=== PATIENT | female | born 1995 | race Caucasian/White ===

== ENCOUNTER → 2017-06-19 10:52 | Outpatient (CLI) | payer SELFPAY ==
[2017-06-20 10:19] LABS: HCG BETA-SUBUNIT QUANT. 74 mIU/mL (.)
== END ==
PROVIDERS: Visit Provider Nurse Practitioner Women's Health
DX: N92.6 Irregular menstruation, unspecified (principal)
CPT/HCPCS: 36415; 84702

== ENCOUNTER → 2017-06-21 11:47 | Outpatient (CLI) | payer SELFPAY ==
--- NOTE | 2017-06-21 11:49 | US_ITS ---
STUDY: ULTRASOUND OF THE FEMALE PELVIS - COMPLETE REASON FOR EXAM: Female, 22 years old. IUD. Positive test. LMP: Unknown. TECHNIQUE: Transabdominal and Transvaginal TECHNICAL QUALITY: Adequate. COMPARISON: None. FINDINGS: The uterus is anteverted and is in a midline position. The uterus measures 8.6 cm x 6.8 cm x 4.2 cm. Normal uterine cervix. The endometrium measures 8.0 mm in thickness, and is hyperechoic. There is no demonstrated endometrial mass. There is no demonstrated myometrial mass. I.U.D. - The patient does have an I.U.D. the IUD appears to be within the myometrium. The right ovary is visualized. The right ovary measures 4.3 cm x 2.8 cm x 2.5 cm. A dominant follicle is seen within it. This measures 1.2 cm x 1.2 cm x 1.2 cm. There is no visualized right adnexal mass or complex lesion. There is normal arterial and normal venous vascularity. The left ovary is visualized. The left ovary measures 2.8 cm x 1.7 cm x 1.3 cm. There is no left ovarian cyst or ovarian mass. There is no visualized left adnexal mass or complex lesion. There is normal arterial and normal venous vascularity. Distended urinary bladder. US/Transvaginal Non- IMPRESSION: The IUD is seen in the lower uterine segment entering the myometrium. No extrauterine gestational sac is seen. Dominant left ovarian follicle. Electronically Signed: Godo Tirado MD at 13:31 EST Tel [phone], Service support ,
--- NOTE | 2017-06-21 11:49 | US_ITS ---
STUDY: ULTRASOUND OF THE FEMALE PELVIS - COMPLETE REASON FOR EXAM: Female, 22 years old. IUD. Positive test. LMP: Unknown. TECHNIQUE: Transabdominal and Transvaginal TECHNICAL QUALITY: Adequate. COMPARISON: None. FINDINGS: The uterus is anteverted and is in a midline position. The uterus measures 8.6 cm x 6.8 cm x 4.2 cm. Normal uterine cervix. The endometrium measures 8.0 mm in thickness, and is hyperechoic. There is no demonstrated endometrial mass. There is no demonstrated myometrial mass. I.U.D. - The patient does have an I.U.D. the IUD appears to be within the myometrium. The right ovary is visualized. The right ovary measures 4.3 cm x 2.8 cm x 2.5 cm. A dominant follicle is seen within it. This measures 1.2 cm x 1.2 cm x 1.2 cm. There is no visualized right adnexal mass or complex lesion. There is normal arterial and normal venous vascularity. The left ovary is visualized. The left ovary measures 2.8 cm x 1.7 cm x 1.3 cm. There is no left ovarian cyst or ovarian mass. There is no visualized left adnexal mass or complex lesion. There is normal arterial and normal venous vascularity. Distended urinary bladder. US/Pelvic (Non ) IMPRESSION: The IUD is seen in the lower uterine segment entering the myometrium. No extrauterine gestational sac is seen. Dominant left ovarian follicle. Electronically Signed: Good Tirado MD at 13:31 EST Tel [phone], Service support ,
[2017-06-21 13:31] LABS: hCG Titer Quant., Serum 153 mIU/mL (<9 non-preg)
== END ==
PROVIDERS: Visit Provider Nurse Practitioner Women's Health
DX: Z32.01 Encounter for pregnancy test, result positive (principal); Z97.5 Presence of (intrauterine) contraceptive device
CPT/HCPCS: 36415; 76830; 76856; 84702; 93976

== ENCOUNTER → 2017-07-27 16:27 | Outpatient (CLI) | payer MEDICAID, SELFPAY ==
[2017-07-27 17:53] LABS: Absolute Lymphocyte Count 2.27 X10^3/ul (0.83-4.51); Absolute Neutrophil Count 9.3 X10^3/uL (2.0-7.7); Basophil# 0.04 X10^3/uL; Basophil% 0.3 % (0-1); Eosinophil# 0.24 X10^3/uL; Eosinophils% 1.9 % (0-5); Hematocrit 39.9 % (37-47); Hemoglobin 13.9 g/dl (12.0-15.0); Lymphocyte # 2.27 X10^3/ul (4.0); Mean Corp Hgb Conc 34.8 g/gl (32-36); Mean Corpuscular Hgb 30.3 pg (27.0-32.0); Mean Corpuscular Volume 86.9 fL (81-99); Mean Platelet Vol. 10.6 fl (6.2-12.0); Monocyte# 0.69 X10^3/uL; Monocyte% 5.5 % (0-10); Neutrophil # 9.26 X10^3/uL (2.7-7.7); Neutrophil % 73.7 % (47-70); Platelet Count 244 K/mm3 (150-450); RBC Distribution Width CV 12.9 % (11.6-14.6); RBC Distribution Width SD 40.4 fl (35.1-43.9); Red Blood Count 4.59 M/mm3 (4.2-5.4); White Blood Count 12.6 K/mm3 (4.4-11.0)
[2017-07-27 18:06] LABS: POSITIVE COUNT NO; POSITIVE DIFFERENTIAL NO; POSITIVE MORPHOLOGY NO
[2017-07-28 01:10] LABS: Rapid Plasmin Reagin (RPR) NONREACTIVE (NONREACTIVE)
[2017-07-28 10:27] LABS: HIV - WCH Non-Reactive (Nonreactive); Rubella IgG 86.8 IU/mL
[2017-07-29 11:02] LABS: HEPATITIS B SURFACE AG Negative (Negative)
== END ==
PROVIDERS: Visit Provider Obstetrics & Gynecology
DX: O09.90 Supervision of high risk pregnancy, unspecified, unspecified trimester (principal); Z3A.10 10 weeks gestation of pregnancy
CPT/HCPCS: 36415; 84702; 85025; 86592; 86703; 86762; 86850; 86900; 87340

== ENCOUNTER → 2017-07-27 18:11 | Outpatient (CLI) | payer MEDICAID, SELFPAY | PROVIDERS: Visit Provider Obstetrics & Gynecology | DX: O26.30 Retained intrauterine contraceptive device in pregnancy, unspecified trimester (principal); Z3A.00 Weeks of gestation of pregnancy not specified | CPT/HCPCS: 87077; 87086; 87088; 87186 ==

== ENCOUNTER → 2017-08-24 16:23 | Outpatient (CLI) | payer MEDICAID, SELFPAY | PROVIDERS: Visit Provider Nurse Practitioner Women's Health | DX: O09.91 Supervision of high risk pregnancy, unspecified, first trimester (principal); Z3A.00 Weeks of gestation of pregnancy not specified | CPT/HCPCS: 87086; 87088; 87186 ==

== ENCOUNTER → 2017-09-21 09:57 | Outpatient (CLI) | payer MEDICAID, SELFPAY ==
[2017-09-24 06:37] LABS: AFP Value-EIA 45.1 ng/mL (.); Comment Report (.); DIA MoM Value 1.07 (.); DIA Value-EIA 172.07 pg/mL (.); DSR (By Age) 1048 (.); DSR (Second Trimester) 8076 (.); Insulin Dep Diabetes No (.); Maternal Age At EDD 24.6 yr (.); hCG MoM 0.82 (.)
[2017-09-24 09:26] LABS: Gestat. Age Based On Ultrasound (.)
== END ==
PROVIDERS: Visit Provider Nurse Practitioner Women's Health
DX: O09.91 Supervision of high risk pregnancy, unspecified, first trimester (principal); Z3A.18 18 weeks gestation of pregnancy
CPT/HCPCS: 36415; 82105; 82677; 84702; 86336; 87086; 87088

== ENCOUNTER → 2017-09-21 15:40 | Outpatient (CLI) | payer SELFPAY | PROVIDERS: Visit Provider Nurse Practitioner Women's Health | DX: O09.91 Supervision of high risk pregnancy, unspecified, first trimester (principal); Z3A.00 Weeks of gestation of pregnancy not specified | CPT/HCPCS: 87086; 87088 ==

== ENCOUNTER → 2017-09-25 09:27 | Outpatient (CLI) | payer MEDICAID, SELFPAY ==
--- NOTE | 2017-09-25 09:29 | US_ITS ---
STUDY: SECOND AND THIRD TRIMESTER OBSTETRICAL ULTRASOUND REASON FOR EXAM: Female, 22 years old. Anatomy scan. LMP: 05/17/2017 : Transabdominal PRIOR ULTRASOUND: 06/21/2017. FINDINGS: There is a single intrauterine fetus. The fetus is in an oblique presentation with the head on the maternal right side. There is demonstrated cardiac activity with a heart rate of 152 bpm. There is a normal amniotic fluid volume. The largest amniotic fluid pocket measures 5.6 cm. The placenta is anterior in location and is not low lying. There are Grade 0 placental changes. Probable incidental accessory lobe. The cervix measures 4.3 cm in length. The bilateral adnexal regions are normal. BIOMETRY: BPD: 4.3: 19 weeks, 0 days HC: 15.5: 18 weeks, 4 days AC: 13.2: 18 weeks, 5 days FL: 2.7: 18 weeks, 3 days CI: FL/BPD: FL/HC: FL/AC: HC/AC: age by current US: 18 weeks, 5 days. PHYLLIS by current US: 02/21/2018. Estimated weight: 244 grams, +/- 36 grams, 34 %. age by prior US: weeks, days. PHYLLIS by prior US: . Age by LMP: 18 weeks, 5 days. PHYLLIS by LMP: 02/21/2018. ANATOMY: Gender: Male Cranium: Normal lateral ventricles. Normal choroid plexus. Normal cerebellum. Normal cisterna magna. Normal face, nose and lips. Chest: Normal 4-chamber heart. Abdomen/Pelvis: Normal diaphragm. Normal stomach. Normal abdominal wall. Normal cord insertion. Normal 3 vessel cord. Normal kidneys. Normal bladder. Spine: Normal cervical spine. Normal thoracic spine. Normal lumbar spine. Normal sacrum. Extremities: Normal bilateral upper extremities. Normal bilateral lower extremities. US/OB Anatomy Scan IMPRESSION: Single live fetus in a right oblique presentation. No demonstrated anatomic abnormality. Placenta is grade 0 and is not low-lying. Cervix is closed. age by current US: 18 weeks, 5 days. PHYLLIS by current US: 02/21/2018. Estimated weight: 244 grams, +/- 36 grams, 34 %. Electronically Signed: Cory Foster MD at 16:08 EDT , Service support ,
== END ==
PROVIDERS: Visit Provider Nurse Practitioner Women's Health
DX: O09.90 Supervision of high risk pregnancy, unspecified, unspecified trimester (principal); O26.30 Retained intrauterine contraceptive device in pregnancy, unspecified trimester; Z3A.00 Weeks of gestation of pregnancy not specified
CPT/HCPCS: 76805

== ENCOUNTER 2017-10-04 21:35 | Outpatient (CLI) | payer MEDICAID, SELFPAY ==
[2017-10-04 21:47] VITALS: BMI 28.7
[2017-10-04 22:22] LABS: Color, Urine Yellow (Yellow); Glucose, Dipstick Normal (Normal); Ketone-Dipstick Negative (Negative); Leukocyte Esterase-Dipstick 25 /ul (Negative); Nitrite-Dipstick Negative (Negative); Occult Blood-Urine Negative /ul (Negative); Protein-Dipstick Negative (Negative); Urine Bilirubin Dipstick Negative (Negative); Urine Clarity Clear (Clear); Urine Urobilinogen Normal (Normal); Urine pH 6.5 (5.0 - 8.0)
[2017-10-04 22:37] LABS: ROM Internal Control Test YES-OK TO RESULT pt. (Internal QC); ROM Patient Test Negative (Negative)
--- NOTE | 2017-10-08 21:39 | OB.TRI.NOTE ---
- Problem List (1) Abdominal pain affecting Status: Acute History of Present Illness Date of Service: 10/04/17 Was patient seen by the physician?: No Reason For Visit: CRAMPING, R/O LABOR Date of Service: 10/04/17 Final PHYLLIS: 03/03/18 Gestational age: 19 Weeks and 1 Days History of Present Illness: cramping and abdominal pain Home Medications Medication Instructions Recorded Vits [Prenatabs FA] 1 tab PO DAILY 01/16/15 Allergies No Known Allergies Allergy (Verified 10/04/17 22:05) - Pertinent Past Medical History Medical History: Past Medical History (Last Reviewed 09/21/17 @ 09:36 by Dai Rae) Anxiety Surgical History: Past Surgical History (Last Reviewed 09/21/17 @ 09:36 by Dai Rae) delivery delivered History of tonsillectomy Hx of appendectomy NST - FHR Rate Baby A Baseline: 140 Impression/Plan abdominal pain WNL liekly physiologic, ROM plus is negative cervix closed dc home
== END 2017-10-04 23:00 | disposition home or self-care (01) ==
LOC: WPOUT 21:40 → WP 21:40
PROVIDERS: Visit Provider Obstetrics & Gynecology
DX: O26.892 Other specified pregnancy related conditions, second trimester (principal); R10.9 Unspecified abdominal pain; Z3A.19 19 weeks gestation of pregnancy
CPT/HCPCS: 59050; 81002; 84112; 99218; G0378

== ENCOUNTER 2017-10-13 20:47 | Emergency (ER) | payer MEDICAID, SELFPAY ==
[2017-10-13 20:47] VITALS: BP 133/68; PULSE 95; RESP 16; TEMP 36.1; O2SAT 98; BMI 28.3
--- NOTE | 2017-10-13 22:01 | ED.VISSUMM ---
- ER Visit Summary Date of Service: 10/13/17 Chief Complaint: Sore throat, nasal congestion and nonproductive cough History of Present Illness: The patient is a 22 F woman who is approximately 21 weeks gestation presents with sore throat that started 3-4 days ago. She now complains of nonproductive cough with nasal congestion. She also reports change in voice. She has not had any drooling. She states it hurts to swallow. She states the pain is in the back of her throat. She is not point to the larynx. She denies headache. She does complain of subjective fever. She denies any visual symptoms. Denies neck pain or neck stiffness. She denies shortness of breath or dyspnea on exertion. This is her second . She states her [employer] consultant is Dr. Shabnam Turcios she has no other complaints. Please read written note. Physical Examination: Vital signs are remarkable for slight elevation in blood pressure of 133/68. Pupils equal round reactive. Extra muscle intact. Sclerae not injected. TMs normal. Nares patent. Posterior pharynx reveals postnasal drainage. There is mild congestion of the nasal mucosa. Trach is midline. There is no cervical lymphadenopathy. Insert cardiopulmonary exam she is alert and oriented ?3. Test Results: Centor score is 0. Emergency Department Course and Treatment: Patient was informed based on her consolation of symptoms she has a viral infection. Antibiotics are not indicated. Since her Centor score is 0 there is no need for strep testing. Treatment Plan: Symptomatic treatment Disposition: Discharged to home with appropriate home-going instructions Impression: Acute viral upper respiratory infection This note was generated with [employer] dictation software. It may contain incorrect words, spelling, and punctuation that were not noted in review of the chart prior to signing ED Disposition - Plan for ED Patient: Disposition: Home or Assisted Living Chief Complaint: Sore Throat Instructions: ED URI Viral Referrals: Care Physician,No Primary [Primary Care Provider] - Shabnam Turcios MD [STAFF PHYSICIAN] - As Needed
--- NOTE | 2017-10-13 22:05 | ED.DCSUM_ITS ---
- ER Visit Summary Date of Service: 10/13/17 Chief Complaint: Sore throat, nasal congestion and nonproductive cough History of Present Illness: The patient is a 22 F woman who is approximately 21 weeks gestation presents with sore throat that started 3-4 days ago. She now complains of nonproductive cough with nasal congestion. She also reports change in voice. She has not had any drooling. She states it hurts to swallow. She states the pain is in the back of her throat. She is not point to the larynx. She denies headache. She does complain of subjective fever. She denies any visual symptoms. Denies neck pain or neck stiffness. She denies shortness of breath or dyspnea on exertion. This is her second . She states her home staging specialist is Dr. Shabnam Turcios she has no other complaints. Please read written note. Physical Examination: Vital signs are remarkable for slight elevation in blood pressure of 133/68. Pupils equal round reactive. Extra muscle intact. Sclerae not injected. TMs normal. Nares patent. Posterior pharynx reveals postnasal drainage. There is mild congestion of the nasal mucosa. Trach is midline. There is no cervical lymphadenopathy. Insert cardiopulmonary exam she is alert and oriented ?3. Test Results: Centor score is 0. Emergency Department Course and Treatment: Patient was informed based on her consolation of symptoms she has a viral infection. Antibiotics are not indicated. Since her Centor score is 0 there is no need for strep testing. Treatment Plan: Symptomatic treatment Disposition: Discharged to home with appropriate home-going instructions Impression: Acute viral upper respiratory infection This note was generated with [employer] dictation software. It may contain incorrect words, spelling, and punctuation that were not noted in review of the chart prior to signing ED Disposition - Plan for ED Patient: Disposition: Home or Assisted Living Chief Complaint: Sore Throat Instructions: ED URI Viral Referrals: Care Physician,No Primary [Primary Care Provider] - Shabnam Turcios MD [STAFF PHYSICIAN] - As Needed
[2017-10-13 22:20] VITALS: BP 108/77; PULSE 69; RESP 15; O2SAT 98
== END 2017-10-13 22:27 | disposition home or self-care (01) ==
PROVIDERS: Emergency Provider Emergency Medicine
DX: J06.9 Acute upper respiratory infection, unspecified (principal)
CPT/HCPCS: 99282

== ENCOUNTER 2017-10-28 12:06 | Emergency (ER) | payer MEDICAID, SELFPAY ==
--- NOTE | 2017-10-28 12:06 | DT_ITS ---
This patient was seen during an EMR downtime October 23, 2017 - October 30, 2017. This patient may have a combination of paper and electronic documentation or all paper documentation. All documentation is viewable within the e-chart portion of [employer] for each patient visit.
--- NOTE | 2017-10-28 12:30 | US_ITS ---
STUDY: SECOND AND THIRD TRIMESTER OBSTETRICAL ULTRASOUND - LIMITED REASON FOR EXAM: Female, 22 years old. Pain with LMP: 05/17/2017 PRIOR ULTRASOUND: 09/25/2017 TECHNIQUE: Transabdominal ultrasound evaluation was performed. FINDINGS: There is a single intrauterine fetus. The fetus is in a breech presentation. There is demonstrated cardiac activity with a heart rate of 130 bpm. There is a normal amniotic fluid volume. The largest amniotic fluid pocket measures 7 x 4.9 cm. The placenta is anterior in location and is not low lying. Accessory lobe versus annular placenta. There are Grade 1 placental changes. The cervix measures 4.0 cm in length. BIOMETRY: BPD: 5.6 cm: 23 weeks, 1 days HC: 21.7 cm: 23 weeks, 5 days AC: 19.6 cm: 24 weeks, 2 days FL: 4 cm: 22 weeks, 6 days Age by LMP: 23 weeks, 3 days. PHYLLIS by LMP: 02/21/2018. age by prior US: 23 weeks, 3 days. PHYLLIS by prior US: 02/21/2018. age by current US: 23 weeks, 4 days. PHYLLIS by current US: 02/20/18. Estimated weight: 607 grams, +/- 89 grams, 49 percentile. US/OB Limited (No Biometrics) IMPRESSION: Single live intrauterine at current gestational age of 23 weeks 4 days with estimated date of delivery 02/20/2018. No evidence of complications currently Electronically Signed: Jean-Pierre Ruiz DO at 13:56 EDT Tel , Service support ,
--- NOTE | 2017-10-28 12:30 | US_ITS ---
STUDY: ABDOMINAL ULTRASOUND - RIGHT UPPER QUADRANT REASON FOR VISIT: Female, 22 years old. Abdominal pain TECHNIQUE: Ultrasound evaluation of the right upper quadrant was performed with real-time and static santacruz-scale imaging. TECHNICAL QUALITY: Adequate. COMPARISON: None. FINDINGS: Liver: The liver measures 14.5 cm. There is normal echogenicity of the liver. The bile ducts are within normal limits. There is hepatic color flow. The direction of portal flow is hepatopetal. There is no demonstrated mass lesion. Gallbladder: Normal distended gallbladder. The gallbladder wall measures 2.5 mm. There is a negative sonographic Massey's sign. There is no pericholecystic fluid. There are no gallstones. Common Bile Duct (C.B.D.): The common bile duct measures 2.4 mm. Pancreas: Normal size of the head, body and tail of the pancreas. There is normal echogenicity of the pancreas. There is no demonstrated pancreatic mass or cyst. Right Kidney: Normal size of the right kidney. The right kidney measures 12.1 cm. Normal renal cortex. The right cortex measures 2.6 cm. There is no demonstrated renal mass or cyst. There is no right hydronephrosis. US/Abdomen Limited IMPRESSION: Normal right upper quadrant ultrasound examination. Electronically Signed: Jean-Pierre Ruiz DO at 13:53 EDT Tel , Service support ,
[2017-10-31 07:13] LABS: Color, Urine Yellow (Yellow); Glucose, Dipstick NEGATIVE (Normal); Ketone-Dipstick Negative (Negative); Leukocyte Esterase-Dipstick Negative /ul (Negative); Nitrite-Dipstick Negative (Negative); Occult Blood-Urine Negative /ul (Negative); Protein-Dipstick Negative (Negative); Urine Bilirubin Dipstick Negative (Negative); Urine Clarity Sl Cldy (Clear); Urine Urobilinogen Normal (Normal)
[2017-10-31 09:40] LABS: ALB/GLOB Ratio 0.7 RATIO (0.9-2.4); AST(SGOT) 12 U/L (15-37); Alanine Aminotransfer ALT/SGPT 17 U/L (13-56); Albumin, Serum 2.8 g/dL (3.2-5.0); Alkaline Phosphatase 62 U/L (45-117); Anion Gap 8 (5-15); BUN 7 mg/dL (7-18); BUN/Creat Ratio 18.9 RATIO (10-20); Calcium,Total 8.4 mg/dL (8.5-10.1); Chloride 107 mmol/L (98-107); Creatinine, Serum 0.37 mg/dL (0.55-1.02); EST Glomerular Filtration Rate 228 mL/min (>60); Est Glom Filt Rate - Afr Amer 276 mL/min (>60); Globulin 3.9 g/dL (2.2-4.2); Glucose 79 mg/dL (74-106); Lipase 92 U/L (73-393); Potassium 4.2 mmol/L (3.5-5.1); Protein, Total 6.7 g/dL (6.4-8.2); Sodium Level 141 mmol/L (136-145)
[2017-10-31 21:23] LABS: Absolute Lymphocyte Count 0.92 X10^3/ul (0.83-4.51); Absolute Neutrophil Count 15.5 X10^3/uL (2.0-7.7); Basophil% 0.3 % (0-1); Hematocrit 36.7 % (37-47); Hemoglobin 12.4 g/dl (12.0-15.0); Lymphocyte # 0.92 X10^3/ul (4.0); Lymphocyte % 5.2 % (19-41); Mean Corp Hgb Conc 33.8 g/gl (32-36); Mean Corpuscular Hgb 31.5 pg (27.0-32.0); Mean Corpuscular Volume 93.1 fL (81-99); Mean Platelet Vol. 10.5 fl (6.2-12.0); Monocyte% 4.7 % (0-10); Neutrophil # 15.48 X10^3/uL (2.7-7.7); Neutrophil % 87.3 % (47-70); POSITIVE COUNT NO; POSITIVE DIFFERENTIAL NO; POSITIVE MORPHOLOGY NO; Platelet Count 221 K/mm3 (150-450); RBC Distribution Width CV 13.2 % (11.6-14.6); RBC Distribution Width SD 43.3 fl (35.1-43.9); Red Blood Count 3.94 M/mm3 (4.2-5.4); White Blood Count 17.7 K/mm3 (4.4-11.0)
[2017-10-31 21:24] LABS: Basophil# 0.05 X10^3/uL; Eosinophil# 0.17 X10^3/uL; Monocyte# 0.84 X10^3/uL
== END 2017-10-28 14:15 | disposition home or self-care (01) ==
LOC: ED 10-29 13:15
PROVIDERS: Emergency Medicine; Emergency Provider Emergency Medicine
DX: O26.892 Other specified pregnancy related conditions, second trimester (principal); R10.11 Right upper quadrant pain; R19.7 Diarrhea, unspecified; O21.2 Late vomiting of pregnancy; Z3A.22 22 weeks gestation of pregnancy
CPT/HCPCS: 76705; 76815; 80053; 81002; 83690; 85025; 87086; 96361; 96374; 96375; 99284; A4216; J2405

== ENCOUNTER → 2017-11-20 17:47 | Outpatient (CLI) | payer MEDICAID, SELFPAY ==
[2017-11-20 20:35] LABS: Chlamydia Trachomatis by PCR Negative (Negative); Neisserai gonorrhoeae by PCR Negative (Negative); Probe Check PASS; Sample Adequacy Control PASS; Specimen Processing Control PASS
== END ==
PROVIDERS: Visit Provider Obstetrics & Gynecology
DX: O09.90 Supervision of high risk pregnancy, unspecified, unspecified trimester (principal)
CPT/HCPCS: 87491; 87591

== ENCOUNTER → 2017-12-05 11:26 | Outpatient (CLI) | payer MEDICAID, SELFPAY ==
[2017-12-05 12:55] LABS: Absolute Lymphocyte Count 1.44 X10^3/ul (0.83-4.51); Absolute Neutrophil Count 10.4 X10^3/uL (2.0-7.7); Basophil# 0.03 X10^3/uL; Basophil% 0.2 % (0-1); Eosinophil# 0.29 X10^3/uL; Eosinophils% 2.2 % (0-5); Hematocrit 35.5 % (37-47); Hemoglobin 11.6 g/dl (12.0-15.0); Lymphocyte # 1.44 X10^3/ul (4.0); Lymphocyte % 11.2 % (19-41); Mean Corp Hgb Conc 32.7 g/gl (32-36); Mean Corpuscular Volume 91.7 fL (81-99); Mean Platelet Vol. 10.6 fl (6.2-12.0); Monocyte# 0.56 X10^3/uL; Monocyte% 4.3 % (0-10); Neutrophil % 80.8 % (47-70); Platelet Count 193 K/mm3 (150-450); RBC Distribution Width CV 13.4 % (11.6-14.6); RBC Distribution Width SD 44.5 fl (35.1-43.9); Red Blood Count 3.87 M/mm3 (4.2-5.4); White Blood Count 12.9 K/mm3 (4.4-11.0)
[2017-12-05 12:57] LABS: POSITIVE COUNT NO; POSITIVE DIFFERENTIAL NO; POSITIVE MORPHOLOGY NO
[2017-12-05 13:24] LABS: Glucose Challenge Gest 1H 50g 151 mg/dL (70-140)
== END ==
PROVIDERS: Nurse Practitioner Women's Health; Visit Provider Obstetrics & Gynecology
DX: O09.90 Supervision of high risk pregnancy, unspecified, unspecified trimester (principal); Z3A.00 Weeks of gestation of pregnancy not specified
CPT/HCPCS: 36415; 82950; 85025

== ENCOUNTER → 2017-12-12 06:41 | Outpatient (CLI) | payer MEDICAID, SELFPAY ==
[2017-12-12 07:27] LABS: Glucose GTT-Gestation. Fasting 87 mg/dL (<105)
[2017-12-12 08:51] LABS: Glucose GTT-Gestational 1 Hr 126 mg/dL (<190)
[2017-12-12 09:35] LABS: Glucose GTT-Gestational 2 Hr 112 mg/dL (<165)
[2017-12-12 11:11] LABS: Glucose GTT-Gestational 3 Hr 138 L (<145)
== END ==
PROVIDERS: Nurse Practitioner Women's Health; Visit Provider Obstetrics & Gynecology
DX: O99.810 Abnormal glucose complicating pregnancy (principal); Z3A.00 Weeks of gestation of pregnancy not specified
CPT/HCPCS: 36415; 82951; 82952

== ENCOUNTER 2018-01-03 21:50 | Outpatient (CLI) | payer MEDICAID, SELFPAY ==
--- NOTE | 2018-01-03 22:32 | OB.TRI.HP_ITS ---
- Problem List (1) Threatened labor Status: Acute History of Present Illness Date of Service: 01/03/18 Was patient seen by the physician?: Yes Reason For Visit: R/O LABOR Date of Service: 01/03/18 Final PHYLLIS: 02/21/18 Gestational age: 33 Weeks and 0 Days History of Present Illness: 22 yo @ 33 weeks presents with co regular ctx q 2-5 min x 2 hrs. she has been working tonight, denies any vb lof admits good fm. she has had a complicated by retained IUD Allergies No Known Allergies Allergy (Verified 12/28/17 08:11) - Pertinent Past Medical History Medical History: Past Medical History (Last Reviewed 12/28/17 @ 08:10 by Marianela Schulz) Anxiety Surgical History: Past Surgical History (Last Reviewed 12/28/17 @ 08:10 by Marianela Schulz) delivery delivered History of tonsillectomy Hx of appendectomy Review of Systems Constitutional: Denies: Fever, Malaise Eyes: Denies: Blurred vision, Vision Change HEENT: Denies: Head Aches, Visual Changes Cardiovascular: Denies: Chest Pain, Palpitations Respiratory: Denies: Cough, Shortness of Breath, Wheezing Gastrointestinal: Reports: Abdominal Pain. 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
[2018-01-03 23:00] VITALS: BMI 32.5
[2018-01-03 23:38] LABS: Mucous, Urine 0 SEEN /hpf (<or=2+); Red Blood Cells-Urine 0 SEEN /hpf (0-5); White Blood Cells 0 SEEN /hpf (0-5)
[2018-01-03 23:39] LABS: Color, Urine Straw (Yellow); Glucose, Dipstick Normal (Normal); Ketone-Dipstick Negative (Negative); Leukocyte Esterase-Dipstick 100 /ul (Negative); Nitrite-Dipstick Negative (Negative); Occult Blood-Urine Negative /ul (Negative); Protein-Dipstick Negative (Negative); Urine Bilirubin Dipstick Negative (Negative); Urine Clarity Clear (Clear); Urine Urobilinogen Normal (Normal)
[2018-01-03 23:47] LABS: Bacteria 1+ /hpf (None Seen); Squamous Epithelial Cells - UA 0-5 SEEN /hpf (5-10)
[2018-01-04 00:25] VITALS: RESP 18
--- NOTE | 2018-01-04 00:35 | NURSING ---
Dr. Turcios in pt room at 2230 and performed SVE.
== END 2018-01-04 00:25 | disposition home or self-care (01) ==
LOC: WPOUT 22:05 → WP 22:06
PROVIDERS: Visit Provider Obstetrics & Gynecology
DX: O60.03 Preterm labor without delivery, third trimester (principal); Z3A.33 33 weeks gestation of pregnancy
CPT/HCPCS: 59025; 59050; 81001; 87086; 87088; 99218; G0378

== ENCOUNTER → 2018-01-11 17:59 | Outpatient (CLI) | payer MEDICAID, SELFPAY | PROVIDERS: Visit Provider Nurse Practitioner Women's Health | DX: N89.8 Other specified noninflammatory disorders of vagina (principal) | CPT/HCPCS: 87070; 87077; 87205 ==

== ENCOUNTER → 2018-01-26 08:49 | Outpatient (CLI) | payer MEDICAID, SELFPAY ==
[2018-01-26 19:38] LABS: Group B Strep DNA By PCR POSITIVE (Negative); Probe Check PASS
== END ==
PROVIDERS: Visit Provider Obstetrics & Gynecology
DX: O09.299 Supervision of pregnancy with other poor reproductive or obstetric history, unspecified trimester (principal); Z3A.36 36 weeks gestation of pregnancy
CPT/HCPCS: 76816; 87653

== ENCOUNTER 2018-02-07 10:40 | Outpatient (CLI) | payer MEDICAID, SELFPAY ==
[2018-02-07 11:10] VITALS: BMI 33.7
--- NOTE | 2018-02-07 18:00 | OB.TRI.NOTE ---
- Problem List (1) 38 weeks gestation of Status: Acute (2) False labor after 37 completed weeks of gestation Status: Acute History of Present Illness Reason For Visit: R/O LABOR Date of Service: 02/07/18 Final PHYLLIS: 02/21/18 Gestational age: 38 Weeks and 0 Days Allergies No Known Allergies Allergy (Verified 02/14/18 09:43) - Pertinent Past Medical History Medical History: Past Medical History (Last Reviewed 02/13/18 @ 13:08 by Marianela Schulz) Anxiety Surgical History: Past Surgical History (Last Reviewed 02/13/18 @ 13:08 by Marianela Schulz) delivery delivered History of tonsillectomy Hx of appendectomy NST - FHR Rate Baby A Baseline: 130 Variability:: Moderate Accelerations:: 15 x 15 Decelerations:: None NST Reactive:: Yes FHR Category:: Category I Uterine Activity:: 0/10 Impression/Plan SVE 1/l/h per RN Reactive NST Cat I FHR d/c home
== END 2018-02-07 11:15 | disposition home or self-care (01) ==
LOC: WPOUT 10:53 → WP 10:54
PROVIDERS: Visit Provider Obstetrics & Gynecology
DX: O47.1 False labor at or after 37 completed weeks of gestation (principal); Z3A.38 38 weeks gestation of pregnancy; O34.211 Maternal care for low transverse scar from previous cesarean delivery
CPT/HCPCS: 59025; 59050; 99218; G0378

== ENCOUNTER 2018-02-14 09:23 | Inpatient (IN) | payer MEDICAID, SELFPAY ==
[2018-02-14] VITALS (18 sets, daily range): BP systolic 101–126; BP diastolic 56–70; PULSE 72–106; RESP 14–18; TEMP 36.1–36.8; O2SAT 87–100; BMI 33.9
[2018-02-14] MEDS: Lactated Ringers 1,000 ML 999 ML IV (10:00)
[2018-02-14 10:26] LABS: Differential Indicated MANUAL DIFF; Hematocrit 35.9 % (37-47); Mean Corp Hgb Conc 33.4 g/gl (32-36); Mean Corpuscular Hgb 29.7 pg (27.0-32.0); Mean Corpuscular Volume 88.9 fL (81-99); Mean Platelet Vol. 10.6 fl (6.2-12.0); POSITIVE COUNT YES; POSITIVE DIFFERENTIAL NO; POSITIVE MORPHOLOGY YES; Platelet Count 169 K/mm3 (150-450); RBC Distribution Width CV 13.3 % (11.6-14.6); RBC Distribution Width SD 42.8 fl (35.1-43.9); Red Blood Count 4.04 M/mm3 (4.2-5.4); White Blood Count 11.5 K/mm3 (4.4-11.0)
[2018-02-14] MEDS: Lactated Ringers 1,000 ML 150 ML IV (11:01)
[2018-02-14 11:02] LABS: Eosinophil 2 % (0-5); Lymphocyte 20 % (19-41); Metamyelocyte 1 % (0-1); Monocyte 2 % (0-10); Neutrophil-Band 1 % (0-5); Neutrophil-Segmented 74 % (47-70); Platelet Estimate ADEQUATE (ADEQ); Red Cell Morphology NORM C+C NORMAL (NORM C&C); Total Cells Counted 100 (MANUAL DIFF)
[2018-02-14] MEDS: Sodium Citrate/Citric Acid 30 ML UDC PO (12:01)
[2018-02-14] MEDS: Cefazolin 2 GM in 0.9% Normal Saline 100 ML IV (12:08)
--- NOTE | 2018-02-14 12:40 | HP.PCM_ITS ---
- Problem List (1) Positive GBS test Status: Acute Comment: PCN in labor (2) Status: Acute Qualifiers: Comment: negative quad screen. anatomy US normal. carrier screening declined. (3) History of macrosomia in in prior , currently Status: Acute Comment: previous 9lb 13 ounces cs secondary to prolapsed cord, check growth us at 36 weeks (4) Abnormal glucose affecting Status: Acute Comment: 3 hr GTT ordered (5) History of Status: Acute Comment: 79% chance of success, discussed risks benefits alternatives, uptodate education given (6) UTI (urinary tract infection) in in first trimester Status: Acute Comment: marcobid; 07/24: rpt culture E Coli-keflex; Repeat culture collected 09/21/17/negative (7) Supervision of high-risk Status: Acute Qualifiers: Comment: PRR PHYLLIS 02/21/18 boy [facility] [place] boyfriend Virgil (8) complicated by intrauterine device (IUD) Status: Acute Comment: discussed with DANA- recommend keeping IUD in situ, in low/mid portion of uterus History Date of Admission: 01/22/15 Final PHYLLIS: 02/21/18 Gestational age: 39 Weeks and 0 Days History of this : This is a 22 year-old, , at 39 weeks gestational age presents for RLTCS. she declines TOLAC. she has had a complicateed by IUD in place., Medical History: Medical History (Last Reviewed 02/13/18 @ 13:08 by Marianela Schulz) Anxiety F41.9 Surgical History: Surgical History (Last Reviewed 02/13/18 @ 13:08 by Marianela Schulz) delivery delivered O82 History of tonsillectomy Z98.890, Z90.89 Hx of appendectomy Z98.890, Z90.49 Allergies No Known Allergies Allergy (Verified 02/14/18 09:43) Home Medications: Home Medications Vits [Prenatabs FA] 1 tab PO DAILY 01/16/15 Smoking Status: Former smoker Alcohol: None Number of Fetus(es): 1 Heart Tracin History Past Pregnancies: Past Pregnancies previous term cs sec cord prolapse, had macrosomia Delivery Date Name GA/Weeks Outcome Route Weight Infant Gender Labor Length Anesthesia Delivery Location Provider FOB Labs: Mom's Labs & Results 02/14/18 02/14/18 09:50 09:50 WBC 11.5 H RBC 4.04 L Hgb 12.0 Hct 35.9 L MCV 88.9 MCH 29.7 MCHC 33.4 RDW 13.3 RDW Differential 42.8 Plt Count 169 MPV 10.6 Neut % (Auto) Not Reportable Absolute Neuts (auto) Not Reportable Total Counted 100 Neutrophils % (Manual) 74 H Band Neutrophils % 1 Lymphocytes % (Manual) 20 Monocytes % (Manual) 2 Eosinophils % (Manual) 2 Metamyelocytes % 1 Diff Path Review N/A Platelet Estimate ADEQUATE RBC Morphology NORM C+C Blood Type O POSITIVE Antibody Screen NEGATIVE Course Did the patient receive Yes care? Labs Blood Type: O RH: POSITIVE RPR/VDRL/Syphilis Nonreactive Rubella status Immune HbSAg Negative Date Done: 07/27/17 Chlamydia Negative Gonorrhea Negative HIV/AIDS Non-Reactive Group B Strep: Positive Current Obstetrical History Gestational Diabetes No Incompetent Cervix No Infertility No IUGR No Macrosomia No Hypertension/Pre-eclampsia No Placenta Previa/Abruption No PTL/PROM No Uterine anomaly No Oligohydramnios No Polyhydramnios No Multiple gestation No Past Medical History Asthma No Diabetes No Hypertension No Heart disease No Mitral valve prolapse No Neurologic/Seizure disorder/ No Migraines Kidney disease No Liver disease No Varicosities No Clotting disorders/Hx of DVT No Thyroid Dysfunction No Other medical diseases No Psychiatric disorders No Major trauma No Abnormal PAP smear No Sleep apnea No Mammogram in the last 2 years No Social History Marital Status: SINGLE Alleged father Camryn Hx Smoking Yes Smoking Status Former smoker Review of Systems Constitutional: Denies: Fever, Malaise Eyes: Denies: Blurred vision, Vision Change HEENT: Denies: Head Aches, Visual Changes Cardiovascular: Denies: Chest Pain, Palpitations Respiratory: Denies: Cough, Shortness of Breath, Wheezing Gastrointestinal: Denies: Abdominal Pain, Diarrhea, Nausea, Vomiting Genitourinary: Denies: Dysuria, Hematuria Musculoskeletal: Denies: Joint Pain, Muscle pain Skin: Denies: Lesions, Rash Neurological: Denies: Blurred vision, Focal weakness, Headaches Psychiatric: Denies: Anxiety, Depression Endocrine: Denies: Heat/ Cold Intolerance Hematologic/ Lymphatic: Denies: Easy Bruising, Easy Bleeding Physical Exam General: Alert, Cooperative, No apparent distress HEENT: Atraumatic, Normocephalic. Negative for: Thyromegaly, Lymphadenopathy Cardiovascular: Regular rate Lungs: Normal air movement Abdomen: Soft, Non Tender, Gravid Neurological: Deep Tendon Reflexes 2+/4 and Symmetrical, Neuro grossly intact. 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 Negative for: Vulvar lesions Estimated gestational size: Appropriate for gestational size Presentation: Cephalic Assessment/Plan All Active Problems (Last Reviewed 02/13/18 @ 13:08 by Marianela Schulz) Positive GBS test (Acute) (Acute) History of macrosomia in infant in prior , currently (Acute) Abnormal glucose affecting (Acute) History of (Acute) UTI (urinary tract infection) in in first trimester (Acute) Supervision of high-risk (Acute) complicated by intrauterine device (IUD) (Acute) Abdominal pain affecting (Resolved) screening encounter (Resolved) Threatened labor (Resolved) This is a 22 year-old, at 39 weeks gestational age. plan RLTCS, iud removal.
--- NOTE | 2018-02-14 12:43 | OP.PCM_ITS ---
Problem List (1) Positive GBS test Status: Acute Comment: PCN in labor (2) Status: Acute Qualifiers: Comment: negative quad screen. anatomy US normal. carrier screening declined. (3) History of macrosomia in infant in prior , currently Status: Acute Comment: previous 9lb 13 ounces cs secondary to prolapsed cord, check growth us at 36 weeks (4) Abnormal glucose affecting Status: Acute Comment: 3 hr GTT ordered (5) History of Status: Acute Comment: 79% chance of success, discussed risks benefits alternatives, uptodate education given (6) UTI (urinary tract infection) in in first trimester Status: Acute Comment: marcobid; 07/24: rpt culture E Coli-keflex; Repeat culture collected 09/21/17/negative (7) Supervision of high-risk Status: Acute Qualifiers: Comment: PRR PHYLLIS 02/21/18 boy [facility] boyfriend [place] (8) complicated by intrauterine device (IUD) Status: Acute Comment: discussed with DANA- recommend keeping IUD in situ, in low/mid portion of uterus Report of Operation Date of Procedure: 02/14/18 Pre-Operative Diagnosis: prev csection declines tolac Post-Operative Diagnosis: same Surgery/Procedure Performed:: rltcs Description of Surgical Findings:: normal uterus tubes ovaries vertex male infant, iud found intraabdominal attached to uterus and omentum. 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 Spinal anesthesia was placed without difficulty. Torres catheter was placed. The patient was placed in the dorsal supine position with leftward tilt. Patient was prepped and draped in the normal sterile fashion. Pfannenstiel skin incision was made with the scalpel and carried through to the underlying layer of fascia with the scalpel. Fascia was nicked in the midline and the incision extended laterally. The rectus bellies were dissected off superiorly and inferiorly with out complication both sharply and bluntly. The peritoneum was entered digitally. The incision was stretched and a low transverse uterine incision was made with the scalpel. The 's head was delivered atraumatically followed by the anterior and posterior shoulders without complication the rest of the infant delivered. The cord was clamped and cut and the infant was handed off to awaiting nurse. The placenta was delivered spontaneously immediately following and was noted to be intact and have a three- vessel cord. The uterus was exteriorized cleared of all clots and debris, and the incision was closed in a double layer closure using #1 Monocryl. the iud was then found chronically perforated and attached to the fundus of the uterus through a posterior fundal perforation connected through to the omentum and encased in omentum. this was dissected out and removed without complication, no active uterine perforation seen The uterus was returned to the maternal abdomen and gutters were cleared of all clots and debris. The ovaries and fallopian tubes were noted to be within normal limits. The peritoneum was closed with 3-0 Monocryl in a running fashion. Fascia was closed with 0 PDS in a running fashion. Subcutaneous tissue was copiously irrigated and the skin was closed with 3-0 Monocryl in a subcuticular fashion. Mepilex dressing were applied without complication. Patient was taken to recovery in stable condition. Grafts/Implants Used: none - Complications none - Admit VTE Documentation VTE Present on Admission: No VTE Mechan Device Prophylaxis: SCD's
[2018-02-14] MEDS: Oxytocin 30 units/NS 500 ml 30 UNITS/500 ML IV.SOLN 167 UNITS IV (12:55)
[2018-02-14] MEDS: Lactated Ringers 1,000 ML 100 ML IV ×2 (13:35→22:19)
[2018-02-14] MEDS: Ketorolac 30 MG/ML Syringe IV (18:15)
[2018-02-15] VITALS (11 sets, daily range): BP systolic 97–124; BP diastolic 54–75; PULSE 75–86; RESP 16–18; TEMP 35.9–36.8; O2SAT 93–98
[2018-02-15] MEDS: Ketorolac 30 MG/ML Syringe IV ×5 (00:16→23:51)
[2018-02-15 05:38] LABS: Hemoglobin 10.5 g/dl (12.0-15.0); Mean Corp Hgb Conc 33.9 g/gl (32-36); Mean Corpuscular Hgb 30.4 pg (27.0-32.0); Mean Corpuscular Volume 89.9 fL (81-99); Mean Platelet Vol. 9.8 fl (6.2-12.0); Platelet Count 147 K/mm3 (150-450); RBC Distribution Width CV 13.3 % (11.6-14.6); RBC Distribution Width SD 42.7 fl (35.1-43.9); Red Blood Count 3.45 M/mm3 (4.2-5.4); White Blood Count 11.9 K/mm3 (4.4-11.0)
[2018-02-15 05:39] LABS: Scan Indicated on CBC? Y/N NO
--- NOTE | 2018-02-15 07:57 | PCM.PN.OB ---
Subjective: Doing well. Pain controlled. No CP, SOB. - Physical Exam General: Alert, Oriented x3 Abdomen: Soft, Non-Distended, - - FF below U. Minimal tenderness Vital Signs Temp Pulse Resp BP Pulse Ox 98.2 F 78 16 97/54 L 96 02/15/18 04:35 02/15/18 05:30 02/15/18 05:30 02/15/18 04:35 02/15/18 05:30 Oxygen Delivery Method Room Air Weight: 197 lb 12.8 oz Body Mass Index (BMI) 33.9 Intake and Output for Last 24 Hours 02/13/18 02/14/18 02/15/18 23:59 23:59 23:59 Intake Total 2345 / 2345 1101 / 1101 Output Total 250 / 250 1200 / 1200 Balance 2095 / 2095 -99 / -99 Laboratory Tests Past 24 Hrs 02/14/18 02/14/18 02/15/18 09:50 09:50 05:30 WBC 11.5 H 11.9 H RBC 4.04 L 3.45 L Hgb 12.0 10.5 L Hct 35.9 L 31.0 L MCV 88.9 89.9 MCH 29.7 30.4 MCHC 33.4 33.9 RDW 13.3 13.3 RDW Differential 42.8 42.7 Plt Count 169 147 L MPV 10.6 9.8 Neut % (Auto) Not Reportable Absolute Neuts (auto) Not Reportable Total Counted 100 Neutrophils % (Manual) 74 H Band Neutrophils % 1 Lymphocytes % (Manual) 20 Monocytes % (Manual) 2 Eosinophils % (Manual) 2 Metamyelocytes % 1 Diff Path Review N/A Platelet Estimate ADEQUATE RBC Morphology NORM C+C Blood Type O POSITIVE Antibody Screen NEGATIVE Medical Necessity - Tobacco Use Smoking Status: Former smoker Assessment/Plan All Active Problems (Last Reviewed 02/13/18 @ 13:08 by Marianela Schulz) Positive GBS test (Acute) (Acute) History of macrosomia in infant in prior , currently (Acute) Abnormal glucose affecting (Acute) History of (Acute) UTI (urinary tract infection) in in first trimester (Acute) Supervision of high-risk (Acute) complicated by intrauterine device (IUD) (Acute) Abdominal pain affecting (Resolved) screening encounter (Resolved) Threatened labor (Resolved) LTRCS POD#1 Routine care. Up to ambulate today. . Pain controlled
[2018-02-15] MEDS: Prenatal Vits Tablet 1 TABLET PO (11:39)
[2018-02-15] MEDS: 0.9% Saline Lock 10 ML Syringe IV ×3 (11:39→23:51)
[2018-02-15] MEDS: Senna/Docusate Sodium 1 Tablet PO (11:40)
[2018-02-15] MEDS: oxyCODONE 5 MG Tablet PO ×2 (13:13→17:37)
[2018-02-16 02:00] VITALS: BP 114/80; PULSE 93; RESP 16; TEMP 36.5
[2018-02-16] MEDS: 0.9% Saline Lock 10 ML Syringe IV ×2 (06:08→11:22)
[2018-02-16] MEDS: Ketorolac 30 MG/ML Syringe IV ×2 (06:08→11:22)
[2018-02-16 08:45] VITALS: BP 122/81; PULSE 87; RESP 18; TEMP 36.4; O2SAT 98
[2018-02-16] MEDS: Acetaminophen 500 MG Tablet 1000 MG PO (09:18)
[2018-02-16] MEDS: Senna/Docusate Sodium 1 Tablet PO (10:39)
--- NOTE | 2018-02-16 11:04 | DCINST_ITS ---
Discharge Diet: No Restrictions Discharge Activity: May Not Drive - for 2 weeks, May not drive while taking narcotic pain medications., May Shower, May Take a Tub Bath - in 7 days May resume sexual activity in: 4-6 weeks Lifting Restrictions: 20 pounds Additional Activity Instructions:: Nothing in the vagina for 4-6 weeks. You may return to work/school in 6 weeks. Call your doctor if your incision/area has: Continuous Slow Oozing, Sudden Increased Bleeding, Increased Pain/ Swelling, Increased Redness, Foul Smelling Discharge Call your doctor if you observe: Fever of 101 or Higher, Using more than one pad per hour - for 2 hours Suture Line Care: Avoid Pulling/Pushing, Avoid Pinching/Bending Cleanse incision/area with: Keep Dressing Clean & Dry Additional Instructions: If you experience any of the following, contact your healthcare provider. * Bleeding that soaks a pad every hour for 2 hours * Fever 100.4 or higher * Unrelieved incision or abdominal pain * Swelling, redness, discharge or bleeding from your incision or episiotomy site * Your incision begins to separate * Problems urinating (including inability to urinate or burning while urinating). * Visual changes * Severe headache * Flu-like symptoms * Pain or redness in one of both of your breasts * Pain, warmth, tenderness or swelling in your legs, especially the calf area * Frequent nausea and vomiting * Symptoms of depression or anxiety If you experience any of the following, call 911 or go to the nearest Emergency Room. * Chest pain * Problems breathing * Seizure activity * Partial or complete paralysis of a body part, slurred speech, weakness or drooping of the face, or a sudden inability to walk or hold your balance Allergies/Adverse Reactions: Allergies No Known Allergies Allergy (Verified 02/14/18 09:43) Medications to take at Discharge Vits [Prenatabs FA] 1 tab PO DAILY 01/16/15 Naproxen [Naprosyn] 250 - 500 mg PO Q8H PRN PRN #30 tablet 02/16/18 Oxycodone HCl/Acetaminophen [Percocet 5-325] 1 - 2 tablet PO Q4H PRN PRN 7 Days #28 tablet 02/16/18 The following prescriptions were given: Oxycodone HCl/Acetaminophen [Percocet 5-325] 1 - 2 tablet PO Q4H PRN PRN 7 Days #28 tablet PRN Reason: Moderate-Severe pain Naproxen [Naprosyn] 250 - 500 mg PO Q8H PRN PRN #30 tablet PRN Reason: MILD PAIN Follow-Up: Call to make an appointment with your doctor for an incision check in 1-2 weeks. You will also need a 6 week post- follow up appointment. Test results from this visit will be discussed in further detail at your follow- up appointment, if applicable. Please Follow Up With: Shabnam Turcios MD - Call to make an appointment for an incision check in 1-2 [phone] When: You will need a post- check in 6 weeks. Primary Care Physician: Care Physician,No Primary [Primary Care Provider] -
== END 2018-02-16 11:45 | disposition home or self-care (01) | DRG 371 ==
PROVIDERS: Admitting Provider Obstetrics & Gynecology; Referring Provider Obstetrics & Gynecology; Visit Provider Obstetrics & Gynecology
PROC: 10D00Z1 Extraction of Products of Conception, Low, Open Approach (ICD-10-PCS; CPT 59514; principal; 2018-02-14 11:45)
DX: O34.211 Maternal care for low transverse scar from previous cesarean delivery (principal); O26.33 Retained intrauterine contraceptive device in pregnancy, third trimester; O99.824 Streptococcus B carrier state complicating childbirth; Z3A.39 39 weeks gestation of pregnancy; Z37.0 Single live birth; Z87.891 Personal history of nicotine dependence
CPT/HCPCS: 85025; 85027; 86850; 86900; 99218; J7120; 90686; A4216; G0378

== ENCOUNTER → 2018-03-28 17:02 | Outpatient (CLI) | payer MEDICAID, SELFPAY ==
[2018-04-03 11:50] LABS: HPV Reflexed? NOT INDICATED
== END ==
LOC: LAB 17:04 → LABSPEC 17:08
PROVIDERS: Referring Provider Obstetrics & Gynecology; Visit Provider Obstetrics & Gynecology
DX: Z12.4 Encounter for screening for malignant neoplasm of cervix (principal)
CPT/HCPCS: 87624; 88175; G0145

== ENCOUNTER 2022-12-27 18:17 | Emergency (ER) | payer MEDICAID, SELFPAY ==
[2022-12-27 18:18] VITALS: BP 124/89; PULSE 94; RESP 18; TEMP 36.2; O2SAT 100; BMI 29.5
[2022-12-27] MEDS: Acetaminophen 500 MG Tablet 1000 MG PO (19:18)
--- NOTE | 2022-12-27 19:30 | RAD_ITS ---
INDICATION: Injury/Pain EXAMINATION/TECHNIQUE: X-RAY - XR Spine Cervical 4 or 5 Views COMPARISON: FINDINGS: VERTEBRAE: Preserved vertebral body height. No fracture. No spondylolisthesis. Preservation of the normal cervical lordosis. No significant facet arthropathy. DISCS: Disc spaces are maintained. NECK SOFT TISSUES: No prevertebral soft tissue widening. LUNG APICES: Clear. RAD/Cerv Spine 2 or 3 Views IMPRESSION: No evidence of acute fracture or spondylolisthesis. Electronically Signed: Iram Marquez MD at 20:23 EDT Reading Location ID and State: [id number] / Tel , Service support ,
--- NOTE | 2022-12-27 19:30 | RAD_ITS ---
INDICATION: Injury/Pain EXAMINATION/TECHNIQUE: X-RAY - XR Spine Lumbar 2 or 3 Views COMPARISON: FINDINGS: VERTEBRAE: Preserved vertebral body height. No fracture. No spondylolisthesis. Preservation of the normal lumbar lordosis. No significant facet arthropathy. DISCS: Disc spaces are maintained. INCLUDED ABDOMEN: Included bowel gas pattern is non-obstructive. RAD/Lumbar Spine 2 or 3 Views IMPRESSION: No evidence of lumbar spinal fracture or spondylolisthesis. Electronically Signed: Iram Marquez MD at 20:24 EDT Reading Location ID and State: [id number] / Tel , Service support ,
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
[2022-12-27] MEDS: oxyCODONE 5 MG Tablet PO (21:13)
[2022-12-27 21:17] VITALS: PULSE 65; RESP 18; O2SAT 97
== END 2022-12-27 21:19 | disposition home or self-care (01) ==
PROVIDERS: Emergency Provider Emergency Medicine; Visit Provider Emergency Medicine
DX: S16.1XXA Strain of muscle, fascia and tendon at neck level, initial encounter (principal); S39.012A Strain of muscle, fascia and tendon of lower back, initial encounter; M25.552 Pain in left hip; M25.562 Pain in left knee; V49.40XA Driver injured in collision with unspecified motor vehicles in traffic accident, initial encounter; Y92.410 Unspecified street and highway as the place of occurrence of the external cause; Z87.891 Personal history of nicotine dependence
CPT/HCPCS: 72040; 72100; 99283

== ENCOUNTER 2022-12-28 17:33 | Emergency (ER) | payer MEDICAID, SELFPAY ==
[2022-12-28 17:34] VITALS: BP 128/96; PULSE 91; RESP 14; TEMP 36.4; O2SAT 100; BMI 28.3
--- NOTE | 2022-12-28 17:52 | CT_ITS ---
STUDY: CT CERVICAL SPINE WITHOUT CONTRAST REASON FOR EXAM: Female, 27 years old. Trauma RADIATION DOSAGE (If Supplied By Facility): CTDIvol = ( 16.02 ) mGy, DLP = ( 360.65 ) mGycm TECHNIQUE: High resolution transaxial imaging was performed without contrast material. Sagittal and coronal images were reconstructed. Individualized dose optimization techniques were used for this CT. COMPARISON: X-ray FINDINGS: Normal craniovertebral junction. Normal anterior atlantoaxial articulation. Normal odontoid process. Normal cervical lordosis. Normal vertebral bodies and posterior osseous elements. There is no acute fracture. C2-3: Normal endplates. Normal disc height and morphology. Normal central canal and intervertebral neuroforamina. C3-4: Normal endplates. Normal disc height and morphology. Normal central canal and intervertebral neuroforamina. C4-5: Normal endplates. Normal disc height and morphology. Normal central canal and intervertebral neuroforamina. C5-6: Normal endplates. Normal disc height and morphology. Normal central canal and intervertebral neuroforamina. C6-7: Normal endplates. Normal disc height and morphology. Normal central canal and intervertebral neuroforamina. C7-T1: Normal endplates. Normal disc height and morphology. Normal central canal and intervertebral neuroforamina. Normal visualized soft tissue structures. CT/Spine Cervical without Contras IMPRESSION: Normal unenhanced CT examination of the cervical spine. Electronically Signed: Avel Bennett MD at 19:39 EDT ,
--- NOTE | 2022-12-28 17:53 | CT_ITS ---
STUDY: CT BRAIN WITHOUT CONTRAST REASON FOR EXAM: Female, 27 years old. Pain RADIATION DOSAGE (If Supplied By Facility): CTDIvol = ( 47.06 ) mGy, DLP = ( 802.10 ) mGycm TECHNIQUE: Transaxial CT imaging of the brain was performed without administration of intravenous contrast material. Individualized dose optimization techniques were used for this CT. COMPARISON: No relevant priors. FINDINGS: Normal soft tissue structures. Normal calvarium. Normal size ventricles and extra-axial spaces for the patient''s age. Normal white matter tracts of the cerebral hemispheres. Normal basal ganglia and thalami. Normal brainstem. Normal cerebellum. There is no intracranial hemorrhage. There are no findings of an acute ischemic infarction. Normal visualized paranasal sinuses. CT/Brain/Head without Contrast IMPRESSION: Normal unenhanced CT scan of the brain. Electronically Signed: Avel Bennett MD at 19:29 EDT ,
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
[2022-12-28] MEDS: DiphenhydrAMINE 50 MG/ML Syringe 25 MG IV (18:02)
[2022-12-28] MEDS: Metoclopramide 10 MG/2 ML Vial IV (18:02)
[2022-12-28] MEDS: 0.9% Normal Saline 1,000 ML 999 ML IV (18:02)
--- NOTE | 2022-12-28 19:00 | CM.ED ---
Social Work Note Referral Source: case find Referral Reason: no PCP SW met with patient and introduced herself and role as [facility] [place]. Patient lying on hospital bed and agreeable to speak with SW with guest present. SW inquired about patient's insurance and current PCP. Patient verified insurance and reports no current PCP. SW provided patient with a list of local PCPs in network with patient's insurance and accepting new patients. Patient was receptive towards list and voiced no other needs. SW remains available if needs arise. Dorothea Barbour [employer], ANGELICA
[2022-12-28] MEDS: Ketorolac 15 MG/ML Vial IV (19:51)
[2022-12-28 20:35] VITALS: BP 136/86; PULSE 76; RESP 16; O2SAT 99
== END 2022-12-28 21:26 | disposition home or self-care (01) ==
PROVIDERS: Emergency Provider Student in an Organized Health Care Education/Training Program; Visit Provider Student in an Organized Health Care Education/Training Program
DX: S39.012A Strain of muscle, fascia and tendon of lower back, initial encounter (principal); S16.1XXA Strain of muscle, fascia and tendon at neck level, initial encounter; S06.0X0A Concussion without loss of consciousness, initial encounter; V87.7XXA Person injured in collision between other specified motor vehicles (traffic), initial encounter; F17.210 Nicotine dependence, cigarettes, uncomplicated; F41.9 Anxiety disorder, unspecified
CPT/HCPCS: 70450; 72125; 72131; 99283; J7030

== ENCOUNTER → 2024-01-03 | Outpatient (CLI) | payer MEDICAID, SELFPAY ==
--- NOTE | 2024-01-03 15:11 | NEURO ---
NCS and/or EMG Patient Report Ordering Doctor: Zackary Wood [facility] DATE OF SERVICE: 01/03/24 Aisha presents with complaints of numbness and weakness in both hands for the past several months. Electrodiagnostic findings: Left median motor nerve demonstrates normal distal latency, amplitude and conduction velocity. Right median motor nerve demonstrates normal distal latency and amplitude with reduction in conduction velocity. Ulnar motor responses are within normal limits bilaterally. Normal median and ulnar F?waves. Prolonged right median sensory latency at the wrist. Absent left median palmar response. Needle EMG testing was performed the upper limbs. All muscles tested showed no evidence of denervation with normal motor unit action potentials Electrodiagnostic impression: This is an abnormal study of the upper limbs 1. Electrodiagnostic findings suggestive of bilateral median mononeuropathy. This is consistent with a mild bilateral carpal tunnel syndrome. 2. No electrodiagnostic evidence is noted for ulnar neuropathy, including cubital tunnel syndrome. 3. No electrodiagnostic evidence noted for cervical radiculopathy. Multi Select Codes Neurology Neurology Interp Codes: 01219-25 Musc test done w/n test comp (interp) (2) and 87142-69 Nrv cndj test 13/> studies (interp)
== END | disposition home or self-care (01) ==
LOC: PSN 13:22
PROVIDERS: PCP Nurse Practitioner Family; Referring Provider Nurse Practitioner Family; Visit Provider Nurse Practitioner Family
DX: G56.03 Carpal tunnel syndrome, bilateral upper limbs (principal)
CPT/HCPCS: 95886; 95913

== ENCOUNTER → 2024-01-30 | Outpatient (CLI) | payer MEDICAID, SELFPAY ==
--- NOTE | 2024-01-30 16:37 | MRI_ITS ---
STUDY: MRI BRAIN WITH AND WITHOUT CONTRAST REASON FOR EXAM: Female, 28 years old. MIGRAINE TECHNIQUE: Standardized multiplanar fat and water weighted pulse sequences were obtained. 17ML IV CLARISCAN was administered for the contrast portion of the examination. COMPARISON: Head CT dated December 28, 2022 FINDINGS: Normal size of the ventricles and extra-axial spaces for the patient''s age. Normal white matter tracts of the supratentorial brain. There is no evidence for recent intracranial ischemia or other cause of cytotoxic edema on diffusion weighted imaging (DWI). There are no demyelinating plagues of the supratentorial brain, brainstem or cerebellum. There are no findings suspicious for multiple sclerosis (MS). There are no white matter hyperintensities. Specifically, there are no focal areas of white matter gliosis which are occasionally associated with vasospastic migraine headaches. Normal bilateral basal ganglia. Normal thalami. There is no extra-axial fluid accumulation. Normal flow voids within the major intracranial circulation suggesting patency by spin echo criteria. Normal venous enhancement. There is no enhancing intra-axial or extra-axial abnormality. No focal brain parenchymal lesions are present. There are no areas of abnormal enhancement of the brain parenchyma. No abnormal thickening or enhancement meninges or dura is demonstrated. No skull lesions are present. Normal sella turcica, pituitary gland, infundibular stalk, optic chiasm and hypothalamus. Normal tectal plate and pineal gland. Normal midbrain, jose and medulla. There is mild tonsillar ectopia, which is within normal limits, and without distortion of the brainstem. The findings are not consistent with an Arnold-Chiari type I malformation. Normal basal cisterns. Normal bilateral temporal bones. Normal bilateral internal auditory canals. No demonstrated orbital abnormality, within the constraints of a routine brain study. Normal visualized paranasal sinuses. Normal calvarium and skull base. Normal visualized soft tissue structures. Normal visualized upper cervical spine. MRI/Brain W/WO Contrast IMPRESSION: 1. Normal unenhanced and enhanced MRI of the brain. Electronically Signed: Del Hugo MD at 9:46 EDT ,
== END | disposition home or self-care (01) ==
LOC: MRI 16:20
PROVIDERS: PCP Nurse Practitioner Family; Referring Provider Nurse Practitioner Family; Visit Provider Nurse Practitioner Family
DX: G43.909 Migraine, unspecified, not intractable, without status migrainosus (principal)
CPT/HCPCS: 70553; A9575

== ENCOUNTER 2024-07-10 07:27 | Day surgery (SDC) | payer MEDICAID, SELFPAY ==
[2024-07-10] VITALS (9 sets, daily range): BP systolic 119–130; BP diastolic 72–79; PULSE 78–88; RESP 16; TEMP 36.1–36.9; O2SAT 98–100; BMI 31.5
[2024-07-10 07:49] LABS: Internal QC Validated? YES +Cl - CLEAR BKGD; Pregnancy, Urine Negative Negative
--- NOTE | 2024-07-10 08:27 | PRE.ANES_ITS ---
ASA Classification* ASA Classification ASA Classification: 2 Assessment & Plan Anesthesia* Anesthesia Assessment Anesthesia Assessment: Discussed sedation and/or anesthesia options, risks, benefits, and alternatives with patient/parents/legal guardian/POA. Questions invited. The patient/parents/legal guardian/POA seems to understand and agrees to proceed with anesthesia plan. Reviewed the physical assessment, medical history, allergy history and patient home medications list prior to surgery/procedure/anesthetic and documented any changes. Performed airway and anesthesia risk assessments. Anesthesia Type Anesthesia Type: General (General LMA as a backup) and MAC (General LMA as a backup.) History Source History Obtained from:: Patient and Chart Anesthesia Focused Assessment* Temperature: 98.5 F Pulse Rate: 80 Blood Pressure: 124/79 Respiratory Rate: 16 Pulse Ox: 99 Oxygen Delivery Method: Room Air Airway Assessment Mouth opens: >3 cm Mallampati Score: III Teeth Condition: Caps/Crowns (Patient has a upper right molar with a crown. It is tight.) Neck Range of motion (ROM): Full ROM Focused Labs Anesthesia Preop lab: CBC WBC 11.9 K/mm3 (4.4-11.0) H 02/15/18 05:30 8 RBC 3.45 M/mm3 (4.2-5.4) L 02/15/18 05:30 02/15/18 Hgb 10.5 g/dl (12.0-15.0) L 02/15/18 05:30 8 Hct 31.0 % (37-47) L 02/15/18 05:30 02/15/18 Plt Count 147 K/mm3 (150-450) L 02/15/18 05:30 02/15/18 CHEMISTRY Potassium 4.2 mmol/L (3.5-5.1) 10/28/17 12:20 10/28/17 Sodium 141 mmol/L (136-145) 10/28/17 12:20 10/28/17 BUN 7 mg/dL (7-18) 10/28/17 12:20 10/28/17 Creatinine 0.37 mg/dL (0.55-1.02) L 10/28/17 12:20 Glucose 79 mg/dL (74-106) 10/28/17 12:20 10/28/17 COAG HCG, Quant 31147 mIU/mL (<9 non-preg) H 07/27/17 16:42 Urine Test Negative Negative 07/10/24 07:35 07/10/24 Pre-Assessment Diagnosis/Proposed Procedure Planned Operative Procedure(s): BILAT ENDOSCOPIC CARPAL TUNNEL RELEASE Anesthesia History Anesthesia History - voucher examiner: Anesthesia History - voucher examiner Hx Hospitalization No 07/01/24 13:49 Any Problems With Anesthesia No 07/01/24 13:49 Cholinesterase deficiency No 07/01/24 13:49 You/Your Family Experience No 07/01/24 13:49 fever (hyperthermia) with Relationship Recent Exposure to Contagious No 07/10/24 07:47 Disease Does patient have nerve No 07/01/24 13:49 stimulator Patient instructed to have device shut off --Does patient have Pacemaker No 07/10/24 07:47 or ICD? When Was Last Pacemaker Check QUESTION #4 FULL TEXT: You/Your Family Experience fever (hyperthermia) with Anesthesia Last Oral Intake Last Oral intake: Last Oral Intake NPO since 00:00 07/10/24 07:47 Meds taken in AM with sips of No 07/10/24 07:47 water? Meds patient instructed to take am of surgery PONV PONV - voucher examiner: PONV - voucher examiner Female Yes 07/01/24 13:49 HX of Motion Sickness No 07/01/24 13:49 HX of N/V After Surgery No 07/01/24 13:49 Non-Smoker Yes 07/01/24 13:49 Duration of Surgery greater Yes 07/01/24 13:49 than 60 minutes Number of Risk Factors 3 07/01/24 13:49 PONV Score Moderate Risk 07/01/24 13:49 Height & Weight Height & Weight: Anesthesia: Height & Weight Height 5 ft 5 in 07/10/24 07:47 Weight: 86 kg 07/10/24 07:47 Body Mass Index (BMI) 31.5 07/10/24 07:47 Respiratory Assessment Respiratory Assessment - voucher examiner: Respiratory Tract Infection Hx - voucher examiner Hx Respiratory Tract Infection No 07/01/24 13:49 STOP Sleep Apnea STOP Sleep Apnea - voucher examiner: STOP Sleep Apnea - voucher examiner Hx Hypertension No 07/01/24 13:49 Hx Sleep Apnea No 07/01/24 13:49 CPAP BIPAP Do you snore loudly (louder No 07/01/24 13:49 than talking or can be heard Do you often feel tired/ No 07/01/24 13:49 fatigued/ sleepy during daytime? Has anyone observed you stop No 07/01/24 13:49 breathing during sleep? STOP Results Negative 07/01/24 13:49 QUESTION #5 FULL TEXT : Do you snore loudly (louder than talking or can be heard through closed doors)? 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 Specify any problems Hx of Preganancy in last 3 No 07/01/24 13:49 Months Nurse Filling Out Transfusion DSCHRIBER 07/01/24 13:49 & Questions: Date: 07/01/24 07/01/24 13:49 Time: 13:50 07/01/24 13:49 Patient unable to answer at this time (ie. confused, unrespo /Reproduction History /Reproductive History - voucher examiner: /Reproductive Hx- voucher examiner Hx Now No 07/01/24 13:49 Gestational Age (in weeks): EDC: Hx Hx Para Hx Section SAB No 07/01/24 13:49 Active Medications Active Medications: Current Medications Generic Name Dose Route Start Last Admin Trade Name Freq PRN Reason Stop Dose Admin Cefazolin Sodium 2 gm/ N/A 20 mls @ 400 mls/hr 07/10/24 10:45 IV 07/10/24 10:47 PREOP ONE Sodium Chloride 1,000 mls @ 15 mls/hr 07/10/24 08:10 IV 07/15/24 21:29 .Q48H VAL[place]INA Protocol PFSH Medical History Wears glasses Marijuana use Low iron Easy bruising Migraine headache Former smoker Bilateral carpal tunnel syndrome Home Medications ?Medication ?Instructions ?Recorded ?Last Taken ?Type ibuprofen 600 mg tablet 600 mg PO Q6H PRN PRN Pain # 30 02/16/18 Unknown Rx TABLETS naproxen 500 mg tablet (Naprosyn) 500 mg PO BID PRN pa in #20 tabs 12/27/22 Unknown Rx rimegepant 75 mg disintegrating 75 mg PO QODAY PRN alexa faye 07/01/24 Unknown History tablet (Nurtec ODT) headache Allergy/AdvReac Type Severity Reaction Status Date / Time No Known Allergies Allergy Verified 07/10/24 07:45 Family History Grandmother Diabetes Surgical History Hx of excision of mass delivery delivered Hx of appendectomy History of tonsillectomy Social History Smoking Status: Current some day smoker tobacco type: cigarettes alcohol intake: never substance use type: does not use caffeine: Yes frequency: 1-2 times per week seatbelt use: always do you feel safe at home: Yes additional social history: Single- [employer] Review of Systems (Anesthesia) ROS Narrative System reviewed and no additional complaints, except as documented.
--- NOTE | 2024-07-10 09:37 | HP.PCM_ITS ---
HPI - General HPI Narrative NAZANIN JONES, is a 29 F who presents for bilat ECTRs. no change to h and p. rab post op instructions discussed. ok to proceed. both wrists marked. MR#: [id number] Acct: [id number] Name: NAZANIN JONES Rep #: [id number] : 1995 Provider: Dr. Thomas Kamara MD Age/Sex: 28/F Location: [facility] [place].CON Status: Signed Intake Vital Signs 02/19/2416:37 05/21/2409:18 Height 5 ft 4 in 5 ft 4 in Weight: 183 lb 6 oz 182 lb BMI 31.4 31.2 BP 136/70 H Blood Pressure Location Lt brachial Position Sitting Respiration 15 Pulse 81 Pulse Source NIBP Temp 98.7 F Temp Source Temporal Pulse Oximetry (%) 98 Oxygen Delivery Method room air Intake Visit Reasons: BILATERAL HANDS Chief Complaint: bilateral hands Is patient in pain?: Yes (bilateral hands ) Pain scale (1-10): 3 Allergies No Known Allergies Allergy (Verified 05/21/24 09:20) Medications ?Medication ?Instructions ?Recorded ?Confirmed ?Type ibuprofen 600 mg tablet 600 mg PO Q6H PRN PRN Pain #30 02/16/18 Rx TABLETS naproxen 500 mg tablet (Naprosyn) 500 mg PO BID PRN pain #20 tabs 12/27/22 Rx PFSH Medical History Bilateral carpal tunnel syndrome Anxiety Surgical History delivery delivered Hx of appendectomy History of tonsillectomy Family History Grandmother Diabetes Social History Smoking Status: Current some day smoker tobacco type: cigarettes alcohol intake: never substance use type: does not use caffeine: Yes frequency: 1-2 times per week seatbelt use: always do you feel safe at home: Yes additional social history: Single- [employer] HPI BILATERAL HANDS Details: This documentation accurately reflects the service provided and the decisions made by me, Dr. Thomas Kamara MD 05/21/24 0845. Part of today?s visit was documented by [ ], acting as scribe. NAZANIN JONES is a 28 year old F here today for bilateral carpal tunnel syndrome 1.5 yrs. RHD. worse thumb index and middle fingers. trying night splinting not working. 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 worse at night. Supplemental Info [facility]monary Services/Neurology [address] [place] [address] MR#: [id number] Acct: [id number] Name: NAZANIN JONES Rep #: [id number] : 1995 28 From: Jessica Winters MD Referring Dr: Zackary Wood [facility] [employer]ARR[employer] SUPERVISOR-C Status: REG CLI Location: PSN Date: 01/03/24 Sex: F C NCS and/or EMG Patient Report Ordering Doctor: Zackary Wood [facility] DATE OF SERVICE: 01/03/24 Nazanin presents with complaints of numbness and weakness in both hands for the past several months. Electrodiagnostic findings: Left median motor nerve demonstrates normal distal latency, amplitude and conduction velocity. Right median motor nerve demonstrates normal distal latency and amplitude with reduction in conduction velocity. Ulnar motor responses are within normal limits bilaterally. Normal median and ulnar F?waves. Prolonged right median sensory latency at the wrist. Absent left median palmar response. Needle EMG testing was performed the upper limbs. All muscles tested showed no evidence of denervation with normal motor unit action potentials Electrodiagnostic impression: This is an abnormal study of the upper limbs 1. Electrodiagnostic findings suggestive of bilateral median mononeuropathy. This is consistent with a mild bilateral carpal tunnel syndrome. 2. No electrodiagnostic evidence is noted for ulnar neuropathy, including cubital tunnel syndrome. 3. No electrodiagnostic evidence noted for cervical radiculopathy. Multi Select Codes Neurology Neurology Interp Codes: 75769-08 Musc test done w/n test comp (interp) (2) and 27715-23 Nrv cndj test 13/> studies (interp) Coding Level of Care Code Off vis,new,level 3 Diagnoses Bilateral carpal tunnel syndrome G56.03 Assessment and Plan Assessment and Plan (1) Bilateral carpal tunnel syndrome: Status: Acute Plan: 28 yr F with bilateral median mononeuropathy. This is consistent with a mild bilateral carpal tunnel syndrome. Patient counseled on the diagnosis prognosis different treatment options available include but not limited to rest ice anti- inflammatories active modification stretching nerve gliding exercises cortisone injections night splinting as well as open or endoscopic carpal tunnel release. The patient would prefer to proceed with surgery for made more definitive solution. They prefer to proceed with bilateral endoscopic carpal tunnel release. Open release may have higher rates of pain pillar pain and wound healing problems but potentially lower risk of incomplete release versus endoscopic carpal tunnel release possibly early return to function less pain and early return to work. That being said carpal tunnel syndrome can get worse or more permanent with time. The patient would like to proceed with and signed the consent for bilateral endoscopic carpal tunnel release. Pros and cons risks and benefits were discussed with the patient including but not limited to infection, pain, stiffness, bleeding, damage to surrounding structures, neurovascular injury, recurrence or retear, failure or wear of hardware or fixation, instability, fracture, deep vein thrombosis and pulmonary embolism, anesthetic risks, , patient dissatisfaction, need for further surgery and other risks. Patient understood and wished to proceed with surgery, and signed the informed consent documentation. Ortho Exam General General: Yes no acute distress Neurologic: Yes alert and Yes oriented x3 Psychologic: Yes reasonable and appropriate Right Wrist/Hand Skin/Wound: Yes CDI, No Swelling, No Ecchymosis, Yes nail intact and Yes capillary refill normal Right Wrist: Yes ROM-Extension 0-60, ROM-Flexion 0-80, ROM-Pronation 0-80, ROM- Supination 0-90, Durken's Test and Phalen's; No Tinel's (neg elbow and wrist), Thenar Atrophy or Hypothenar Atrophy Motor: EPL: 5, FDP-2: 5, 1st Dorsal Interosseous: 5 and APB: 5 Sensation: Radial: I, Ulnar: I and Median: I Left Wrist/Hand Skin/Wound: Yes CDI, No Swelling, No Ecchymosis, Yes nail intact, Yes capillary refill normal and No erythema Left Wrist: Yes ROM-Extension 0-60, Yes ROM-Flexion 0-80, Yes ROM-Pronation 0- 80, Yes ROM-Supination 0-90, Yes Durken's Test, Yes Tinel's (neg elbow and wrist) and Yes Phalen's; No Thenar Atrophy and No Hypothenar Atrophy Motor: EPL: 5, FDP-2: 5, 1st Dorsal Interosseous: 5 and APB: 5 Sensation: Radial: I, Ulnar: I and Median: I PFSH Medical History Wears glasses Marijuana use Low iron Easy bruising Migraine headache Former smoker Bilateral carpal tunnel syndrome Home Medications ?Medication ?Instructions ?Recorded ?Last Taken ?Type ibuprofen 600 mg tablet 600 mg PO Q6H PRN PRN Pain # 30 02/16/18 Unknown Rx TABLETS naproxen 500 mg tablet (Naprosyn) 500 mg PO BID PRN pa in #20 tabs 12/27/22 Unknown Rx rimegepant 75 mg disintegrating 75 mg PO QODAY PRN alexa faye 07/01/24 Unknown History tablet (Nurtec ODT) headache Allergy/AdvReac Type Severity Reaction Status Date / Time No Known Allergies Allergy Verified 07/10/24 07:45 Family History Grandmother Diabetes Surgical History Hx of excision of mass delivery delivered Hx of appendectomy History of tonsillectomy Social History Smoking Status: Current some day smoker tobacco type: cigarettes alcohol intake: never substance use type: does not use caffeine: Yes frequency: 1-2 times per week seatbelt use: always do you feel safe at home: Yes additional social history: Single- [employer] Vital Signs Vital Signs Vital Signs: 07/10/24 07:47 07/10/24 07:47 07/10/24 08:30 Temperature 98.5 F 98.5 F Temperature Source Temporal Pulse Rate 80 80 Respiratory Rate 16 16 Respiratory Pattern Normal Blood Pressure 124/79 H 124/79 H Blood Pressure Mean 94 Blood Pressure Source Monitor Blood Pressure Position Semi-Fowlers Blood Pressure Location Left Arm Pulse Ox 99 99 Oxygen Delivery Method Room Air Room Air Weight Weight: 189 lb 9.561 oz Body Mass Index (BMI) 31.5 Results Lab / Micro Data Labs: Laboratory Results - last 24 hr 07/10/24 07:35: Urine Test Negative
[2024-07-10] MEDS: Cefazolin 2 GM in Syringe IV (09:55)
[2024-07-10] MEDS: Bupivacaine 0.25% 30 ML Vial (10:06)
--- NOTE | 2024-07-10 10:35 | OP.PCM_ITS ---
Problems Associated Problem List Diagnoses (1) Bilateral carpal tunnel syndrome: Procedures Musculoskeletal 20xxx-29xxx: Other Procedure See Report Operative Report (Standard) Operative Information Date of Procedure: 07/10/24 Pre-Operative Diagnosis: Bilateral carpal tunnel syndrome Post-Operative Diagnosis: Same Surgery/Procedure Performed: Bilateral endoscopic carpal tunnel release hand stamper: Yes Selvage Machine Operator: colton Tasks completed by finance assistant: Retracting Additional personal injury legal assistant?: No Type of Anesthesia: Local MAC RN Documented Start/Stop Times: Operation Date: 07/10/24 09:00 Case Time Into Pre-Op 07/10/24 07:34 Out of Pre-Op 07/10/24 09:30 Anesthesia Start 07/10/24 09:47 Into Room 07/10/24 09:47 Procedure Start 07/10/24 10:06 Procedure End 07/10/24 10:32 Procedure Start Time: 10:06 Procedure Stop Time: 10:32 Select all DRAINS/GRAFTS/IMPLANTS that apply: None Estimated Blood Loss: 10 Specimen collected: No Description of surgery: Patient brought to the operating room theater. Placed upon on the table. 2g iv ancef before the start of the case. Local/MAC induced by the anesthetic team. Patient placed supine on the table all bony prominences padded. SCDs on the legs. Hand table used both sides. Tourniquet applied properly padded to both upper extremity. Upper extremity prepped and draped in the usual sterile fashion with chlorhexidine-based prep solution allowing over 3 minutes drying time prior to draping. Preoperative timeout performed to confirm the site patient and the surgery. Did the same procedure on both sides. Began by elevating the limb and inflated the tourniquet to 250 mmHg. I used the Arthex center line endoscopic carpal tunnel kit / technique. I made a transverse 2 cm incision in line with the? transverse wrist crease.? This was in line with the fourth digit.? I carried the dissection down through skin and subcutaneous tissue achieved meticulous hemostasis. Just ulnar to palmaris tendon.? I incised the antebrachial fascia.? I passed sequential dilators into the carpal tunnel along the radial border of the Guyon's canal aiming for the fourth digit with the hand in extension.? I used a synovial elevator to identify the transverse fibers of the transverse carpal tunnel ligament.? Passed the scope into the carpal tunnel. Once I had identified the full proximal and distal extent of the ligament I fully released the ligament under direct visualization by deploying the blade and slowly withdrawing the scope made sequential passes until I no longer felt tension as well as the entire extent of the ligament was released under direct visualization.? Sounded the tunnel with reynoso tenotomy scissors, complete release, no bands. Arthroscope light was more visible through the skin. Release the forearm fascia also. Pictures taken and saved. Wounds thoroughly irrigated.? 2cc 0.25% bupivicaine for local anesthesia (4 total). Tourniquet let down prior to end of the case and meticulous hemostasis achieved.? Thorough irrigation.? ? Incisions closed with 3-0 vicryl and dermabond and 3-0 moncryl for skin. ?Then adaptic 4x4 gauze and cecelia wrap loosely wrapped. Patient woken up,? transferred off the operating room table and taken to postanesthetic care unit in stable condition. All sponge needle instrument counts were correct no complications.?Plan for the patient to be discharged home according to day surgery criteria when they are comfortable. Follow-up in the office in 2 days time. Gentle ROM hand and elbow no heavy lifting. cpt 83110 x2 Surgical Findings: as above Complications Complications: No Admit VTE Documentation VTE Present on Admission: No VTE Mechan Device Prophylaxis: SCD's VTE Pharm Prophylaxis ordered?: No Reason prophylaxis not ordered: Treatment Not Indicated
--- NOTE | 2024-07-10 10:38 | EX.PCM.DISCH ---
Discharge Instructions Diet Discharge Diet: No restrictions Activity Lifting Restrictions: no heavy lifting or gripping Keep extremity elevated above heart level: Operative Extremity Additional Activity Instructions:: wear wrist braces 2 weeks Dressing / Incision Call your doctor if your incision/area has: Continuous Slow Oozing, Sudden Increased Bleeding, Increased Pain/ Swelling, Increased Redness, Foul Smelling Discharge and Swelling at the incision site Call your doctor if you observe: Fever of 101 or Higher, Coldness, Increased Pain and Numbness or Tingling Change Dressing in: leave in place till F/U Cleanse incision/area with: Do not get Incision Wet Additional Dressing/Incision Instructions:: ok to remove cecelia wrap / gauze after 1 day, and cover with bandage Follow Up Care Please Follow Up With: Thomas Kamara MD When: within 2 weeks Test Results: Test results from this visit will be discussed in further detail at your follow-up appointment, if applicable. Discharge Plan Admission Attending Provider: Thomas Kamara Primary Care Provider: Zackary Wood Instructions Print Language: Luxembourger Discharge Orders/Prescriptions Prescriptions: No Action ibuprofen 600 MG tablet 600 mg PO Q6H PRN PRN (Reason: Pain) Qty: 30 0RF naproxen [Naprosyn] 500 mg tablet 500 mg PO BID PRN (Reason: pain) Qty: 20 0RF Nurtec ODT 75 mg tablet,disintegrating 75 mg PO QODAY PRN (Reason: migraine headache) Referrals / Follow Up: Zackary Wood, RESPIRATORY CLINICIAN-C [Primary Care Provider] - Thomas Kamara MD [Med Staff - Active Staff] - Disposition Disposition (needs filled in before D/C Order can be placed): Home, Self Care
--- NOTE | 2024-07-10 10:43 | PCM.POST.ANE ---
Anesthesia: Postop Eval I Current Vital Signs Temperature: 97 F Pulse Rate: 86 Blood Pressure: 130/79 Respiratory Rate: 16 Pulse Ox: 98 Oxygen Delivery Method: Room Air Assessment Airway patent: Yes Spontaneous unlabored respirations: Yes Mental status: Awake and Calm nausea: No Vomiting: No Anesthesia Complication: No Fluid Hydration Crystalloid volume administer (ml): 800 Total IV fluid infused: 800 Progress Note Anesthesia document: Postop Eval 1 completed: Yes
--- NOTE | 2024-07-10 11:45 | POSTOPAN2_ITS ---
Anesthesia Postop Eval I Sum Postop Eval Completion status Anesthesia document: Postop Eval 1 completed: Yes Anesthesia Postop Eval I Summary Anesthesia Postop Eval I Summary: Anesthesia Postop Eval I: Assessment Summary Airway patent Yes 07/10/24 10:44 CODING [email or web address].[email or web address] Spontaneous unlabored Yes 07/10/24 10:44 CODING CONSULTANT.JRIV respirations Mental status Awake,Calm 07/10/24 10:44 CODING [email or web address].JRIV nausea No 07/10/24 10:44 CODING [email or web address].JRIV Vomiting No 07/10/24 10:44 CODING [email or web address].JRIV Anesthesia Postop Eval I: Fluid Summary Crystalloid volume administer 800 07/10/24 10:44 CODING CONSULTANT.JRIV (ml) Colloids volume administered ( ml) Blood Product volume administered (ml) Total IV fluid infused 800 07/10/24 10:44 CODING [email or web address].JRIV Anesthesia Postop Eval I: Summary Notes Anesthesia Complication No 07/10/24 10:44 CODING [email or web address].JRIV Anesthesia Complication Comment: Post-operative progress note Anesthesia: Postop Eval II Evaluation Mental status: Awake and Calm Pain Level: 1 nausea: No Vomiting: No
--- NOTE | 2024-07-10 11:45 | PCM.POSTANE2 ---
Anesthesia Postop Eval I Sum Postop Eval Completion status Anesthesia document: Postop Eval 1 completed: Yes Anesthesia Postop Eval I Summary Anesthesia Postop Eval I Summary: Anesthesia Postop Eval I: Assessment Summary Airway patent Yes 07/10/24 10:44 VALIDATION ARCHITECT.[email or web address] Spontaneous unlabored Yes 07/10/24 10:44 VALIDATION ARCHITECT.JRIV respirations Mental status Awake,Calm 07/10/24 10:44 VALIDATION ARCHITECT.JRIV nausea No 07/10/24 10:44 VALIDATION ARCHITECT.JRIV Vomiting No 07/10/24 10:44 VALIDATION ARCHITECT.JRIV Anesthesia Postop Eval I: Fluid Summary Crystalloid volume administer 800 07/10/24 10:44 VALIDATION ARCHITECT.JRIV (ml) Colloids volume administered ( ml) Blood Product volume administered (ml) Total IV fluid infused 800 07/10/24 10:44 VALIDATION ARCHITECT.JRIV Anesthesia Postop Eval I: Summary Notes Anesthesia Complication No 07/10/24 10:44 VALIDATION ARCHITECT.JRIV Anesthesia Complication Comment: Post-operative progress note Anesthesia: Postop Eval II Evaluation Mental status: Awake and Calm Pain Level: 1 nausea: No Vomiting: No
[2024-07-10] MEDS: HYDROcodone Bitartrate/Apap 5/325 Tablet PO (12:21)
== END 2024-07-10 12:33 | disposition home or self-care (01) ==
LOC: SDC 07:28 → AC 07:30
PROVIDERS: Anesthesiology; PCP Nurse Practitioner Family; Referring Provider Orthopaedic Surgery Sports Medicine; Visit Provider Orthopaedic Surgery Sports Medicine
PROC: (CPT 29848; principal; 2024-07-10 08:45)
DX: G56.03 Carpal tunnel syndrome, bilateral upper limbs (principal); F17.210 Nicotine dependence, cigarettes, uncomplicated
CPT/HCPCS: 29848; 01810; 81025; J2405

== ENCOUNTER 2024-10-15 14:40 | Emergency (ER) | payer MEDICAID, SELFPAY ==
[2024-10-15 14:40] VITALS: BP 142/81; PULSE 78; RESP 14; TEMP 36.8; O2SAT 100; BMI 30.2
--- NOTE | 2024-10-15 15:00 | RAD_ITS ---
PROCEDURE: ANKLE MIN 3 VIEWS 10/15/2024 REASON FOR EXAM: ANKLE SWELLING/PAIN Recent injury. TECHNIQUE: 3 views of the right ankle COMPARISON: None FINDINGS: Bones: No fracture is seen. Joints: Normal alignment. Mortise appears intact. No effusion. Soft tissues: Soft tissue swelling. Other: RAD/Ankle min 3 Views IMPRESSION: Lateral soft tissue swelling. No fracture or dislocation is seen. Reading Location: [facility]-
--- NOTE | 2024-10-15 15:29 | EDS_ITS ---
HPI History of Present Illness Chief Complaint: Lower Extremity Injury Informant: patient Narrative Narrative: Patient is a 29-year-old female denies a significant past medical history presenting with right ankle pain. She was playing with her son yesterday went to jump up to catch a baseball. When she came down she heard a crack immediately had pain in her right ankle. She has swelling over the lateral aspect of her right ankle today. Denies any prior injuries. States her toes feel cold today since this happened. She came in because she was concerned she may have broken something. She has been able to walk on it but is very painful and she is limping. Woke up with a headache so she took Excedrin Migraine this morning. No other complaints or concerns reported at this time. No other injuries reported. Denies any prior history of any ankle issues. [facility] Medical History Wears glasses Marijuana use Low iron Easy bruising Migraine headache Former smoker Bilateral carpal tunnel syndrome Home Medications ?Medication ?Instructions ?Recorded ?Last Taken ?Type rimegepant 75 mg disintegrating 75 mg PO QODAY PRN alexa faye 07/01/24 Unknown History tablet (Nurtec ODT) headache ibuprofen 600 mg tablet 600 mg PO Q6H PRN PRN Pain # 20 10/15/24 Unknown Rx TABLETS ibuprofen 600 mg tablet 600 mg PO Q6H PRN pain #20 t abs 10/15/24 Unknown Rx Allergy/AdvReac Type Severity Reaction Status Date / Time No Known Allergies Allergy Verified 10/15/24 14:43 Family History Grandmother Diabetes Surgical History S/p bilateral carpal tunnel release Hx of excision of mass delivery delivered Hx of appendectomy History of tonsillectomy Social History Smoking Status: Current some day smoker tobacco type: cigarettes alcohol intake: never substance use type: does not use caffeine: Yes frequency: 1-2 times per week seatbelt use: always do you feel safe at home: Yes additional social history: Single- [employer] ROS ROS ED Constitutional Constitutional ED: Denies chills or fever(s) Musculoskeletal Musculoskeletal: Reports other Details: Right ankle pain and swelling Integumentary Denies Abrasions or rash Neurologic Neurologic: Reports paresthesias RLE (Toes); Denies weakness Hematologic/Lymphatic Hematologic/Lymphatic: Denies easy bleeding or easy bruising EXAM Physical Exam Const Vital Signs: 10/15/24 14:40 10/15/24 16:00 Temperature 98.2 F 98 F Temperature Source Oral Pulse Rate 78 81 Respiratory Rate 14 14 Blood Pressure 142/81 H 138/61 H Blood Pressure Mean 101 86 Pulse Ox 100 97 Oxygen Delivery Method Room Air Positive well nourished and well developed General Appearance ED: well developed and NAD Neck full ROM Chest Wall inspection of chest normal Resp normal respiratory effort Cardio regular rate and regular rhythm Cardio Narrative: 2+ DP pulses Extremity Extremity Narrative: No obvious deformity. Normal right knee. No fibular head tenderness present. Normal Lynn's test on the right. No pinpoint tenderness over the Achilles tendon. soft tissue swelling noted most pronounced of the right lateral ankle around the lateral malleolus. Mild tenderness palpation posterior to both the lateral and medial malleolus. No significant tenderness palpation/pinpoint bony tenderness over the metatarsals. No short arc range of motion pain of the ankle. Patient able to wiggle her toes. Neuro oriented x3, moves all extremities and no sensory deficits noted Neuro Narrative: Sensation intact to light touch in the toes. Sensorium / Orientation: alert Skin no wounds MDM MDM MDM Narrative Medical decision making narrative: Patient evaluated for right ankle pain after injury yesterday. Protocol x-ray obtained reviewed by myself as well as radiology. There is soft tissue swelling but no acute fracture. Patient will treat as a sprain. Differential includes is not limited to ankle sprain, ankle fracture dislocation. She does not have bony tenderness over the metatarsals nor suspicion for foot fracture/metatarsal fracture. Patient given air stirrup and crutches. 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 And I will be given a prescription for Motrin 600 mg. Given return precautions. Courage follow-up with her orthopedics. Discussed RICE therapy. Discharged home in stable condition. Radiography Diagnostic Testing: Clinical Impression(s) from Imaging Studies Ankle X-Ray 10/15/24 15:00 IMPRESSION: Lateral soft tissue swelling. No fracture or dislocation is seen. Reading Location: [place] [address] Discharge Plan Triage Chief Complaint: Lower Extremity Injury ED Provider: Meaghan Foster Dx/Rx/DC Orders Clinical Impression: Right ankle sprain Instructions: ED Ankle Sprain (Adult) Prescriptions: New ibuprofen 600 mg tablet 600 mg PO Q6H PRN (Reason: pain) Qty: 20 0RF Continued ibuprofen 600 MG tablet 600 mg PO Q6H PRN PRN (Reason: Pain) Qty: 20 0RF Discontinued naproxen [Naprosyn] 500 mg tablet 500 mg PO BID PRN (Reason: pain) Qty: 20 0RF No Action Nurtec ODT 75 mg tablet,disintegrating 75 mg PO QODAY PRN (Reason: migraine headache) Stand Alone Forms: ED Work / School Excuse Primary Care Provider: Zackary Wood Referrals: Thomas Kamara MD [Med Staff - Active Staff] - Zackary Wood, ADJUNCT PROFESSOR OF [employer] [Primary Care Provider] - Activity Restrictions/Additional Instructions: Ice and elevate ankle is much as possible. Wear air stirrup and use crutches as needed. You may also take Tylenol. Print Language: Romanian Disposition Disposition: Home, Self Care Discharge Date/Time: 10/15/24 16:03
[2024-10-15 16:00] VITALS: BP 138/61; PULSE 81; RESP 14; TEMP 36.6; O2SAT 97
== END 2024-10-15 16:03 | disposition home or self-care (01) ==
PROVIDERS: Emergency Provider Emergency Medicine; PCP Nurse Practitioner Family; Visit Provider Emergency Medicine
DX: S93.401A Sprain of unspecified ligament of right ankle, initial encounter (principal); F17.210 Nicotine dependence, cigarettes, uncomplicated; R20.2 Paresthesia of skin; Y93.64 Activity, baseball
CPT/HCPCS: 73610; 99283

== ENCOUNTER 2024-11-22 23:53 | Emergency (ER) | payer MEDICAID, SELFPAY ==
[2024-11-22 23:54] VITALS: BP 130/82; PULSE 118; RESP 20; TEMP 37.9; O2SAT 98; BMI 30.5
--- OUTSIDE RECORDS SUMMARY | 2024-11-23 00:12 | XMS RPT_ITS | CCD ---
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 use Low iron Easy bruising Migraine headache Former smoker Bilateral carpal tunnel syndrome Surgical History S/p bilateral carpal tunnel release Hx of excision of mass delivery delivered Hx of appendectomy History of tonsillectomy Family History Grandmother Diabetes Social History Smoking Status: Current some day smoker tobacco type: cigarettes alcohol intake: never substance use type: does not use caffeine: Yes frequency: 1-2 times per week seatbelt use: always do you feel safe at home: Yes additional social history: Single- [employer] HPI BL WRIST Details: This documentation accurately reflects the service provided and the decisions made by me, Dr. Thomas Kamara MD 08/20/24 0903. Part of today???s visit was documented by [ ], acting as scribe. AISHA HILL is a 29 year old F here today for 6 weeks follow-up bilateral endoscopic carpal tunnel release. Doing well numbness is improved. Occasionally gets a little bit of soreness and swelling at the base of the left palm other than that feels comfortable to return back to work. Coding Level of Care Code Global Post Op Diagnoses Bilateral carpal tunnel syndrome G56.03 Assessment and Plan Assessment and Plan (1) Bilateral carpal tunnel syndrome: Status: Acute Plan: AISHA HILL is a 29 year old F here today for 6 weeks follow-up bilateral endoscopic carpal tunnel release. Doing well numbness is improved patient may return to activities as tolerated wrote a work note and follow-up as needed. Clinical Quality Measures Falls Risk Screening/Assistive Devices Have you fallen in the past year?: No Ortho Exam General General: Yes no acute distress Neurologic: Yes alert and Yes oriented x3 Psychologic: Yes reasonable and appropriate Right Wrist/Hand Skin/Wound: Yes CDI, Yes healed, No Swelling (mild), No Ecchymosis (v mild), Yes nail intact and Yes capillary refill normal Motor: EPL: 5, FDP-2: 5, 1st Dorsal Interosseous: 5 and APB: 5 Sensation: Radial: I, Ulnar: I and Median: I Left Wrist/Hand Skin/Wound: Yes CDI, Yes healed, No Swelling (mild), No Ecchymosis (v mild), Yes nail intact, Yes capillary refill normal and No erythema Motor: EPL: 5, FDP-2: 5, 1st Dorsal Interosseous: 5 and APB: 5 Sensation: Radial: I, Ulnar: I and Median: I 08/20/24 1133 Date Thomas Kamara MD Cosigner Signature: Date (if applicable) CC: Normal Orthopedic Visit Reporton Orthopedic Visit Report [facility] [facility] [address] [place] [address] OFFICE VISIT Date of Service: 07/23/24 MR#: [id number] Acct: [id number] Name: AISHA HILL Rep #: [id number] : 1995 Provider: Dr. Thomas mohamud MD Age/Sex: 29/F Location: [facility].CON Status: Signed Intake Vital Signs 05/21/24 09:18 07/10/24 07:47 Height 5 ft 4 in 5 ft 5 in Intake Visit Reasons: bilateral wrist Chief Complaint: 2 week post-op bilateral wrist Is patient in pain?: Yes Allergies No Known Allergies Allergy (Verified 07/23/24 13:05) Medications ???Medication ???Instructions ???Recorded ???Confirmed ???Type ibuprofen 600 mg tablet 600 mg PO Q6H PRN PRN Pain #30 07/23/24 Rx TABLETS naproxen 500 mg tablet (Naprosyn) 500 mg PO BID PRN pain #20 tabs 0 12/27/22 07/23/24 Rx rimegepant 75 mg disintegrating 75 mg PO QODAY PRN migraine 07/23/24 History tablet (Nurtec ODT) headache Have you fallen in the past year?: No PFSH Medical History Wears glasses Marijuana use Low iron Easy bruising Migraine headache Former smoker Bilateral carpal tunnel syndrome Surgical History S/p bilateral carpal tunnel release Hx of excision of mass delivery delivered Hx of appendectomy History of tonsillectomy Family History Grandmother Diabetes Social History Smoking Status: Current some day smoker tobacco type: cigarettes alcohol intake: never substance use type: does not use caffeine: Yes frequency: 1-2 times per week seatbelt use: always do you feel safe at home: Yes additional social history: Single- [employer] HPI bilateral wrist Details: This documentation accurately reflects the service provided and the decisions made by me, Dr. Thomas Kamara MD 07/23/24 1685. Part of today???s visit was documented by [ ], acting as scribe. AISHA HILL is a 29 year old F here today for 2 weeks follow-up bilateral scopic carpal tunnel release. The patient is doing well little bit of soreness and swelling in the left side. Slowly improving. Using the brace is not doing any heavy lifting. Ortho Exam General General: Yes no acute distress Neurologic: Yes alert and Yes oriented x3 Psychologic: Yes reasonable and appropriate Right Wrist/Hand Skin/Wound: Yes CDI, Yes healed, Yes Swelling (mild), No Ecchymosis (v mild), Yes nail intact and Yes capillary refill normal Motor: EPL: 4, FDP-2: 4, 1st Dorsal Interosseous: 4 and APB: 4 Sensation: Radial: I, Ulnar: I and Median: I Left Wrist/Hand Skin/Wound: Yes CDI, Yes healed, Yes Swelling (mild), No Ecchymosis (v mild), Yes nail intact, Yes capillary refill normal and No erythema Motor: EPL: 4, FDP-2: 4, 1st Dorsal Interosseous: 4 and APB: 4 Sensation: Radial: I, Ulnar: I and Median: I WRIST: a bit irritated at the incision, no warmth or drainage. Coding Level of Care Code Global Post Op Diagnoses Bilateral carpal tunnel syndrome G56.03 Assessment and Plan Assessment and Plan (1) Bilateral carpal tunnel syndrome: Status: Acute Plan: 29-year-old female 2 weeks follow-up bilateral endoscopic carpal tunnel release. Incisions healed, a bit irritated on the left. Recommend to keep them clean, dry, ok to shower over top, no heavy lifting or gripping for another 4 weeks and follow-up at that point in the office they understood no further questions or concerns. Clinical Quality Measures Falls Risk Screening/Assistive Devices Have you fallen in the past year?: No 07/23/24 1313 Date Thomas Rudolph Signature: Date (if applicable) CC: Normal Orthopedic Visit Reporton Orthopedic Visit Report [facility] [address] [place] [address] [address] [place] [address] OFFICE VISIT Date of Service: 07/12/24 MR#: [id number] Acct: [id number] Name: AISHA HILL Rep #: [id number] : 1995 Provider: Dr. Thomas mohamud MD Age/Sex: 29/F Location: [facility].CON Status: Signed Intake Vital Signs 05/21/24 09:18 07/10/24 07:47 Height 5 ft 4 in 5 ft 5 in Intake Visit Reasons: bilateral wrist Chief Complaint: Post op bilateral wrist Is patient in pain?: Yes (BL hands) Pain scale (1-10): 5 Allergies No Known Allergies Allergy (Verified 07/12/24 13:09) Medications ???Medication ???Instructions ???Recorded ???Confirmed ???Type ibuprofen 600 mg tablet 600 mg PO Q6H PRN PRN Pain #30 07/12/24 Rx TABLETS naproxen 500 mg tablet (Naprosyn) 500 mg PO BID PRN pain #20 tabs 0 12/27/22 07/12/24 Rx rimegepant 75 mg disintegrating 75 mg PO QODAY PRN migraine 07/12/24 History tablet (Nurtec ODT) headache PFSH Medical History Wears glasses Marijuana use Low iron Easy bruising Migraine headache Former smoker Bilateral carpal tunnel syndrome Surgical History S/p bilateral carpal tunnel release Hx of excision of mass delivery delivered Hx of appendectomy History of tonsillectomy Family History Grandmother Diabetes Social History Smoking Status: Current some day smoker tobacco type: cigarettes alcohol intake: never substance use type: does not use caffeine: Yes frequency: 1-2 times per week seatbelt use: always do you feel safe at home: Yes additional social history: Single- [employer] HPI bilateral wrist Details: This documentation accurately reflects the service provided and the decisions made by me, Dr. Thomas Kamara MD 07/12/24 4480. Part of today???s visit was documented by [ ], acting as scribe. AISHA HILL is a 29 year old F here today for postop day 2 bilateral endoscopic carpal tunnel release. Patient doing well no acute concerns sensation gradually improving. The swelling is improving. Coding Level of Care Code Global Post Op Diagnoses Bilateral carpal tunnel syndrome G56.03 Assessment and Plan Assessment and Plan (1) Bilateral carpal tunnel syndrome: Status: Acute Plan: AISHA HILL is a 29 year old F here today for postop day 2 bilateral endoscopic carpal tunnel release. Recommend keep the incisions clean and dry change dressing every 1 to 2 days. New steri strips and mepilex dressings. Limit wrist range of motion recommend wearing the braces for the first 2 weeks postoperatively okay for gentle hand and fingers range of motion and follow-up in the office in 2 weeks time no heavy lifting or gripping. Ortho Exam General General: Yes no acute distress Neurologic: Yes alert and Yes oriented x3 Psychologic: Yes reasonable and appropriate Right Wrist/Hand Skin/Wound: Yes CDI, Yes healing, Yes Swelling, Yes Ecchymosis (v mild), Yes nail intact and Yes capillary refill normal Motor: EPL: 4, FDP-2: 4, 1st Dorsal Interosseous: 4 and APB: 4 Sensation: Radial: I, Ulnar: I and Median: I Left Wrist/Hand Skin/Wound: Yes CDI, Yes healing, Yes Swelling, Yes Ecchymosis (v mild), Yes nail intact, Yes capillary refill normal and No erythema Motor: EPL: 4, FDP-2: 4, 1st Dorsal Interosseous: 4 and APB: 4 Sensation: Radial: I, Ulnar: I and Median: I 07/12/24 1322 Date [facility]: Date (if applicable) CC: Normal Discharge Instructionon 06-22 Discharge Instruction [facility] Medical Records Department [address] [place] [address] Instructions for Home/Discharge Instructions 07/10/24 1038 MR#: [id number] Acct: [id number] Name: AISHA HILL Rep #: [id number] : 1995 29 From: Thomas Kamara MD PCP: Zackary Wood ELEVATOR STARTER-C Status:REG [facility] Discharge Instructions Diet Discharge Diet: No restrictions Activity Lifting Restrictions: no heavy lifting or gripping Keep extremity elevated above heart level: Operative Extremity Additional Activity Instructions:: wear wrist braces 2 weeks Dressing / Incision Call your doctor if your incision/area has: Continuous Slow Oozing, Sudden Increased Bleeding, Increased Pain/ Swelling, Increased Redness, Foul Smelling Discharge and Swelling at the incision site Call your doctor if you observe: Fever of 101 or Higher, Coldness, Increased Pain and Numbness or Tingling Change Dressing in: leave in place till F/U Cleanse incision/area with: Do not get Incision Wet Additional Dressing/Incision Instructions:: ok to remove cecelia wrap / gauze after 1 day, and cover with bandage Follow Up Care Please Follow Up With: Thomas Kamara MD When: within 2 weeks Test Results: Test results from this visit will be discussed in further detail at your follow-up appointment, if applicable. Discharge Plan Admission Attending Provider: Thomas Kamara Primary Care Provider: Zackary Wood [facility] Instructions Print Language: Egyptian Discharge Orders/Prescriptions Prescriptions: No Action ibuprofen 600 MG tablet 600 mg PO Q6H PRN PRN (Reason: Pain) Qty: 30 0RF naproxen [Naprosyn] 500 mg tablet 500 mg PO BID PRN (Reason: pain) Qty: 20 0RF Nurtec ODT 75 mg tablet,disintegrating 75 mg PO QODAY PRN (Reason: migraine headache) Referrals / Follow Up: Zackary Wood, ELEVATOR STARTER-C [Primary Care Provider] - Thomas Kamara MD [Med Staff - Active Staff] - Disposition Disposition (needs filled in before D/C Order can be placed): Home, Self Care 07/10/24 1039 Thomas Kamara MD CC: ELEVATOR STARTER-C Zackary Wood Signed [facility] MR/POSTOP.ANE 07-10-2024 MR/POSTOP.[facility] Medical Records Department [address] [place] [address] Anesthesia Postop Eval I 07/10/24 1043 MR#: [id number] Acct: [id number] Name: AISHA HILL Rep #: [id number] : 1995 29 From: Bimal Riddle CRNA PCP: CHAR Sanon Status:[facility] Y Race: C Location: [facility] Anesthesia: Postop Eval I Current Vital Signs Temperature: 97 F Pulse Rate: 86 Blood Pressure: 130/79 Respiratory Rate: 16 Pulse Ox: 98 Oxygen Delivery Method: Room Air Assessment Airway patent: Yes Spontaneous unlabored respirations: Yes Mental status: Awake and Calm nausea: No Vomiting: No Anesthesia Complication: No Fluid Hydration Crystalloid volume administer (ml): 800 Total IV fluid infused: 800 Progress Note Anesthesia document: Postop Eval 1 completed: Yes 07/10/24 1432 Date Bimal Riddle INK PRINTER Cosigner Signature: Date CC: Signed [facility] MR/[id number] 07-10-2024 [facility] Medical Records Department [address] [place] [address] Anesthesia Postop Eval II 07/10/24 1145 MR#: [id number] Acct: [id number] Name: AISHA HILL Rep #: [id number] : 1995 29 From: Ct Handy PCP: CHAR Sanon Status:REG [facility] Y Race: C Location: [place] [address] Anesthesia Postop Eval I Sum Postop Eval Completion status Anesthesia document: Postop Eval 1 completed: Yes Anesthesia Postop Eval I Summary Anesthesia Postop Eval I Summary: Anesthesia Postop Eval I: Assessment Summary Airway patent Yes 07/10/24 10:44 [email or web address] Spontaneous unlabored Yes 07/10/24 10:44 [email or web address] respirations Mental status Awake,Calm 07/10/24 10:44 [email or web address] nausea No 07/10/24 10:44 [email or web address] Vomiting No 07/10/24 10:44 [email or web address] Anesthesia Postop Eval I: Fluid Summary Crystalloid volume administer 800 07/10/24 10:44 [email or web address] (ml) Colloids volume administered ( ml) Blood Product volume administered (ml) Total IV fluid infused 800 07/10/24 10:44 [email or web address] Anesthesia Postop Eval I: Summary Notes Anesthesia Complication No 07/10/24 10:44 [email or web address] Anesthesia Complication Comment: Post-operative progress note Anesthesia: Postop Eval II Evaluation Mental status: Awake and Calm Pain Level: 1 nausea: No Vomiting: No 07/10/[address] Rudolph Signature: Date CC: Signed Normal Operative Reporton Operative Report [facility] Medical Records Department [address] [place] [address] Operative Report 07/10/24 1035 MR#: [id number] Acct: [id number] Name: AISHA HILL Rep #: [id number] : 1995 29 From: Thomas Kamara MD PCP: CHAR Sanon Status:REG [facility] Location: [place] [address] Problems Associated Problem List Diagnoses (1) Bilateral carpal tunnel syndrome: Procedures Musculoskeletal 20xxx-29xxx: Other Procedure See Report Operative Report (Standard) Operative Information Date of Procedure: 07/10/24 Pre-Operative Diagnosis: Bilateral carpal tunnel syndrome Post-Operative Diagnosis: Same Surgery/Procedure Performed: Bilateral endoscopic carpal tunnel release septic tank installer: Yes Aircraft Maintenance Director: colton Tasks completed by rn first assist: Retracting Additional data control assistant?: No Type of Anesthesia: Local MAC RN Documented Start/Stop Times: Operation Date: 07/10/24 09:00 Case Time Into Pre-Op 07/10/24 07:34 Out of Pre-Op 07/10/24 09:30 Anesthesia Start 07/10/24 09:47 Into Room 07/10/24 09:47 Procedure Start 07/10/24 10:06 Procedure End 07/10/24 10:32 Procedure Start Time: 10:06 Procedure Stop Time: 10:32 Select all DRAINS/GRAFTS/IMPLANT S that apply: None Estimated Blood Loss: 10 Specimen collected: No Description of surgery: Patient brought to the operating room theater. Placed upon on the table. 2g iv ancef before the start of the case. Local/MAC induced by the anesthetic team. Patient placed supine on the table all bony prominences padded. SCDs on the legs. Hand table used both sides. Tourniquet applied properly padded to both upper extremity. Upper extremity prepped and draped in the usual sterile fashion with chlorhexidine-based prep solution allowing over 3 minutes drying time prior to draping. Preoperative timeout performed to confirm the site patient and the surgery. Did the same procedure on both sides. Began by elevating the limb and inflated the tourniquet to 250 mmHg. I used the Arthex center line endoscopic carpal tunnel kit / technique. I made a transverse 2 cm incision in line with the??? transverse wrist crease.??? This was in line with the fourth digit.??? I car ried the dissection down through skin and subcutaneous tissue achieved meticulous hemostasis. Just ulnar to palmaris tendon.??? I incised the antebrachial fascia.??? I passed sequential dilators into the carpal tunnel along the radial border of the Guyon's canal aiming for the fourth digit with the hand in extension.??? I used a synovial elevator to identify the transverse fibers of the transverse carpal tunnel ligament.??? Passed the scope into the carpal tunnel. Once I had identified the full proximal and distal extent of the ligament I fully released the ligament under direct visualization by deploying the blade and slowly withdrawing the scope made sequential passes until I no longer felt tension as well as the entire extent of the ligament was released under direct visualization.??? Sounded the tunnel with reynoso tenotomy scissors, complete release, no bands. Arthroscope light was more visible through the skin. Release the forearm fascia also. Pictures taken and saved. Wounds thoroughly irrigated.??? 2cc 0.25% bupivicaine for local anesthesia (4 total). Tourniquet let down prior to end of the case and meticulous hemostasis achieved.??? Thorough irrigation.? Incisions closed with 3-0 vicryl and dermabond and 3-0 moncryl for skin. ???Then adaptic 4x4 gauze and cecelia wrap loosely wrapped. Patient woken up,??? transferred off the operating room table and taken to postanesthetic care unit in stable condition. All sponge needle instrument counts were correct no complications.???Plan for the patient to be discharged home according to day surgery criteria when they are comfortable. Follow-up in the office in 2 days time. Gentle ROM hand and elbow no heavy lifting. cpt 84713 x2 Surgical Findings: as above Complications Complications: No Admit VTE Documentation VTE Present on Admission: No VTE Mechan Device Prophylaxis: SCD's VTE Pharm Prophylaxis ordered?: No Reason prophylaxis not ordered: Treatment Not Indicated 07/10/24 1037 Cosigner Signature (if applicable): CC: CHAR Wood; Dr. Thomas Kamara MD Signed Normal ,Urineon 07-10-2024 Beta HCG ( test) Ql (U) Negative [facility] Comment on above: Result Comment: Very dilute urine specimens, as indicated by a low specific gravity, may not contain airport representative levels of hCG. If is still suspected, a first morning urine specimen should be collected 48 hours later and tested. Performed By: #### L 400.7600 #### [id number] [place], [address] Urine testOrdered By: Valdo Louis on 07-10-2024 HCG ( test) Ql (U) Negative Comment on above: Very dilute urine sp ecimens, as indicated by a low specificgravity, may not contain airport representative levels of hCG. If is still suspected, a first morning urinespecimen should be collected 48 hours later and tested. Orthopedic Visit Reporton Orthopedic Visit Report [facility] [address] [place] [address] [address] [place] [address] OFFICE VISIT Date of Service: 05/21/24 MR#: [id number] Acct: [id number] Name: AISHA HILL Rep #: [id number] : 1995 Provider: Dr. Thomas mohamud MD Age/Sex: 28/F Location: [facility].CON Status: Signed Intake Vital Signs 02/19/24 16:37 05/21/24 09:18 Height 5 ft 4 in 5 ft 4 in Weight: 183 lb 6 oz 182 lb BMI 31.4 31.2 BP 136/70 H Blood Pressure Location Lt brachial Position Sitting Respiration 15 Pulse 81 Pulse Source NIBP Temp 98.7 F Temp Source Temporal Pulse Oximetry (%) 98 Oxygen Delivery Method room air Intake Visit Reasons: BILATERAL HANDS Chief Complaint: bilateral hands Is patient in pain?: Yes (bilateral hands ) Pain scale (1-10): 3 Allergies No Known Allergies Allergy (Verified 05/21/24 09:20) Medications ???Medication ???Instructions ???Recorded ???Confirmed ???Type ibuprofen 600 mg tablet 600 mg PO Q6H PRN PRN Pain #30 02/16/18 Rx TABLETS naproxen 500 mg tablet (Naprosyn) 500 mg PO BID PRN pain #20 tabs 12/27/22 Rx PFSH Medical History Bilateral carpal tunnel syndrome Anxiety Surgical History delivery delivered Hx of appendectomy History of tonsillectomy Family History Grandmother Diabetes Social History Smoking Status: Current some day smoker tobacco type: cigarettes alcohol intake: never substance use type: does not use caffeine: Yes frequency: 1-2 times per week seatbelt use: always do you feel safe at home: Yes additional social history: Single- [employer] HPI BILATERAL HANDS Details: This documentation accurately reflects the service provided and the decisions made by me, Dr. Thomas Kamara MD 05/21/24 0699. Part of today???s visit was documented by [ ], acting as scribe. AISHA HILL is a 28 year old F here today for bilateral carpal tunnel syndrome 1.5 yrs. RHD. worse thumb index and middle fingers. trying night splinting not working. 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 worse at night. Supplemental Info [facility]Neu[facility] [address] [place] [address] MR#: [id number] Acct: [id number] Name: AISHA HILL Rep #: [id number] : 1995 28 From: Jessica Winters MD Referring Dr: Zackary Wood [facility] ELEVATOR STARTER-C Status: REG CLI Location: PSN Date: 01/03/24 Sex: F C NCS and/or EMG Patient Report Ordering Doctor: Zackary Wood [facility] DATE OF SERVICE: 01/03/24 Aisha presents with complaints of numbness and weakness in both hands for the past several months. Electrodiagnostic findings: Left median motor nerve demonstrates normal distal latency, amplitude and conduction velocity. Right median motor nerve demonstrates normal distal latency and amplitude with reduction in conduction velocity. Ulnar motor responses are within normal limits bilaterally. Normal median and ulnar F???waves. Prolonged right median sensory latency at the wrist. Absent left median palmar response. Needle EMG testing was performed the upper limbs. All muscles tested showed no evidence of denervation with normal motor unit action potentials Electrodiagnostic impression: This is an abnormal study of the upper limbs 1. Electrodiagnostic findings suggestive of bilateral median mononeuropathy. This is consistent with a mild bilateral carpal tunnel syndrome. 2. No electrodiagnostic evidence is noted for ulnar neuropathy, including cubital tunnel syndrome. 3. No electrodiagnostic evidence noted for cervical radiculopathy. Multi Select Codes Neurology Neurology Interp Codes: 03006-73 Musc test done w/n test comp (interp) (2) and 21105-06 Nrv cndj test 13/> studies (interp) Coding Level of Care Code Off vis,new,level 3 Diagnoses Bilateral carpal tunnel syndrome G56.03 Assessment and Plan Assessment and Plan (1) Bilateral carpal tunnel syndrome: Status: Acute Plan: 28 yr F with bilateral median mononeuropathy. This is consistent with a mild bilateral carpal tunnel syndrome. Patient counseled on the diagnosis prognosis different treatment options available include but not limited to rest ice anti-inflammatories active modification stretching nerve gliding exercises cortisone injections night splinting as well as open or endoscopic carpal tunnel release. The patient would prefer to proceed with surgery for made more definitive solution. They pref (more content not included)... Normal Urgent Care Visit Reporton 1 06-25-2023 Urgent Care Visit Report [facility] [address], [address] [place] [id number] OFFICE VISIT Date of Service: 04/24/24 MR#: [id number] Acct: [id number] Name: AISHA HILL Rep #: [id number] : 1995 Provider: SOLEDAD Dickens Age/Sex: 28/F Location: [facility] Status: Signed Intake Vital Signs 02/19/24 16:37 04/24/24 09:43 Height 5 ft 4 in Weight: 183 lb 6 oz BMI 31.4 BP 136/70 H 122/74 H Blood Pressure Location Lt brachial Lt brachial Position Sitting Sitting Respiration 15 17 Pulse 81 82 Pulse Source NIBP NIBP Temp 98.7 F 98.3 F Temp Source Temporal Oral Pulse Oximetry (%) 98 98 Oxygen Delivery Method room air room air Intake Visit Reasons: BODY ACHES, COUGHING Chief Complaint: BA, ST, cough, diarrhea, congest, fever Help Desk Technician Required: No Is patient in pain?: No Allergies No Known Allergies Allergy (Verified 04/24/24 09:44) Is last menstrual period known: No Post menopausal: No Patient : No Have you fallen in the past year?: No Nurse's Note: BA, ST, cough, diarrhea, congest, fever x 24 hours. 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 [facility] Medical History (Updated 02/19/24 @ 17:11 by Raheem ROWE, PA) Anxiety Surgical History delivery delivered Hx of appendectomy History of tonsillectomy Family History Grandmother Diabetes Social History Smoking Status: Current some day smoker tobacco type: cigarettes alcohol intake: never substance use type: does not use caffeine: Yes frequency: 1-2 times per week seatbelt use: always do you feel safe at home: Yes additional social history: Single- [employer] HPI HPI Chief Complaint: BA, ST, cough, diarrhea, congest, fever Details: AISHA HILL, is a 28 F who presents to the office today for initial evaluation at the [facility] for approximately 36-hour history of myalgias, sore throat, cough, diarrhea, congest, fever. No complaints of chest pain or shortness of breath or dyspnea on exertion. No ylho-dwq-xthekdj products taken to assist. Several close contacts with similar URI complaints. No other associated symptoms and no alleviating/aggravati ng factors. ROS Const Constitutional: No other (as above) Exam Const General: cooperative, healthy appearing and no acute distress Nutritional Appearance: average body habitus Orientation: alert, awake and oriented x3 HENMT Head: normal to inspection Ears: hearing grossly normal bilaterally, external ears normal, TM's normal bilaterally and EAC's normal Nose: external nose normal, nares normal, septum normal and nasal discharge clear Face and sinus: normal facial exam, sinuses nontender and face symmetric Mouth: oral mucosae normal, lip normal, tongue normal and oropharynx normal Throat: posterior oropharynx normal, tonsils normal, uvula midline and no postnasal drainage Eyes General: appearance normal, both eyes and all related structures Neck Neck: normal visual inspection, full ROM, no lymphadenopathy, no meningeal signs and supple Neck mass: No Thyroid: thyroid normal Lymphatic: no lymphadenopathy noted Chest Chest palpation inspection: normal inspection of the chest Resp Effort Inspection: normal respiratory effort, able to speak in complete sentences and cough Quality of cough: wet (Nonproductive in office today) Auscultation: Bilateral: Clear to Auscultation Cardio Palpation: normal PMI Rate: tachycardic Rhythm: regular rhythm Heart Sounds: S1 normal, S2 normal, no gallops, no murmurs and no rubs Pulses: radial pulses present GI Inspection: normal to inspection Palpation: soft and no hepatosplenomegaly Skin General: no rashes or lesions noted Neuro General: patient alert, patient awake and patient oriented x3 Cognition: normal cognition Speech: speech normal Psych Appearance: grossly normal Mental Status: mental status grossly normal Mood: congruent mood Affect: normal affect Speech and Movement: speech and movement normal Attitude: cooperative Diagnoses COVID-19 U07.1 Assessment and Plan Assessment and Plan (1) COVID-19: Status: Acute Plan: See POC results; copy of results given at her request. Dexamethasone and Benzonatate as prescribed today. Supportive measures as instructed today. Patient aware of isolation recommendations and [facility] department notification. Follow-up with PCP in 5 to 7 days should symptoms not improve, ED sooner should symptoms worsen or any other concerns develop. Patient states acknowledging understanding all the above Results POC SARS AG POC SARS AG Positive Last Edit by Meagan Dey (more content not included)... Normal Urgent Care Visit Reporton 0 02-19-2024 Urgent Care Visit Report [facility] [address], [address] [place] [address] OFFICE VISIT Date of Service: 02/19/24 MR#: [id number] Acct: [id number] Name: ROBERTAISHA MARCIAL Rep #: [id number] : 1995 Provider: SOLEDAD Suarez Age/Sex: 28/F Location: [facility] Status: Signed Intake Vital Signs 12/28/22 17:34 02/19/24 16:37 Height 5 ft 3 in 5 ft 4 in Weight: 183 lb 6 oz BMI 31.4 BP 136/70 H Blood Pressure Location Lt brachial Position Sitting Respiration 15 Pulse 81 Pulse Source NIBP Temp 98.7 F Temp Source Temporal Pulse Oximetry (%) 98 Oxygen Delivery Method room air Intake Visit Reasons: BILAT EAR PAIN Chief Complaint: bilat ear pressure/popping Help Desk Technician Required: No Is patient in pain?: No Allergies No Known Allergies Allergy (Verified 02/19/24 16:38) Is last menstrual period known: No Post menopausal: No Patient : No Have you fallen in the past year?: No Nurse's Note: bilat ear pressure/popping/decr eased hearing. s/s x 2 1/2 weeks after recent viral illness. all other s/s have resolved [facility] Medical History (Updated 02/19/24 @ 17:11 by Raheem ROWE, PA) Anxiety Surgical History delivery delivered Hx of appendectomy History of tonsillectomy Family History Grandmother Diabetes Social History Smoking Status: Current some day smoker tobacco type: cigarettes alcohol intake: never substance use type: does not use caffeine: Yes frequency: 1-2 times per week seatbelt use: always do you feel safe at home: Yes additional social history: Single- [employer] [facility] HPI Chief Complaint: bilat ear pressure/popping Details: AISHA HILL, is a 28 F who presents to the office today for complaint of bilateral ear pressure and popping as well as decreased hearing for the past week. Patient states that she had a viral sinus infection 2 weeks ago and then when she went into an airplane her ears popped and have been plugged since. She denies otorrhea or complete hearing loss. No fever, chills, sweats. No nausea, vomiting and diarrhea. No hemoptysis, shortness of breath or difficulty breathing. No other associated symptoms or alleviating/aggravati ng factors. ROS Const Constitutional: No other (6 system ROS completed with pertinent findings in the HPI otherwise normal.) Exam Const General: cooperative and well developed HENMT Head: normal to inspection and atraumatic Ears: hearing grossly normal bilaterally and TM abnormal bulging bilaterally and with fluid behind the TM bilaterally Nose: nasal discharge clear Face and sinus: normal facial exam Mouth: oral mucosae normal Throat: abnormal tonsil bilaterally hypertrophy 1+ Resp Effort Inspection: normal respiratory effort and no audible wheezes Auscultation: Bilateral: Clear to Auscultation Cardio Palpation: normal PMI Rate: regular rate Rhythm: regular rhythm Neuro General: patient alert and CN's II-XI intact bilaterally Psych Appearance: grossly normal Mental Status: mental status grossly normal Coding Level of Care Code Off vis,new,level 3 Diagnoses Dysfunction of both eustachian tubes H69.93 Assessment and Plan Assessment and Plan (1) Dysfunction of both eustachian tubes: Status: Acute Plan: Medrol Dosepak and Nasacort as prescribed today. Encouraged to get plenty of rest, drink lots of clear liquids, and use Tylenol or Ibuprofen (unless contraindicated) for comfort. Patient also educated on other symptomatic management techniques. To be seen in 2 to 3 weeks with ENT if no better or sooner if worse. Patient advised of potential red flags and when appropriate to report to the ED. Patient verbalized understanding and agreement with all the above. Medications: New methylprednisolone (Medrol (Po)) 4 mg PO PER PKG DIR 6 days 21 tabs 0RF triamcinolone acetonide (Nasacort) administer into each nostril 2 sprays intranasal QDAY 16.9 mL 0RF Clinical Quality Measures Falls Risk Screening/Assistive Devices Have you fallen in the past year?: No 02/19/24 5614 Date Raheem Rudolph Signature: Date (if applicable) CC: Normal Brain W/WO Contraston 2023 Brain W/WO Contrast [facility] Imaging Services [address] [place], [place] [address] Brain W/WO Contrast MR#: [id number] Acct: [id number] Name: AISHA HILL Rep #: [id number] : 1995 F 28 From: Del sanchez MD PCP: CHAR Sanon Status: REG CLI Study: Brain W/WO Contrast Date of Exam: 01/30/24 Exam# [id number] Ordering Dr: Zackary Wood [facility] ELEVATOR STARTER-C [id number] STUDY: MRI BRAIN WITH AND WITHOUT CONTRAST REASON FOR EXAM: Female, 28 years old. MIGRAINE TECHNIQUE: Standardized multiplanar fat and water weighted pulse sequences were obtained. 17ML IV CLARISCAN was administered for the contrast portion of the examination. COMPARISON: Head CT dated December 28, 2022 FINDINGS: Normal size of the ventricles and extra-axial spaces for the patient''s age. Normal white matter tracts of the supratentorial brain. There is no evidence for recent intracranial ischemia or other cause of cytotoxic edema on diffusion weighted imaging (DWI). There are no demyelinating plagues of the supratentorial brain, brainstem or cerebellum. There are no findings suspicious for multiple sclerosis (MS). There are no white matter hyperintensities. Specifically, there are no focal areas of white matter gliosis which are occasionally associated with vasospastic migraine headaches. Normal bilateral basal ganglia. Normal thalami. There is no extra-axial fluid accumulation. Normal flow voids within the major intracranial circulation suggesting patency by spin echo criteria. Normal venous enhancement. There is no enhancing intra-axial or extra-axial abnormality. No focal brain parenchymal lesions are present. There are no areas of abnormal enhancement of the brain parenchyma. No abnormal thickening or enhancement meninges or dura is demonstrated. No skull lesions are present. Normal sella turcica, pituitary gland, infundibular stalk, optic chiasm and hypothalamus. Normal tectal plate and pineal gland. Normal midbrain, jose and medulla. There is mild tonsillar ectopia, which is within normal limits, and without distortion of the brainstem. The findings are not consistent with an Arnold-Chiari type I malformation. Normal basal cisterns. Normal bilateral temporal bones. Normal bilateral internal auditory canals. No demonstrated orbital abnormality, within the constraints of a routine brain study. Normal visualized paranasal sinuses. Normal calvarium and skull base. Normal visualized soft tissue structures. Normal visualized upper cervical spine. MRI/Brain W/WO Contrast IMPRESSION: 1. Normal unenhanced and enhanced MRI of the brain. Electronically Signed: Del Hugo MD at 9:46 EDT Reading Location ID and State: [facility] / [place] , Service support , CC: CHAR Wood Academic Services Coordinator: Signed Normal NCS and/or EMG Patienton NCS and/or EMG Patient [facility] Pulmonary Services/Neurology [address] [place] [address] MR#: [id number] Acct: [id number] Name: AISHA HILL Rep #: [id number] : 1995 28 From: Jessica Winetrs MD Referring Dr: Zackary Wood [facility] ELEVATOR STARTER-C Status: REG C LI Location: [facility] Date: 01/03/24 Sex: F C NCS and/or EMG Patient Report Ordering Doctor: Zackary Wood DATE OF SERVICE: 01/03/24 Aisha presents with complaints of numbness and weakness in both hands for the past several months. Electrodiagnostic findings: Left median motor nerve demonstrates normal distal latency, amplitude and conduction velocity. Right median motor nerve demonstrates normal distal latency and amplitude with reduction in conduction velocity. Ulnar motor responses are within normal limits bilaterally. Normal median and ulnar F???waves. Prolonged right median sensory latency at the wrist. Absent left median palmar response. Needle EMG testing was performed the upper limbs. All muscles tested showed no evidence of denervation with normal motor unit action potentials Electrodiagnostic impression: This is an abnormal study of the upper limbs 1. Electrodiagnostic findings suggestive of bilateral median mononeuropathy. This is consistent with a mild bilateral carpal tunnel syndrome. 2. No electrodiagnostic evidence is noted for ulnar neuropathy, including cubital tunnel syndrome. 3. No electrodiagnostic evidence noted for cervical radiculopathy. Multi Select Codes Neurology Neurology Interp Codes: 91715-80 Musc test done w/n test comp (interp) (2) and 70996-36 Nrv cndj test 13/> studies (interp) 01/03/241512 Date Jessica Winters MD CC: ELEVATOR STARTER-Florina Wood; Dr. Jessica Winters MD Date Dictated: 01/03/241510 Date Transcribed: 01/03/241510 Academic Services Coordinator: LAURA Signed Normal [facility] DIAGNOSTIC BILon 021 [facility] * * *Final Report* * * DATE OF EXAM: Mar 10 2021 1:37PM [id number] [id number] - [facility] / PROCEDURE REASON: multiple diagnoses * * * * Physician Interpretation * * * * RESULT: #[id number] - [facility] BILATERAL DIGITAL DIAGNOSTIC MAMMOGRAM WITH CAD: 03/10/2021 HISTORY: Multiple Diagnoses / SEE TECH NOTE. RESULT: TECHNIQUE: The study was acquired using full field digital technology and interpreted from soft copy. Current study was also evaluated with a Computer Aided Detection (CAD). No prior exams were available for comparison. The tissue of both breasts is heterogeneously dense. This may lower the sensitivity of mammography. No significant masses, calcifications, or other findings are seen in either breast. IMPRESSION: BENIGN FINDING There is no mammographic abnormality seen in the left breast to correspond with the nipple abnormality and the pain; however, further workup with ultrasound is recommended. There is no mammographic evidence of malignancy. Tomas miller/verónica:03/10/2021 13:57:16 Gas Torch Solderer(s): RT Frank(R)(M), [facility] Mammogram BI-RADS: 2 Benign finding Multiple national specialty organizations have released breast cancer screening guidelines for women at average risk for developing breast cancer - guidelines that are based on both evidence and opinion, yet differ on when to start and how often to screen for breast cancer. With representation from Breast Imaging, Internal Medicine, Women's Health, Family Medicine, and Medical/Surgical Oncology, the [facility] has carefully reviewed the data and reached the following consensus: 1) All women should engage in shared decision-making with their providers to decide when to start and how often to screen; 2) All women should have the opportunity to start screening mammography at age 40; 3) For women ages 45-55, we recommend annual screening mammograms; 4) For women ages 55 and over, we support both the transition from an annual to a biennial interval if this aligns more with patient's values and preferences, or continuation with annual screening; 5) All women should discuss with their providers when to stop screening mammograms. Academic Services Coordinator: Verónica Transcribe Date/Time: Mar 10 2021 1:22P Dictated by: TOMAS RAI MD This examination was interpreted and the report reviewed and electronically signed by: TOMAS RAI MD on Mar 10 2021 1:57PM EST [id number] N Normal [facility] iRise BREAST LTD LTon 03-10 iRise BREAST WiFast LT * * *Final Report* * * DATE OF EXAM: Mar 10 2021 1:12PM WRU [id number] - [facility] LT / PROCEDURE REASON: multiple diagnoses * * * * Physician Interpretation * * * * #[id number] - [facility] LIMITED ULTRASOUND OF LEFT BREAST: 03/10/2021 HISTORY: Multiple Diagnoses. RESULT: Comparison is made to exam dated: 03/10/2021 mammogram - [facility]. Real-time ultrasound of the left breast 12-6 o'clock, and retroareolar regions was performed. Avila scale images of the real-time examination were reviewed. IMPRESSION: NEGATIVE There is no sonographic evidence of malignancy. There is no abnormality seen in the left breast to correspond with the nipple abnormality (retraction) and pain, however, clinical followup is recommended. Tomas bruceg/:03/10/2021 14:02:19 Gas Torch Solderer(s): Breana Pacheco [facility] Ultrasound BI-RADS: 1 Negative Multiple national specialty organizations have released breast cancer screening guidelines for women at average risk for developing breast cancer - guidelines that are based on both evidence and opinion, yet differ on when to start and how often to screen for breast cancer. With representation from Breast Imaging, Internal Medicine, Women's Health, Family Medicine, and Medical/Surgical Oncology, the [facility] has carefully reviewed the data and reached the following consensus: 1) All women should engage in shared decision-making with their providers to decide when to start and how often to screen; 2) All women should have the opportunity to start screening mammography at age 40; 3) For women ages 45-55, we recommend annual screening mammograms; 4) For women ages 55 and over, we support both the transition from an annual to a biennial interval if this aligns more with patient's values and preferences, or continuation with annual screening; 5) All women should discuss with their providers when to stop screening mammograms. Academic Services Coordinator: Verónica Transcribe Date/Time: Mar 10 2021 1:12P Dictated by : TOMAS RAI MD This examination was interpreted and the report reviewed and electronically signed by: TOMAS RAI MD on Mar 10 2021 2:02PM EST [id number] Normal [facility] CNOVon 03-04-2021 CNOV Office Visit (OBGYWM ) AISHA HILL ([id number]) 1995 F Date Time Provider Department 03/04/21 8:30 AM CANDICE CANTU OBNEGRO During your visit today, we recorded the following information about you: Blood pressure Weight Last Period 122/68 71.5 kg 03/02/21 Candice Cantu APRN.TUBE TURNER 03/04/2021 9:04 AM Signed Aishamaia Hill is a 25 year old OB History T1 L1 SAB0 TAB0 Ectopic0 Multiple0 Live Births1 who presents with pain in the left breast for past year. Always has achypain, sometimes worse which sometimes extends into armpit. Random tingling and itching around nipple and outer and beneath breast. Inverted left nipple noted in past year after - mother and MGM also have inverted nipple. Left breast larger since having son 2 years ago. Caffeine - 3-5 cups of coffee/day. Smokes 4-5 cigarettes/daily. Wears bra during day, not at home Accompanied by mother. Her history includes: breast feeding. No known trauma. MGM - breast cancer diagnosed at 68, mastectomy. Maternal great aunt breast cancer. Mother - grouped crystals removed right breast Mother and MGM - BRCA negative. OBJECTIVE: CHEST: Normal expiratory effor BREASTS: Symmetrical to inspection., No dimpling or skin changes., Normal consistency, no palpable masses., No axillary lymphadenopathy., normal everted right nipple with no discharge. Positive findings: inverted left nipple with no discharge. Tenderness with palpation to left breast from 12 o'clock to 6 o'clock extending to include all breast tissue to outer quadrants. ASSESSMENT/PLAN: 1. Breast pain, left - ICD9: 611.71, ICD10: N64.4 (primary diagnosis) - [facility] - US BREAST LTD LT Given breast pain instructions. 2. Inverted nipple - ICD9: 611.79, ICD10: N64.59 - [facility] - US BREAST LTD LT Will notify of results. Follow- up as needed. Candice Cantu APRN.RADHA Medical Decision Making: Problems: Moderate: New problem with uncertain prognosis Data: Unique test(s) ordered: 2 Medical Decision Making Level: 3 - Low Candice Cantu APRN.CNP 03/04/2021 8:55 AM Signed Management of Benign Breast Pain / Fibrocystic Changes ? Decrease or avoid intake of caffeine, including coffee, teas, sodas, and chocolate. ? Decrease or avoid nicotine. ? Wear a support or sports (not underwire) bra. ? Take egts-tsi-kmfagor ibuprofen (Advil/Motrin) or other NSAIDs, such as naproxen (Aleve). ? Take 3 grams (3000 mg.) of evening primrose oil (available pcms-vkb-cxjprxg) in divided doses for 2 months. ? Take warm showers. ? Use warm compresses. Referring Provider: SELF [200] Allergies As of Date: 03/04/2021 (No Known Allergies) Date Reviewed: 03/04/2021 Reviewed by: Candice Cantu APRN.TUBE TURNER - Fully Assessed Reason for Visit: left breast pain [Other] Cmt: nipple inverted, larger than right Primary Visit Diagnosis:Breast pain, left [N64.4] Other Visit Diagnosis:Inverted nipple [N64.59] Order(s):[facility] [[id number]] Order #: [id number] [facility] US BREAST LTD LT [[id number]] Order #: [id number] Prescriptions as of 03/04/2021 - levonorgestrel (MIRENA) 20 mcg/24 hr (5 years) IUD Inserted in office - LORazepam (ATIVAN) 0.5 mg tab Take 1 tablet by mouth three times daily as needed (anxiety). Problem List As Of Date 03/04/2021 Noted Resolved Supervision of normal [Z34.90] 10/03/2014 Pruritic urticarial papules and plaques of preg*10/20/2014 Anxiety during , antepartum [O99.340, *12/16/2014 Other instructions from your clinician: Management of Benign Breast Pain / Fibrocystic Changes ? Decrease or avoid intake of caffeine, including coffee, teas, sodas, and chocolate. ? Decrease or avoid nicotine. ? Wear a support or sports (not underwire) bra. ? Take skat-bgx-sndzkmt ibuprofen (Advil/Motrin) or other NSAIDs, such as naproxen (Aleve). ? Take 3 grams (3000 mg.) of evening primrose oil (available ujya-pgp-etnowyz) in divided doses for 2 months. ? Take warm showers. ? Use warm compresses. Encounter Status:Closed by CANDICE CANTU on 03/04/21 Normal [facility] Document: (P) PAP I -G w/rfx hrHPVon 01-14-2017 GE use only - for LinkLogic import when terms are not otherwise specified Comment Invalid Interpretation Code . [facility] HPV RFLX Comment . [facility] Microbiology: (P) Beata Acostaital Comprehensiveon 01-12-2017 GE use only - for LinkLogic import when terms are not otherwise specified . Invalid Interpretation Code [facility] Work Phone: Microbiology: (P) Beata Acosta enital Comprehensiveon 01-11-2017 GE use only - for LinkLogic import when terms are not otherwise specified . Invalid Interpretation Code [facility] Work Phone: Office Visit: sherie sim 12-21 Documentation of current medications (procedure) Done Invalid Interpretation Code [facility] Fall risk assessment No Invalid Interpretation Code [facility] Protein mass conc Done [facility] Smoking cessation education (procedure) yes Invalid Interpretation Code [facility] Tobacco smoking status NHIS Current Invalid Interpretation Code [facility] Tobacco smoking status NHIS Current every day smoker [facility] Tobacco use CPHS Current every day smoker Invalid Interpretation Code [facility] Office Visit: sherie sim General categories [Interpretation] of Cervical or vaginal smear or scraping by Cyto stain Normal Invalid Interpretation Code [facility] Vital Signs Date Time Vital Sign Value Performing Clinician Facility 11-22-2024 12:55-0400 Body temperature 98.4 [degF] Zackary Wood ELEVATOR STARTER-C Work Phone: [phone] [place], [place] [address] 11-22-2024 12:55-0400 Diastolic blood pressure 84 mm[Hg] Zackary Wood ELEVATOR STARTER-C Work Phone: 2(161)665-39[address] [place] [address] 11-22-2024 12:55-0400 Heart rate 88 /min Zackary Wood ELEVATOR STARTER-C Work Phone: 2(508)776-912900 [place] [address] 11-22-2024 12:55-0400 Respiratory rate 16 /min Zackary Wood ELEVATOR STARTER-C Work Phone: 7(876)316-842900 [place] [address] 11-22-2024 12:55-0400 SaO2% (BldA) [Mass fraction] 98 % Zackary Wood ELEVATOR STARTER-C Work Phone: 5(278)632-260200 [place] [address] 11-22-2024 12:55-0400 Systolic blood pressure 122 mm[Hg] Zackary Wood ELEVATOR STARTER-C Work Phone: 5(581)574-423500 [place] [address] 11-18-2024 12:06-0400 Body temperature 98.9 [degF] Zackary Wood ELEVATOR STARTER-C Work Phone: 6(783)933-981400 [place] [address] 11-18-2024 12:06-0400 Diastolic blood pressure 70 mm[Hg] Zackary Wood ELEVATOR STARTER-C Work Phone: 2(835)991-243442 [place] [address] 11-18-2024 12:06-0400 Heart rate 105 /min Zackary Wood ELEVATOR STARTER-C Work Phone: 4(957)411-825642 [place] [address] 11-18-2024 12:06-0400 Respiratory rate 16 /min Zackary Wood ELEVATOR STARTER[employer]C Work Phone: 9(073)686-359142 [place] [address] 11-18-2024 12:06-0400 SaO2% (BldA) [Mass fraction] 98 % Zackary Wood ELEVATOR STARTER-C Work Phone: 8(042)777-397842 [place] [address] 11-18-2024 12:06-0400 Systolic blood pressure 116 mm[Hg] Zackary Wood ELEVATOR STARTER-C Work Phone: 6(781)878-497942 [place] [address] 10-15-2024 16:00-0400 Body temperature 98 [degF] Zackary Wood ELEVATOR STARTER-C Work Phone: 5(700)334-108042 [place] [address] 10-15-2024 16:00-0400 Diastolic blood pressure 61 mm[Hg] Zackary Wood ELEVATOR STARTER-C Work Phone: 9(488)910-023742 [place] [address] 10-15-2024 16:00-0400 Heart rate 81 /min Zackary Wood E[employer]ATOR ST[employer]C Work Phone: 2(921)602-915842 [place] [address] 10-15-2024 16:00-0400 Respiratory rate 14 /min Zackary Wood ELEVATOR STARTER[employer]C Work Phone: 0(022)452-689642 [place] [address] 10-15-2024 16:00-0400 SaO2% (BldA) [Mass fraction] 97 % Zackary Wood ELEVATOR STARTER-C Work Phone: 7(084)906-662442 [place] [address] 10-15-2024 16:00-0400 Systolic blood pressure 138 mm[Hg] Zackary Wood ELEVATOR STARTER-C Work Phone: 3(879)341-233142 [place] [address] 10-15-2024 14:40-0400 Body height 165.1 cm Zackary Wood ELEVATOR STAR[employer]C Work Phone: 7(011)974-998842 [place] [address] 10-15-2024 14:40-0400 Body mass index (BMI) [Ratio] 30.2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 2024 Zackary Srivastavader VSC, E[employer]ATOR ST[employer]-C Referring Provider Active S tart: August 20, 2024 End: August 20, 2024 Thomas Kamara MD Attending Provider Active St art: August 20, 2024 End: August 20, 2024 Team Status: Inactive Member Role/Relationship Status Dates Zackary Wood VSC, [employer]-C Primary Care Provider Active Start: October 15, 2024 End: October 15, 2024 Dr. Meaghan Foster DO Attending Provider Active Start: October 15, 2024 End: October 15, 2024 Dr. Meaghan Foster DO Emergency Provider Active Start: October 15, 2024 End: October 15, 2024 Team Status: Inactive Member Role/Relationship Status Dates Zackary Srivastavader VSC, E[employer]ATOR ST[employer]-C Primary Care Provider Active Start: November 18, 2024 End: November 18, 2024 Zackary Srivastavader VSC, E[employer]-C Referring Provider Active S tart: November 18, 2024 End: November 18, 2024 Uriel Sims PA, PA Attending Provider Active Start: November 18, 2024 End: November 18, 2024 Team Status: Inactive Member Role/Relationship Status Dates Zackary Srivastavader VSC, E[employer]-C Primary Care Provider Active Start: August 20, 2024 End: August 20, 2024 Zackary Wood VSC, [employer]-C Referring Provider Active S tart: August 20, 2024 End: August 20, 2024 Thomas Kamara MD Attending Provider Active St art: August 20, 2024 End: August 20, 2024 Team Status: Inactive Member Role/Relationship Status Dates Zackary BARONEC, ELEVATOR STARTER-C Primary Care Provider Active Start: October 15, 2024 End: October 15, 2024 Dr. Meaghan Foster DO Attending Provider Active Start: October 15, 2024 End: October 15, 2024 Dr. Meaghan Foster , Emergency Provider Active Start: October 15, 2024 End: October 15, 2024 Team Status: Inactive Member Role/Relationship Status Dates Zackary Wood VSC, E[employer]-C Primary Care Provider Active Start: November 18, 2024 End: November 18, 2024 Zackary Wood VSC, [employer]-C Referring Provider Active S tart: November 18, 2024 End: November 18, 2024 Uriel ROWE PA Attending Provider Active Start: November 18, 2024 End: November 18, 2024 Team Status: Inactive Member Role/Relationship Status Dates Zackary Wood VSC, E[employer]-C Primary Care Provider Active Start: November 22, 2024 End: November 22, 2024 Zackary Wood VSC, [employer]-C Referring Provider Active S tart: November 22, 2024 End: November 22, 2024 Raheem ROWE PA Attending Provider Active Sta rt: November 22, 2024 End: November 22, 2024 Goals (unrecognized section and content) Goals may be documented in a n alternate sectionGoals may be documented in an alternate sectionGoals may be documented in an alternate sectionGoals may be documented in an alternate section FOR RECORDS PERTAINING TO PATIENTS WHO ARE OR HAVE BEEN ENROLLED IN A CHEMICAL DEPENDENCY/SUBSTANCEABUSE PROGRAM, SOME INFORMATION MAY BE OMITTED. This clinical summary was aggregated from multiple sources. Caution should be exercised in using it in the provision of clinical care. This summary normalizes information from multiple sources, and as a consequence, information in this document may materially change the coding, format and clinical context of patient data. In addition, data may be omitted in some cases. CLINICAL DECISIONS SHOULD BE BASED ON THE PRIMARY CLINICAL RECORDS. [facility], [facility]. provides no warranty or guarantee of the accuracy or completeness of information in this document.
[2024-11-23 00:15] LABS: Hematocrit 35.3 % (37-47); Hemoglobin 11.9 g/dL (12.0-15.0); Immature Granulocytes Count 0.280 X10^3/uL (0.0-0.0); Mean Corp Hgb Conc 33.7 g/dL (32-36); Mean Corpuscular Volume 82.9 fL (81-99); Mean Platelet Vol. 10.1 fl (6.2-12.0); NRBC Flagged by Analyzer 0 % (0-5); Platelet Count 283 K/mm3 (150-450); RBC Distribution Width CV 14.0 % (11.6-14.6); RBC Distribution Width SD 41.8 fl (35.1-43.9); Red Blood Count 4.26 M/mm3 (4.2-5.4); White Blood Count 16.6 K/mm3 (4.4-11.0)
[2024-11-23] MEDS: 0.9% Normal Saline (1000mL) 1,000 ML 1000 ML IV (00:17)
--- NOTE | 2024-11-23 00:20 | RAD_ITS ---
PROCEDURE: CHEST PA AND LATERAL 11/23/2024 REASON FOR EXAM: COUGH AND FEVER TECHNIQUE: CHEST PA AND LATERAL COMPARISON: No FINDINGS: Normal heart size. Well inflated lungs. No consolidation, effusion, or pneumothorax. RAD/Chest PA and Lateral IMPRESSION: No acute chest findings. Reading Location: [place] [id number]
--- NOTE | 2024-11-23 00:34 | EDS_ITS ---
HPI History of Present Illness Chief Complaint: General Illness Detail of Chief Complaint: Onset of illness Monday, November 18 with waxing and waning fever, mild cough e Informant: patient Onset/Context/Timing Onset: Days (Monday, November 18) Context: Sudden Onset Timing: Continuous and Waxes and wanes Quality: Fever, chills, slight cough, myalgias arthralgias Location: Generalized Current Severity: Moderate Maximum Severity: Severe Worsened by: Nothing Relieved by: Nothing Associated Symptoms Associated Symptoms: Nausea, decreased appetite Narrative Narrative: Patient is a 29-year-old female. Patient was seen by SOLEDAD Herzog on November 18. She was seen by Sinan Santiago today. Assessment for November 18 was contact with exposure to other viral diseases, upper respiratory infection. Patient was prescribed a Medrol and antitussive. Recommendation was follow-up with PCP in 5 to 7 days. Assessment in urgent care today is cystitis. Of note the patient has no urinary symptoms. She did have test for influenza, COVID that was negative. Reportedly UA was positive for UTI and started on Bactrim. UA was performed today and was positive for leukoesterase. Was negative for nitrites. There was no micro. Since she has no symptoms and there is no micro doubt diagnosis of cystitis. Patient does report headache. Denies photophobia or sonophobia. She denies runny nose, congestion, postnasal drainage sore throat. She denies ear pain or drainage. She does have a slight nonproductive cough. She denies abdominal pain, nausea, vomiting or diarrhea. She denies dysuria, frequency, urgency or hematuria. She reports low back pain and points to the lower paralumbar region and not flank. Patient was defensive when I asked why they thought UTI and she responded because I have back pain. Prior similar symptoms: Yes Recent Illness/Hospitalization: Yes [facility] Medical History Wears glasses Marijuana use Low iron Easy bruising Migraine headache Former smoker Bilateral carpal tunnel syndrome Home Medications ?Medication ?Instructions ?Recorded ?Last Taken ?Type rimegepant 75 mg disintegrating 75 mg PO QODAY PRN alexa faye 07/01/24 Unknown History tablet (Nurtec ODT) headache ibuprofen 600 mg tablet 600 mg PO Q6H PRN PRN Pain # 20 10/15/24 Unknown Rx TABLETS benzonatate 200 mg capsule 200 mg PO TID PRN cough #20 caps 11/18/24 Unknown Rx methylprednisolone 4 mg tablets in See Rx Instructions PO PER PKG DIR 11/18/24 Unknown Rx a dose pack (Medrol (Po)) #21 tabs ondansetron HCl 8 mg tablet 8 mg PO Q8H PRN nausea and 11/22/24 Unknown Rx vomiting #14 tabs sulfamethoxazole 800 1 tab PO Q12H 7 days #14 tab s 11/22/24 Unknown Rx mg-trimethoprim 160 mg tablet (Bactrim DS) Allergy/AdvReac Type Severity Reaction Status Date / Time No Known Allergies Allergy Verified 11/22/24 23:54 Family History Grandmother Diabetes Surgical History S/p bilateral carpal tunnel release Hx of excision of mass delivery delivered Hx of appendectomy History of tonsillectomy Social History Smoking Status: Current some day smoker tobacco type: cigarettes alcohol intake: never substance use type: does not use caffeine: Yes frequency: 1-2 times per week seatbelt use: always do you feel safe at home: Yes additional social history: Single- [employer] ROS ROS ED Constitutional Constitutional ED: Reports chills, fever(s) and sweats; Denies subjective or weight loss Eyes Eyes: Denies blurry vision, change in vision or diplopia ENT ENT ED: Denies ear pain, rhinorrhea or sore throat Cardiovascular Cardiovascular: Reports palpitations and racing heartbeat; Denies chest pain, orthopnea or paroxysmal nocturnal dyspnea Respiratory/Chest Respiratory/Chest: Reports cough; Denies dyspnea, dyspnea on exertion, orthopnea, paroxysmal nocturnal dyspnea or sputum Gastrointestinal Gastrointestinal: Denies abdominal pain, diarrhea or vomiting Genitourinary Genitourinary ED: Denies dysuria, hematuria or urinary frequency Musculoskeletal Musculoskeletal: Reports arthralgias, back pain and myalgias; Denies neck pain Integumentary Reports rash Neurologic Neurologic: Reports headache(s); Denies paresthesias or weakness Hematologic/Lymphatic Hematologic/Lymphatic: Reports systems reviewed and no addt'l complaints, except as documented EXAM Physical Exam Const Vital Signs: 11/22/24 23:54 11/23/24 00:05 Temperature 100.2 F H Temperature Source Oral Pulse Rate 118 H Respiratory Rate 20 H Respiratory Effort Normal Respiratory Pattern Normal Blood Pressure 130/82 H Blood Pressure Mean 98 Pulse Ox 98 Oxygen Delivery Method Room Air Positive well nourished and well developed Constitutional Narrative: She appears ill but not toxic. Vital signs remarkable for elevated blood pressure, heart rate, respiratory rate and temperature. Patient states her temperature at home prior to presentation was 102.3. She did take antipyretic. General Appearance ED: well developed; Negative for pallor HEENT Reports dry mucous membranes HEENT Narrative: Head is atraumatic normocephalic. Ears normal. TMs normal. Nares patent. Posterior pharynx out erythema or exudate. Mouth ED: Yes dry mucous membranes Mouth: dry mucous membranes Eyes PERRL and EOMs intact bilaterally Eyes Narrative: There is no photophobia. General Eye ED: Negative for pale conjunctiva or scleral icterus Neck no lymphadenopathy, supple and no JVD Neck Narrative: There is no cervical lymphadenopathy. Resp normal respiratory effort and clear to auscultation bilaterally Cardio regular rhythm, S1 normal heart sound, S2 normal heart sound and no murmurs Rate: tachycardic GI normal to inspection, nondistended, normoactive bowel sounds, non-tender, non- distended and no masses; Negative for hepatosplenomegaly Back/Spine no CVA tenderness Back/Spine Narrative: Low paralumbar discomfort. Extremity normal to inspection General Extremety ED: Negative for edema, tenderness or other findings General Extremity: Negative for edema or other findings Neuro oriented x3 and CN's II-XII intact bilaterally Sensorium / Orientation: alert Psych mental status grossly normal Skin no rashes or lesions noted, no wounds and skin turgor normal Skin Narrative: Patient is diaphoretic. She feels warmer than 100 and 0.2 ?F General Skin Exam: elasticity normal; Negative for jaundice or pallor MDM MDM MDM Narrative Medical decision making narrative: Symptoms are not suggestive or consistent with autoimmune disorder. This is more likely an infectious process and most likely viral. Patient was informed even though she was tested for COVID and influenza there are 25 other viruses that could be the cause of her symptoms. Lab Data Attestation: I reviewed the patient's lab results. Lab results narrative: White count is elevated 16.6. There is a slight shift. There is no bandemia. There is evidence of anemia with normal indices. Labs: Laboratory Results - last 24 hr 11/23/24 00:00 WBC 16.6 H RBC 4.26 Hgb 11.9 L Hct 35.3 L MCV 82.9 MCH 27.9 MCHC 33.7 RDW Std Deviation 41.8 RDW Coeff of Rick 14.0 Plt Count 283 MPV 10.1 Immature Gran % (Auto) 1.700 H Neut % (Auto) 84.8 H Lymph % (Auto) 5.7 L Burt % (Auto) 7.2 Eos % (Auto) 0.2 Baso % (Auto) 0.4 Absolute Neuts (auto) 14.1 H Absolute Lymphs (auto) 0.95 Nucleated RBC % 0 Sodium 134 Potassium 3.3 Chloride 100 Carbon Dioxide 19.1 L Anion Gap 14 BUN 7 Creatinine 0.68 L Estim Creat Clear Calc 127.79 Est GFR (MDRD) Non-Af 119 BUN/Creatinine Ratio 10.1 Glucose 120 H Calcium 7.9 Total Bilirubin 0.27 AST 20 ALT 18 Alkaline Phosphatase 89 Total Protein 7.0 Albumin 3.6 Globulin 3.4 Albumin/Globulin Ratio 1.1 Radiography Chest X-Ray - ED: 2 View, Read by ED Physician ([id number]), Normal, Heart, Lungs, Mediastinum, Bony Structures and No Acute Disease Diagnostic Testing: Clinical Impression(s) from Imaging Studies Chest X-Ray 11/23/24 00:20 IMPRESSION: No acute chest findings. Reading Location: [place] [id number] Treatment and Re-Evaluation Comments:: Patient was told the results. She was told that this most likely represents a viral illness. If she continues to have symptoms greater than 7 to 10 days she will need to see her doctor for a workup for fever of unknown source. Discharge Plan Triage Chief Complaint: General Illness ED Provider: Tommy Isbell Dx/Rx/DC Orders Clinical Impression: Systemic viral illness, Fever in adult, Tachycardia, Tachypnea, Leukocytosis Instructions: ED Viral Syndrome (Adult) Prescriptions: No Action methylprednisolone [Medrol (Po)] 4 mg tablets,dose pack See Rx Instructions PO PER PKG DIR Qty: 21 0RF Rx Instructions: PO PER PKG DIR benzonatate 200 mg capsule 200 mg PO TID PRN (Reason: cough) Qty: 20 0RF sulfamethoxazole-trimethoprim [Bactrim DS] 800-160 mg tablet 1 tab PO Q12H 7 Days Qty: 14 0RF ondansetron HCl 8 mg tablet 8 mg PO Q8H PRN (Reason: nausea and vomiting) Qty: 14 0RF Nurtec ODT 75 mg tablet,disintegrating 75 mg PO QODAY PRN (Reason: migraine headache) ibuprofen 600 MG tablet 600 mg PO Q6H PRN PRN (Reason: Pain) Qty: 20 0RF Primary Care Provider: Zackary Wood Referrals: Zackary Wood, [employer] [Primary Care Provider] - 1 Week if not improving Activity Restrictions/Additional Instructions: 1. Take 4 ibuprofen tablets every 8 hours for the next 24 to 48 hours. 2. Increase your fluid intake 3. If anything changes do not hesitate to return or follow-up with your provider Zackary Wood. Print Language: Samoan Disposition Disposition: Home, Self Care
[2024-11-23 00:43] LABS: AST(SGOT) 20 U/L (<=31); Alanine Aminotransfer ALT/SGPT 18 U/L (<=34); Albumin, Serum 3.6 g/dL (3.5-5.0); Alkaline Phosphatase 89 U/L (35-104); Anion Gap 14 (5-15); BUN 7 mg/dL (4-19); BUN/Creat Ratio 10.1 RATIO (10-20); Calcium,Total 7.9 mg/dL (7.6-11.0); Carbon Dioxide 19.1 mmol/L (21.0-32.0); Chloride 100 mmol/L (98-108); Estimated Creatinine Clearance 127.79 ml/min (50-250); Globulin 3.4 g/dL (2.2-4.2); Glucose 120 mg/dL (70-99); Potassium 3.3 mmol/L (3.3-5.1)
[2024-11-23 01:42] VITALS: BP 120/77; PULSE 87; RESP 18; TEMP 37.5; O2SAT 98
== END 2024-11-23 01:43 | disposition home or self-care (01) ==
PROVIDERS: Emergency Provider Emergency Medicine; PCP Nurse Practitioner Family; Visit Provider Emergency Medicine
DX: B34.9 Viral infection, unspecified (principal); R00.0 Tachycardia, unspecified; M54.50 Low back pain, unspecified; R06.82 Tachypnea, not elsewhere classified; D72.829 Elevated white blood cell count, unspecified; R51.9 Headache, unspecified; F17.210 Nicotine dependence, cigarettes, uncomplicated; R50.9 Fever, unspecified
CPT/HCPCS: 71046; 80053; 85025; 96361; 96374; 99284; A4216

== ENCOUNTER → 2024-11-23 | Outpatient (CLI) | payer MEDICAID, SELFPAY ==
--- OUTSIDE RECORDS SUMMARY | 2024-11-23 14:28 | XMS RPT_ITS | CCD ---
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 syndrome G56.03 Assessment and Plan Assessment and Plan (1) Bilateral carpal tunnel syndrome: Status: Acute Plan: NAZANIN HILL is a 29 year old F [...] I 07/12/24 1322 Date Thomas Kamara MD [facility] Signature: Date (if applicable) CC: Normal [facility] Discharge Instructionon 06-22 Discharge Instruction [facility] Medical Records Department [address] [place] [address] Instructions for Home/Discharge Instructions 07/10/24 1038 MR#: [id number] Acct: [id number] Name: NAZANIN HILL Rep #: [id number] : 1995 29 From: Thomas Kamara MD PCP: CHAR Sanon Status:REG [facility] [place] Discharge Instructions Diet Discharge Diet: No restrictions [...] Thomas Kamara Primary Care Provider: Zackary Wood Instructions Print Language: Slovak Discharge Orders/Prescriptions Prescriptions: No Action ibuprofen 600 MG tablet 600 mg PO Q6H PRN PRN (Reason: Pain) Qty: 30 0RF naproxen [Naprosyn] 500 mg tablet 500 mg PO BID PRN (Reason: pain) Qty: 20 0RF Nurtec ODT 75 mg tablet,disintegrating 75 mg PO QODAY PRN (Reason: migraine headache) Referrals / Follow Up: Zackary Wood, FINGERNAIL SCULPTURER-C [Primary Care Provider] - Thomas Kamara MD [Med Staff - Active Staff] - Disposition Disposition (needs filled in before D/C Order can be placed): Home, Self Care 07/10/24 1039 Thomas Kamara MD CC: FINGERNAIL SCULPTURER-C Zackary Wood Signed [facility] MR/POSTOP.[facility] 07-10-2024 MR/POSTOP.[facility] Medical Records Department [address] [place] [address] Anesthesia Postop Eval I 07/10/24 1043 MR#: [id number] Acct: [id number] Name: NAZANIN HILL Rep #: [id number] : 1995 29 From: Bimal Riddle CRNA PCP: CHAR Sanon Status:[facility] Y Race: C Location: [facility] [place] Anesthesia: Postop Eval I Current Vital Signs [...] completed: Yes 07/10/24 1432 Date Bimal Riddle SPORTS CARTOONIST Cosigner Signature: Date CC: Signed Normal [facility] MR/[id number] 07-10-2024 [facility] Medical Records Department [address] [place] [address] Anesthesia Postop Eval II 07/10/24 1145 MR#: [id number] Acct: [id number] Name: NAZANIN HILL Rep #: [id number] : 1995 29 From: Ct Handy PCP: CHAR Sanon Status:REG [facility] [place] Y Race: C Location: [address] Anesthesia Postop Eval I Sum Postop Eval Completion status Anesthesia document: Postop Eval 1 completed: Yes Anesthesia Postop Eval I Summary Anesthesia Postop Eval I Summary: Anesthesia Postop Eval I: Assessment Summary Airway patent Yes 07/10/24 10:44 SPORTS CARTOONIST.JRIV Spontaneous unlabored Yes 07/10/24 10:44 SPORTS CARTOONIST.JRIV respirations Mental status Awake,Calm 07/10/24 10:44 SPORTS CARTOONIST.JRIV nausea No 07/10/24 10:44 SPORTS CARTOONIST.JRIV Vomiting No 07/10/24 10:44 SPORTS CARTOONIST.JRIV Anesthesia Postop Eval I: Fluid Summary Crystalloid volume administer 800 07/10/24 10:44 SPORTS CARTOONIST.JRIV (ml) Colloids volume administered ( ml) Blood Product volume administered (ml) Total IV fluid infused 800 07/10/24 10:44 SPORTS CARTOONIST.JRIV Anesthesia Postop Eval I: Summary Notes Anesthesia Complication No 07/10/24 10:44 SPORTS CARTOONIST.JRIV Anesthesia Complication Comment: Post-operative progress note Anesthesia: Postop Eval II Evaluation Mental status: Awake and Calm Pain Level: 1 nausea: No Vomiting: No 07/10/[address] Rudolph Signature: Date CC: Signed Normal [facility] Operative Reporton 5 Operative Report [facility] Medical Records Department [address] [place] [address] Operative Report 07/10/24 1035 MR#: [id number] Acct: [id number] Name: NAZANIN HLIL MARCIAL Rep #: [id number] : 1995 29 From: Thomas Kamara MD PCP: CHAR Sanon Status:[facility] Location: [place] [address] Problems Associated Problem List Diagnoses (1) Bilateral carpal tunnel syndrome: Procedures Musculoskeletal 20xxx-29xxx: Other Procedure See Report Operative Report (Standard) Operative Information Date of Procedure: 07/10/24 Pre-Operative Diagnosis: Bilateral carpal tunnel syndrome Post-Operative Diagnosis: Same Surgery/Procedure Performed: Bilateral endoscopic carpal tunnel release sewer inspector: Yes Cook Manager: colton Tasks completed by first aid officer: Retracting Additional therapist's assistant?: No Type of Anesthesia: Local MAC [...] to 250 mmHg. I used the [employer] [place] endoscopic carpal tunnel kit / technique. I [...] hand and elbow no heavy lifting. cpt 27779 x2 Surgical Findings: as above Complications Complications: No Admit VTE Documentation VTE Present on Admission: No VTE Mechan Device Prophylaxis: SCD's VTE Pharm Prophylaxis ordered?: No Reason prophylaxis not ordered: Treatment Not Indicated 07/10/24 1037 Cosigner Signature (if applicable): CC: CHAR Wood; Dr. Thomas Kamara MD Signed Normal [facility] ,Urineon 07-10-2024 Beta HCG ( test) Ql (U) Negative Normal [facility] Comment on above: Result Comment: Very dilute urine specimens, as indicated by a low specific gravity, may not contain operations support representative levels of hCG. If is still suspected, a first morning urine specimen should be collected 48 hours later and tested. Performed By: #### L 400.7600 ####[facility] [id number] [place], [address] Urine testOrdered By: Valdo Louis on 07-10-2024 HCG ( test) Ql (U) Negative [facility] Comment on above: Very dilute urine sp ecimens, as indicated by a low specificgravity, may not contain operations support representative levels of hCG. If is still suspected, a first morning urinespecimen should be collected 48 hours later and tested. Orthopedic Visit Reporton Orthopedic Visit Report [facility] [address] [place] [address] [address] [place] [address] OFFICE VISIT Date of Service: 05/21/24 MR#: [id number] Acct: [id number] Name: NAZANIN HILL Rep #: [id number] : 1995 Provider: Dr. Thomas mohamud MD Age/Sex: 28/F Location: [facility] [place].CON Status: Signed Intake Vital Signs 02/19/24 16:37 [...] by me, Dr. Thomas Kamara MD 05/21/24 6845. Part of today???s visit was documented by [ ], acting as scribe. NAZANIN HILL is a 28 year old F here today for bilateral carpal tunnel syndrome 1.5 yrs. RHD. worse thumb index and middle fingers. trying night splinting not working. 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 worse at night. Supplemental Info [facility] Pulmonary Services/Neurology [address] [place] [address] MR#: [id number] Acct: [id number] Name: NAZANIN HILL Rep #: [id number] : 1995 28 From: Jessica Winters MD Referring Dr: Zackary Wood [facility] FINGERNAIL SCULPTURER-C Status: REG CLI Location: PSN Date: 01/03/24 Sex: F C NCS and/or EMG Patient Report Ordering Doctor: Zackary Wood [facility] DATE OF SERVICE: 01/03/24 Nazanin presents with complaints of numbness and weakness [...] Multi Select Codes Neurology Neurology Interp Codes: 01014-13 Musc test done w/n test comp (interp) (2) and 38345-21 Nrv cndj test 13/> studies (interp) Coding [...] They pref (more content not included)... Normal [facility] Urgent Care Visit Reporton 1 06-25-2023 Urgent Care Visit Report [facility] [address] , [address] [place], [place] [id number] [phone] OFFICE VISIT Date of Service: 04/24/24 MR#: [id number] Acct: [id number] Name: NAZANIN HILL Rep #: [id number] : 1995 Provider: SOLEDAD Dickens Age/Sex: 28/F Location: [facility] [place].[facility] Status: Signed Intake Vital Signs 02/19/24 16:37 [...] Complaint: BA, ST, cough, diarrhea, congest, fever Netting Inspector Required: No Is patient in pain?: No Allergies No Known Allergies Allergy (Verified 04/24/24 09:44) Is last menstrual period known: No Post menopausal: No Patient : No Have you fallen in the past year?: No Nurse's Note: BA, ST, cough, diarrhea, congest, fever x 24 hours. 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 [facility] Medical History (Updated 02/19/24 @ 17:11 by [...] BA, ST, cough, diarrhea, congest, fever Details: NAZANIN HILL, is a 28 F who presents to the office today for initial evaluation at the [facility] for approximately 36-hour history of myalgias, sore throat, cough, diarrhea, congest, fever. No complaints of chest pain or shortness of breath or dyspnea on exertion. No hwmp-wij-iracqap products taken to assist. Several close contacts [...] Patient aware of isolation recommendations and [facility] department notification. Follow-up with PCP in 5 to 7 days should symptoms not improve, ED sooner should symptoms worsen or any other concerns develop. Patient states acknowledging understanding all the above Results POC SARS AG POC SARS AG Positive Last Edit by Meagan Dey (more content not included)... Normal [facility] Urgent Care Visit Reporton 0 02-19-2024 Urgent Care Visit Report [facility] [address], [address] [place] [address] OFFICE VISIT Date of Service: 02/19/24 MR#: [id number] Acct: [id number] Name: NAZANIN HILL Rep #: [id number] : 1995 Provider: SOLEDAD Suarez Age/Sex: 28/F Location: [facility] [place] Status: Signed Intake Vital Signs 12/28/22 17:34 [...] EAR PAIN Chief Complaint: bilat ear pressure/popping Netting Inspector Required: No Is patient in pain?: No Allergies No Known Allergies Allergy (Verified 02/19/24 16:38) Is last menstrual period known: No Post menopausal: No Patient : No Have you fallen in the past year?: No Nurse's Note: bilat ear pressure/popping/decr eased hearing. s/s x 2 1/2 weeks after recent viral illness. all other s/s have resolved [facility] Medical History (Updated 02/19/24 @ 17:11 by SOLEDAD Gan) Anxiety Surgical History delivery delivered Hx of appendectomy History of tonsillectomy Family History Grandmother Diabetes Social History Smoking Status: Current some day smoker tobacco type: cigarettes alcohol intake: never substance use type: does not use caffeine: Yes frequency: 1-2 times per week seatbelt use: always do you feel safe at home: Yes additional social history: Single- [employer] [facility] HPI Chief Complaint: bilat ear pressure/popping Details: NAZANIN HILL, is a 28 F who presents [...] fallen in the past year?: No 02/19/24 1714 Date Raheem ROWE Cosigner Signature: Date (if applicable) CC: Normal [facility] Brain W/WO Contraston 2023 Brain W/WO Contrast [facility] [address] [place] [address] Brain W/WO Contrast MR#: [id number] Acct: [id number] Name: NAZANIN HILL MARCIAL Rep #: [id number] : 1995 F 28 From: Del sanchez MD PCP: CHAR Sanon Status: REG CLI Study: Brain W/WO Contrast Date of Exam: 01/30/24 Exam# [id number] Ordering Dr: Zackary Wood [facility] FINGERNAIL SCULPTURER-C [id number] STUDY: MRI BRAIN WITH AND WITHOUT CONTRAST [...] 9:46 EDT Reading Location ID and State: [facility] / [place] , Service support , CC: FINGERNAIL SCULPTURER-C Zackary Wood Instrument Assembler: Signed Normal [facility] NCS and/or EMG Patienton NCS and/or EMG Patient [facility] Pulmonary Services/Neurology [address] [place] [address] MR#: [id number] Acct: [id number] Name: NAZANIN HILL Rep #: [id number] : 1995 28 From: Jessica Winters MD Referring Dr: Zackary Wood [facility] FINGERNAIL SCULPTURER-C Status: REG C LI Location: [facility] Date: 01/03/24 Sex: F C NCS and/or EMG Patient Report Ordering Doctor: Zackary Wood Florina DATE OF SERVICE: 01/03/24 Nazanin presents with complaints of numbness and weakness [...] Multi Select Codes Neurology Neurology Interp Codes: 10166-71 Musc test done w/n test comp (interp) (2) and 45333-82 Nrv cndj test 13/> studies (interp) 01/03/24 1513 Date Jessica Winters MD CC: FINGERNAIL SCULPTURER-C Zackary Wood; Dr. Jessica Winters MD Date Dictated: 01/03/241510 Date Transcribed: 01/03/241510 Instrument Assembler: AA Signed Normal [facility] DIAGNOSTIC BILon 021 [facility] DIAGNOSTIC [facility]A * * *Final Report* * * DATE OF EXAM: Mar 10 2021 1:37PM [facility] 0620 - [facility] DIAGNOSTIC [facility]A / PROCEDURE REASON: multiple diagnoses * * * * Physician Interpretation * * * * RESULT: #[id number] - [facility] DIAG[facility]STIC [facility] BILATERAL DIGITAL DIAGNOSTIC MAMMOGRAM [...] is no mammographic evidence of malignancy. Tomas miller/benigno:03/10/2021 13:57:16 Advertising Clerk(s): RT Frank(R)(M), [facility] Mammogram BI-RADS: 2 Benign finding Multiple national specialty organizations have released breast cancer screening guidelines for women at average risk for developing breast cancer - guidelines that are based on both evidence and opinion, yet differ on when to start and how often to screen for breast cancer. With representation from Breast Imaging, Internal Medicine, Women's Health, Family Medicine, and Medical/Surgical Oncology, the [facility] has carefully reviewed the data and reached [...] their providers when to stop screening mammograms. Instrument Assembler: Benigno Transcribe Date/Time: Mar 10 2021 1:22P Dictated by: TOMAS RAI MD This examination was interpreted and the report reviewed and electronically signed by: TOMAS RAI MD on Mar 10 2021 1:57PM EST [id number] Normal [facility] US BREAST LTD LTon 03-10 [facility] US BREAST LTD LT * * *Final Report* * * DATE OF EXAM: Mar 10 2021 1:12PM [id number] [id number] - [facility] US BREAST LTD LT / PROCEDURE REASON: multiple diagnoses * * * * Physician Interpretation * * * * #[id number] - ANGY US BREAST LTD LT LIMITED ULTRASOUND OF LEFT BREAST: 03/10/2021 HISTORY: Multiple Diagnoses. RESULT: Comparison is made to exam dated: 03/10/2021 mammogram - [facility]. Real-time ultrasound of the left breast 12-6 o'clock, and retroareolar regions was performed. Avila scale images of the real-time examination were reviewed. IMPRESSION: NEGATIVE There is no sonographic evidence of malignancy. There is no abnormality seen in the left breast to correspond with the nipple abnormality (retraction) and pain, however, clinical followup is recommended. Tomas bruceg/:03/10/2021 14:02:19 Advertising Clerk(s): Breana Pacheco [facility] Ultrasound BI-RADS: 1 Negative Multiple national specialty organizations have released breast cancer screening guidelines for women at average risk for developing breast cancer - guidelines that are based on both evidence and opinion, yet differ on when to start and how often to screen for breast cancer. With representation from Breast Imaging, Internal Medicine, Women's Health, Family Medicine, and Medical/Surgical Oncology, the [facility] has carefully reviewed the data and reached [...] their providers when to stop screening mammograms. Instrument Assembler: Benigno Transcribe Date/Time: Mar 10 2021 1:12P Dictated by : TOMAS RAI MD This examination was interpreted and the report reviewed and electronically signed by: TOMAS RAI MD on Mar 10 2021 2:02PM EST [id number] Normal [facility] CNOVon 03-04-2021 CNOV Office Visit (OBGYWM ) NAZANIN HILL ([id number]) 1995 F Date Time Provider Department 03/04/21 8:30 AM CANDICE CANTU During your visit today, we recorded the following information about you: Blood pressure Weight Last Period 122/68 71.5 kg 03/02/21 Candice Cantu APRN.WOOD MECHANIST 03/04/2021 9:04 AM Signed Nazanin Hill is a 25 year old OB [...] ICD9: 611.71, ICD10: N64.4 (primary diagnosis) - [facility] DIAGNOSTIC LT - US BREAST LTD LT Given breast pain instructions. 2. Inverted nipple - ICD9: 611.79, ICD10: N64.59 - [facility] DIAGNOSTIC LT - US BREAST LTD LT Will notify of results. Follow- up as needed. Candice Cantu APRN.CNP Medical Decision Making: Problems: Moderate: New problem [...] or sports (not underwire) bra. ? Take rccb-vwt-dnbmseb ibuprofen (Advil/Motrin) or other NSAIDs, such as naproxen (Aleve). ? Take 3 grams (3000 mg.) of evening primrose oil (available wnki-uom-rdcvtbp) in divided doses for 2 months. ? Take warm showers. ? Use warm compresses. Referring Provider: SELF [200] Allergies As of Date: 03/04/2021 (No Known Allergies) Date Reviewed: 03/04/2021 Reviewed by: Candice Cantu APRN.CNP - Fully Assessed Reason for Visit: left breast pain [Other] Cmt: nipple inverted, larger than right Primary Visit Diagnosis:Breast pain, left [N64.4] Other Visit Diagnosis:Inverted nipple [N64.59] Order(s):[facility] DIAGNOSTIC LT [[id number]] Order #: [id number] [facility] BREAST LTD LT [[id number]] Order #: [id number] Prescriptions as of 03/04/2021 - levonorgestrel (MIRENA) [...] or sports (not underwire) bra. ? Take xyiy-ajd-ssygtld ibuprofen (Advil/Motrin) or other NSAIDs, such as naproxen (Aleve). ? Take 3 grams (3000 mg.) of evening primrose oil (available plpz-jll-mvodeop) in divided doses for 2 months. ? Take warm showers. ? Use warm compresses. Encounter Status:Closed by CANDICE CANTU on 03/04/21 Normal [facility] Singh Replaced Document: (P) PAP I -G w/rfx hrHPVon 01-14-2017 GE use only - for LinkLogic import when terms are not otherwise specified Comment Invalid Interpretation Code . [facility] HPV RFLX Comment . [facility] Microbiology: (P) Culture, G enital Comprehensiveon 01-12-2017 GE use only - for LinkLogic import when terms are not otherwise specified . Invalid Interpretation Code [facility] Work Phone: Microbiology: (P) Culture, G enital Comprehensiveon 01-11-2017 GE use only - for LinkLogic import when terms are not otherwise specified . Invalid Interpretation Code [facility] Work Phone: Office Visit: [facility] gynon 12-21 Documentation of current medications (procedure) Done Invalid Interpretation Code [facility] Fall risk assessment No Invalid Interpretation Code [facility] Protein mass conc yes [facility] Protein mass conc Done [facility] Smoking cessation education (procedure) yes Invalid Interpretation Code [facility] Tobacco smoking status MTIS Current Invalid Interpretation Code [facility] Tobacco smoking status NHIS Current every day smoker [facility] Tobacco use HS Current every day smoker Invalid Interpretation Code [facility] Office Visit: [facility] gynon 0 General categories [Interpretation] of Cervical or vaginal smear or scraping by Cyto stain Normal Invalid Interpretation Code [facility] Vital Signs Date Time Vital Sign Value Performing Clinician Facility 11-23-2024 01:42-0400 Body temperature 99.5 [degF] Zackary PARDO Work Phone: [facility] 11-23-2024 01:42-0400 Diastolic blood pressure 77 mm[Hg] Zackary PARDO Work Phone: 1(011)145-626815 [place] [address] 11-23-2024 01:42-0400 Heart rate 87 /min Zackary Wood FINGERNAIL SCULPTURER-C Work Phone: 5(489)414-385315 [place] [address] 11-23-2024 01:42-0400 Respiratory rate 18 /min Zackary Wood FINGERNAIL SCULPTURER-C Work Phone: 8(609)136-405315 [place] [address] 11-23-2024 01:42-0400 SaO2% (BldA) [Mass fraction] 98 % Zackary Wood FINGERNAIL SCULPTURER-C Work Phone: 5(363)[phone] [place] [address] 11-23-2024 01:42-0400 Systolic blood pressure 120 mm[Hg] Zackary Wood FINGERNAIL SCULPTURER-C Work Phone: 6(753)811-235415 [place] [address] 11-22-2024 23:54-0400 Body height 165.1 cm Zackary Wood FINGERNAIL SCULPTURER-C Work Phone: 4(814)143-765615 [place] [address] 11-22-2024 23:54-0400 Body mass index (BMI) [Ratio] 30.5 kg/m2 Zackary Wood FINGERNAIL SCULPTURER-C Work Phone: 9(859)969-839115 [place] [address] 11-22-2024 23:54-0400 Body weight 83.32 kg Zackary Wood FINGERNAIL SCULPTURER-C Work Phone: 9(727)145-389215 [place] [address] 11-22-2024 12:55-0400 Body temperature 98.4 [degF] Zackary Wood FINGERNAIL SCULPTURER-C Work Phone: 0(265)[phone] [place] [address] 11-22-2024 12:55-0400 Diastolic blood pressure 84 mm[Hg] Zackary Wood FINGERNAIL SCULPTURER-C Work Phone: 0(656)296-416215 [place] [address] 11-22-2024 12:55-0400 Heart rate 88 /min Zackary Wood FINGERNAIL SCULPTURER-C Work Phone: [phone])[phone] [place] [address] 11-22-2024 12:55-0400 Respiratory rate 16 /min Zackary Wood FINGERNAIL SCULPTURER-C Work Phone: 0(727)[phone] [place] [address] 11-22-2024 12:55-0400 SaO2% (BldA) [Mass fraction] 98 % Zackary Wood FINGERNAIL SCULPTURER-C Work Phone: 1(521)[phone] [place] [address] 11-22-2024 12:55-0400 Systolic blood pressure 122 mm[Hg] Zackary Wood FINGERNAIL SCULPTURER-C Work Phone: 2([phone])[phone] [place] [address] 11-18-2024 12:06-0400 Body temperature 98.9 [degF] Zackary Wood FINGERNAIL SCULPTURER-C Work Phone: 2(866)[phone] [place] [address] 11-18-2024 12:06-0400 Diastolic blood pressure 70 mm[Hg] Zackary Wood FINGERNAIL SCULPTURER-C Work Phone: 3(136)449-520315 [place] [address] 11-18-2024 12:06-0400 Heart rate 105 /min Zackary Wood FINGERNAIL SCULPTURER-C Work Phone: 5(211)[phone] [place] [address] 11-18-2024 12:06-0400 Respiratory rate 16 /min Zackary Wood FINGERNAIL SCULPTURER-C Work Phone: 3(345)130-616515 [place] [address] 11-18-2024 12:06-0400 SaO2% (BldA) [Mass fraction] 98 % Zackary Wood FINGERNAIL SCULPTURER-C Work Phone: 2(842)087-838115 [place] [address] 11-18-2024 12:06-0400 Systolic blood pressure 116 mm[Hg] Zackary Wood FINGERNAIL SCULPTURER-C Work Phone: 2(530)437-051315 [place] [address] 10-15-2024 16:00-0400 Body temperature 98 [degF] Zackary Wood FINGERNAIL SCULPTURER-C Work Phone: 7(446)395-185815 [place] [address] 10-15-2024 16:00-0400 Diastolic blood pressure 61 mm[Hg] Zackary Wood FINGERNAIL SCULPTURER-C Work Phone: 5(288)071-843915 [place] [address] 10-15-2024 16:00-0400 Heart rate 81 /min Zackary Wood FINGERNAIL SCULPTURER-C Work Phone: 6(579)855-530415 [place] [address] 10-15-2024 16:00-0400 Respiratory rate 14 /min Zackary Wood FINGERNAIL SCULPTURER-C Work Phone: 5(815)707-115915 [place] [address] 10-15-2024 16:00-0400 SaO2% (BldA) [Mass fraction] 97 % Zackary Wood FINGERNAIL SCULPTURER-C Work Phone: 0(477)219-950615 [place] [address] 10-15-2024 16:00-0400 Systolic blood pressure 138 mm[Hg] Zackary Wood FINGERNAIL SCULPTURER-C Work Phone: 4(145)884-384315 [place] [address] 10-15-2024 14:40-0400 Body height 165.1 cm Zackary Wood FINGERNAIL SCULPTURER-C Work Phone: 8(530)461-283815 [place] [address] 10-15-2024 14:40-0400 Body mass index (BMI) [Ratio] 30.2 kg/m2 Zackary Wood FINGERNAIL SCULPTURER-C Work Phone: 7(258)712-461615 [place] [address] 10-15-2024 14:40-0400 Body weight 82.41 kg Zackary Wood FINGERNAIL SCULPTURER-C Work Phone: 1(084)184-909315 [place] [address] 08-20-2024 11:21-0400 Body mass index (BMI) [Ratio] 17.9 kg/m2 Zackary Wood FINGERNAIL SCULPTURER-C Work Phone: 8(455)925-611115 [place] [address] 08-20-2024 11:21-0400 Body weight 48.98 kg Zackary Wood FINGERNAIL SCULPTURER-C Work Phone: 1(602)099-165215 [place] [address] 07-10-2024 11:25-0500 Body temperature 97.4 [degF] Zackary Wood FINGERNAIL SCULPTURER-C Work Phone: 0(175)252-889215 [place] [address] 07-10-2024 11:25-0500 Diastolic blood pressure 73 mm[Hg] Zackary Wood FINGERNAIL SCULPTURER-C Work Phone: 8(870)925-687615 [place] [address] 07-10-2024 11:25-0500 Heart rate 82 /min Zackary Wood FINGERNAIL SCULPTURER-C Work Phone: 8(232)964-479415 [place] [address] 07-10-2024 11:25-0500 Respiratory rate 16 /min Zackary Wood FINGERNAIL SCULPTURER-C Work Phone: 6(141)270-872815 [place] [address] 07-10-2024 11:25-0500 SaO2% (BldA) [Mass fraction] 100 % Zackary Wood FINGERNAIL SCULPTURER-C Work Phone: 5(104)858-283115 [place] [address] 07-10-2024 11:25-0500 Systolic blood pressure 125 mm[Hg] Zackary Wood FINGERNAIL SCULPTURER-C Work Phone: 8(570)708-306515 [place] [address] 07-10-2024 07:47-0500 Body mass index (BMI) [Ratio] 31.5 kg/m2 Zackary Wood FINGERNAIL SCULPTURER-C Work Phone: 9(301)302-148515 [place] [address] 07-10-2024 07:47-0500 Body weight 86 kg Zackary Wood CHAR Work Phone: [facility] 12-28-2022 20:35-0400 Diastolic blood pressure 86 mm[Hg] [facility] 12-28-2022 20:35-0400 Heart rate 76 /min [facility] 12-28-2022 20:35-0400 Respiratory rate 16 /min [place] 12-28-2022 20:35-0400 SaO2% (BldA) [Mass fraction] 99 % [facility] 12-28-2022 20:35-0400 Systolic blood pressure 136 mm[Hg] [facility] 12-28-2022 17:34-0400 Body height 160.02 cm [facility] 12-28-2022 17:34-0400 Body mass index (BMI) [Ratio] 28.3 kg/m2 [facility] 12-28-2022 17:34-0400 Body temperature 97.6 [degF] [place] 12-28-2022 17:34-0400 Body weight 72.62 kg [facility] 12-27-2022 21:17-0400 Heart rate 65 /min [facility] 12-27-2022 21:17-0400 Respiratory rate 18 /min [place] 12-27-2022 21:17-0400 SaO2% (BldA) [Mass fraction] 97 % [facility] 12-27-2022 18:18-0400 Body height 160.02 cm [facility] 12-27-2022 18:18-0400 Body mass index (BMI) [Ratio] 29.5 kg/m2 [facility] 12-27-2022 18:18-0400 Body temperature 97.2 [degF] [place] 12-27-2022 18:18-0400 Body weight 75.65 kg [facility] 12-27-2022 18:18-0400 Diastolic blood pressure 89 mm[Hg] [facility] 12-27-2022 18:18-0400 Systolic blood pressure 124 mm[Hg] [facility] 01-10-2017 09:18-0400 BMI (Body Mass Index) 25.57 kg/m2 Disha Loredo NP [facility] 01-10-2017 09:18-0400 Body Temperature 97.8 [degF] Disha Loredo FINGERNAIL SCULPTURER [facility] 01-10-2017 09:18-0400 Body Temperature 97.81 [degF] Disha Loredo FINGERNAIL SCULPTURER [facility] 01-10-2017 09:18-0400 BP Diastolic 75 mm[Hg] Disha Loredo FINGERNAIL SCULPTURER [facility] 01-10-2017 09:18-0400 BP Systolic 125 mm[Hg] Disha Loredo FINGERNAIL SCULPTURER [facility] 01-10-2017 09:18-0400 Height 162.56 cm Disha Loredo NP [facility] 01-10-2017 09:18-0400 Pulse (Heart Rate) 80 /min Disha Loredo NP [facility] 01-10-2017 09:18-0400 Respiratory Rate 16 /min Disha Loredo NP [facility] 01-10-2017 09:18-0400 Weight 67.59 kg Disha Loredo NP [facility] 01-10-2017 09:18-0400 Weight 67.58 kg Disha Loredo FINGERNAIL SCULPTURER [facility] Encounters Encounter Date Encounter Type Care Provider Facility Start: 11-22-2024 End: 11-23-2024 Emergency department patient visit Zackary Wood FINGERNAIL SCULPTURER-C Work Phone: -Emergency Department Work Phone: Start: 11-22-2024 End: 11-22-2024 ambulatory Zackary Wood FINGERNAIL SCULPTURER-C Work Phone: [facility] Start: 11-22-2024 End: 11-22-2024 Patient encounter procedure Raheem Santiago PA -[facility] Work Phone: Start: 11-18-2024 End: 11-18-2024 Patient encounter procedure Uriel Sims PA -[facility] Work Phone: Start: 11-18-2024 End: 11-18-2024 ambulatory Zackary Wood FINGERNAIL SCULPTURER-C Work Phone: -[facility] Start: 10-15-2024 End: 10-15-2024 Emergency department patient visit Zackary Wood FINGERNAIL SCULPTURER-C Work Phone: -Emergency Department Work Phone: Start: 08-20-2024 End: 08-20-[address] Thomas Kamara MD -[facility] Work Phone: Start: 08-20-2024 End: 08-20-2024 ambulatory Zackary Wood VSC Facility:[facility] Start: 07-23-2024 End: 07-23-[address] Thomas Kamara [facility] Work Phone: Start: 07-23-2024 End: 07-23-2024 ambulatory Zackary Wood VS Facility:[facility] Start: 07-19-2024 Encounter for other preprocedural examination Thomas Kamara [facility] Start: 07-12-2024 End: 07-12-[address] Thomas Kamara MD -[facility] Work Phone: Start: 07-12-2024 End: 07-12-2024 ambulatory Zackary Wood VSC Facility:[facility] [place] [facility] Start: 07-10-2024 ambulatory Thomas Kamara Facility :[facility] Start: 07-10-2024 Non-patient / Non-visit Dr. Solitario Kamara MD -[facility] Start: 07-10-2024 End: 07-10-2024 Admission to same day surgery center Dr. Thomas Kamara [facility] Start: 07-10-2024 End: 07-10-2024 ambulatory Zackary Wood VSC Facility:[facility] Start: 05-21-2024 End: 05-21-2024 ambulatory Zackary Wood VSC Facility:[facility] Start: 04-24-2024 End: 04-24-2024 ambulatory Uriel ROWE Facility:[facility] Start: 02-19-2024 End: 02-19-2024 ambulatory Raheem ROWE Facility:[facility] Start: 01-30-2024 End: 01-30-2024 ambulatory Zackary Wood VS Facility:[facility] Start: 01-03-2024 ambulatory Jessica Winters Facility:[facility] Start: 01-03-2024 End: 01-03-2024 ambulatory Zackary Wood VSC Facility:[facility] Start: 12-28-2022 End: 12-28-2022 Emergency department patient visit [facility] Work Phone: Start: 12-27-2022 End: 12-27-2022 Emergency department patient visit [facility] Work Phone: Procedures Date Procedure Procedure Detail Performing Clinician Start: 11-23-2024 X-ray of chest, PA a nd lateral views Zackary Wood FINGERNAIL SCULPTURER-C Work Phone: Start: 11-23-2024 Estimated creatinine clearance Zackary Wood FINGERNAIL SCULPTURER-C Work Phone: Start: 10-15-2024 X-ray of ankle, thre e or more views Zackary Wood FINGERNAIL SCULPTURER-C Work Phone: Start: 12-28-2022 CT of lumbar [...] Treatment Date Care Activity Detail Author Start: 11-23-2024 [facility] Start: 10-15-2024 [facility] Start: 07-10-2024 Anes nerve muscle tdn fascia&bursa forearm wrist ANESTH LOWER ARM SURGERY [facility] Start: 07-10-2024 Ndsc wrst surg w/rls transvrs carpl ligm WRIST ENDOSCOPY/SURGERY [facility] Start: 07-10-2024 Patient discharge [facility] Start: 07-10-2024 Application of ice collar, cap or bag [facility] Start: 07-10-2024 Assessment of risk of venous thromboembolism [facility] Start: 07-10-2024 Catheterization of vein [facility] Start: 07-10-2024 Deep breathing and coughing exercises [facility] Start: 07-10-2024 Following clinical pathway protocol [facility] Start: 07-10-2024 Incentive spirometry [facility] Start: 07-10-2024 Introduction of urinary catheter [facility] Start: 07-10-2024 Patient education [facility] Start: 07-10-2024 Taking patient vital signs [facility] Start: 07-10-2024 Vital signs measurements [place] Start: 07-10-2024 End: 07-10-2024 [facility] Start: 07-10-2024 Medication education [facility] Start: 01-26-2017 End: 01-26-2017 Appointment Appointment [facility] Work Phone: Start: 01-10-2017 End: 01-10-2017 Appointment Appointment [facility] Start: 01-10-2017 End: 01-16-2017 Bacteria genital culture *CUV - Culture, VAG/CX Comprehensive [facility] Work Phone: Patient Education [facility] Work Phone: Patient referral [facility] Work Phone: [place] Immunizations Immunization Date Immunization Notes Care Provider Charlene molina 02-16-2018 influenza, injectabl e, quadrivalent, preservative free Zackary Wood FINGERNAIL SCULPTURER-C Work Phone: [facility] 02-16-2018 influenza, seasonal, injectable [facility] 12-05-2017 tetanus toxoid, redu reji diphtheria toxoid, and acellular pertussis vaccine, adsorbed [facility] Payers Date Payer Category Payer Self-pay [id number] 2023 Unknown [id number] 2014 Unknown [id number] 2014 Unknown [facility] [id number] Unknown [facility] D *DO NOT USE* [id number] Unknown [id number] Unknown [id number] Unknown [id number] [id number] Unknown [id number] [id number] Unknown [id number] [id number] Unknown [id number] [id number] Unknown [id number] [id number] Unknown [id number] [id number] Unknown [id number] [id number] Unknown [id number] [id number] Unknown [id number] [id number] Unknown [id number] [id number] Unknown [id number] [id number] Social History Date Type Detail Facility Start: 12-27-2022 End: 12-28-2022 Tobacco smoking status NHIS Unknown if ever smoked [facility] Start: 02-14-2018 None [facility] Start: 1995 Sex Assigned At Female [facility] Start: 10-15-2024 End: 11-23-2024 Tobacco smoking status NHIS Current some day smoker [facility] NEGATED: Highlighted row [facility] NEGATED: Highlighted row Not [facility] Goals Date Patient Goal Desired Activity /State Mental Status Date Assessment Result Facility 11-23-2024 Cognitive function Level Of Cons ciousness Awake;Alert;Appropriate;Follow s Commands [facility] Work Phone: 07-10-2024 Cognitive function Voice/Name [facility] Work Phone: 12-28-2022 Cognitive function Level Of Cons ciousness Awake;Alert;Appropriate [facility] Work Phone: Clinical Notes 03-04-2021 to 11-23-2024 Note Date & Type Note Facility 11-23-2024 Discharge summary [facility] 11-23-2024 Radiology Diagnostic study note [facility] [address] [place] [address] Chest PA and Lateral MR#: [id number] Acct: [id number] Name: ROBERTNAZANINALEIDA CEJA Rep #: [id number] : 1995 F 29 From: Ninoska Zacarias MD PCP: CHAR Sanon Status: REG ER Study:Chest PA and Lateral Date of Exam: 11/23/24 Exam# [id number] Ordering Dr: Karey Isbell MD PROCEDURE: CHEST PA AND LATERAL 11/23/2024 REASON FOR EXAM: COUGH AND FEVER TECHNIQUE: CHEST PA AND LATERAL COMPARISON: No FINDINGS: Normal heart size. Well inflated lungs. No consolidation, effusion, or pneumothorax. RAD/Chest PA and Lateral IMPRESSION: No acute chest findings. Reading Location: [facility] CC: FINGERNAIL SCULPTURER-C Zackary Wood; Dr. Tommy Isbell MD ~ Instrument Assembler: Signed [facility] 10-15-2024 Radiology Diagnostic study note [facility] [address] [place], [place] [id number] Ankle min 3 Views MR#: [id number] Acct: [id number] Name: NAZANIN HILL Rep #: [id number] : 1995 F 29 From: Francisco Tirado MD PCP: CHAR Sanon Status: PRE ER Study:Ankle min 3 Views Date of Exam: Exam# [id number] Ordering Dr: Florina Foster DO PROCEDURE: ANKLE [...] fracture or dislocation is seen. Reading Location: [place] [address] CC: CHAR Wood; Dr. Meaghan Foster DO ~ Instrument Assembler: Signed [facility] 09-19-2024 Hospital Discharge instructions Additional Instructions Ice and elevate ankle is much as possible. Wear air stirrup and use crutches as needed. You may also take Tylenol. [facility] Work Phone: 08-20-2024 Evaluation note Diagnosis Onset Date Resolution Bilateral carpal tunnel syndrome acute August 20, 2024 11:18am [facility] Work Phone: 1(387) 340-890504-01-2025 Evaluation note* Diagnosis Onset Date Resolution Status Admit Date Bilateral carpal tunnel syndrome acu te August 20, 2024 11:18am Contact with or suspected exposure to other viral communicable disease acute November 22, 2 025 12:34pm Cystitis acute November 22, 2024 12:34pm [facility] Work Phone: 1(402) 722-168103-04-2025 Evaluation note* Diagnosis Onset Date Resolution Status Admit Date Bilateral carpal tunnel syndrome acu te July 23, 2024 12:57pm Bilateral carpal tunnel syndrome acu te August 20, 2024 11:18am [facility] Work Phone: 1(608) 958-779602-19-2025 [facility] Medical Records Department [address] [place] [address] History Physical Exam 07/10/24 0937 MR#: [id number] Acct: [id number] Name: NAZANIN HILL Rep #: [id number] : 1995 29 From: Thomas Kamara MD PCP: CHAR Sanon Status:REG [facility] Location: [place] [address] HPI - General HPI Narrative NAZANIN HILL, is a 29 F who presents for bilat ECTRs. no change to h and p. rab post op instructions discussed. ok to proceed. both wrists marked. MR#: [id number] Acct: [id number] Name: NAZANIN HILL Rep #: [id number] : 1995 Provider: Dr. Thomas Kamara MD Age/Sex: 28/F Location: [facility] Status: Signed Intake Vital Signs 02/19/2416:37 05/21/2409:18 [...] documented by [ ], acting as scribe. NAZANIN HILL is a 28 year old F here today for bilateral carpal tunnel syndrome 1.5 yrs. RHD. worse thumb index and middle fingers. trying night splinting not working. 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 worse at night. Supplemental Info [facility]/Neurology [address] [place] [address] MR#: [id number] Acct: [id number] Name: NAZANIN HILL Rep #: [id number] : 1995 28 From: Jessica Winters MD Referring Dr: Zackary Wood [facility] FINGERNAIL SCULPTURER-C Status: REG CLI Location: PSN Date: 01/03/24 Sex: F C NCS and/or EMG Patient Report Ordering Doctor: Zackary Wood [facility] DATE OF SERVICE: 01/03/24 Nazanin presents with complaints of numbness and weakness [...] Multi Select Codes Neurology Neurology Interp Codes: 88193-01 Musc test done w/n test comp (interp) (2) and 24584-55 Nrv cndj test 13/> studies (interp) Coding Level of Care Code Off vis,new,level 3 Diagnoses Bilateral carpal tunnel syndrome G56.03 Assessment and Plan Assessment and Plan (1) Bilateral carpal tunnel syndrome: Status: Acute Plan: 30 (more content not included)...[facility]02-19-2025 Evaluation note* Diagnosis Onset Date Resolution Status Admit Date Bilateral carpal tunnel syndrome acute July 10, 7:27am Bilateral carpal tunnel syndrome acute July 12 1:02pm Bilateral carpal tunnel syndrome acute July 23, 2024 12:57pm Bilateral carpal tunnel syndrome acute August 20, 2024 11:18am [facility] Work Phone: 1(871) 128-401710-20-2021 NoteHNO ID: [id number] Author: RT Frank(R) Service: ? Author Type: Technologist Type: Progress Notes Filed: 03/10/2021 1:35 PM Note Text: Radiology Service Progress Note PATIENT NAME: Nazanin Hill DATE OF SERVICE: March 10, 2021 [...] BY: RT Frank(R) March 10, 2021 1:21 [facility]10-14-2021 NoteHNO ID: [id number] Author: Candice Cantu APRN.WOOD MECHANIST Service: ? Author Type: Nurse Practitioner Type: Progress Notes Filed: 03/04/2021 9:04 AM Note Text: Nazanin Hill is a 25 year old OB [...] ICD9: 611.71, ICD10: N64.4 (primary diagnosis) - [facility] - US BREAST LTD LT Given breast pain instructions. 2. Inverted nipple - ICD9: 611.79, ICD10: N64.59 - [facility] - US BREAST LTD LT Will notify of results. Follow- up as needed. Candice Cantu, MARÍA.WOOD MECHANIST Medical Decision Making: Problems: Moderate: New problem with uncertain prognosis Data: Unique test(s) ordered: 2 Medical Decision Making Level: 3 - [facility] summary Author Tommy Isbell [facility] Note Date/Time November 23, 2024 1:29a m [facility] Medical Records Department [address] [place] [address] Emergency Department Summary 11/23/24 MR#: [id number] Acct: [id number] Name: NAZANIN HILL Rep #:[id number] : 1995 29 From: Tommy Isbell MD PCP: CHAR Sanon Status:REG ER Location: ED HPI History of Present Illness Chief Complaint: General Illness Detail of Chief Complaint: Onset of illness Monday, November 18 with waxing and waning fever, mild cough e Informant: patient Onset/Context/Timing Onset: Days (Monday, November 18) Context: Sudden Onset Timing: Continuous and Waxes and wanes Quality: Fever, chills, slight cough, myalgias arthralgias Location: Generalized Current Severity: Moderate Maximum Severity: Severe Worsened by: Nothing Relieved by: Nothing Associated Symptoms Associated Symptoms: Nausea, decreased appetite Narrative Narrative: Patient is a 29-year-old female. Patient was seen by SOLEDAD Herzog on November 18. She was seen by Sinan Santiago today. Assessment for November 18 was contact with exposure to other viral diseases, upper respiratory infection. Patient wasprescribed a Medrol and antitussive. Recommendation was follow-up with PCP in o 7 days. Assessment in urgent care today is cystitis. Of note the patient has no urinary symptoms. She did have test for influenza, COVID that was negative. Reportedly UA was positive for UTI and started on Bactrim. UA was performed today and was positive for leukoesterase. Was negative for nitrites. There was no micro. Since she has no symptoms and there is no micro doubt diagnosis of cystitis. Patient does report headache. Denies photophobia or sonophobia. She denies runny nose, congestion, postnasal drainage sore throat. She denies ear pain or drainage. She does have a slight nonproductive cough. She denies abdominal pain, nausea, vomiting or diarrhea. She denies dysuria, frequency, urgency or hematuria. She reports low back pain and points to the lower paralumbar region and not flank. Patient was defensive when I asked why they thought UTI and she responded because I have back pain. Prior similar symptoms: Yes Recent Illness/Hospitalization: Yes [facility] Medical History Wears glasses Marijuana use Low iron Easy bruising Migraine headache Former smoker Bilateral carpal tunnel syndrome Home Medications ?Medication ?Instructions ?Recorded ?Last Taken ?Type rimegepant 75 mg disintegrating 75 mg PO QODAY PRN alexa faye 07/01/24 Unknown History tablet (Nurtec ODT) headache ibuprofen 600 mg tablet 600 mg PO Q6H PRN PRN Pain # 20 10/15/24 Unknown Rx TABLETS benzonatate 200 mg capsule 200 mg PO TID PRN cough #20 caps 11/18/24 Unknown Rx methylprednisolone 4 mg tablets in See Rx Instructions PO PER PKG DIR 11/18/24 Unknown Rx a dose pack (Medrol (Po)) #21 tabs ondansetron HCl 8 mg tablet 8 mg PO Q8H PRN nausea and 11/22/24 Unknown Rx vomiting #14 tabs sulfamethoxazole 800 1 tab PO Q12H 7 days #14 tab s 11/22/24 Unknown Rx mg-trimethoprim 160 mg tablet (Bactrim DS) Allergy/AdvReac Type Severity Reaction Status Date / Time No Known Allergies Allergy Verified 11/22/24 23:54 Family History Grandmother Diabetes Surgical History S/p [...] [employer] ROS ROS ED Constitutional Constitutional ED: Reports chills, fever(s) and sweats; Denies subjective or weight loss Eyes Eyes: Denies blurry vision, change in vision or diplopia ENT ENT ED: Denies ear pain, rhinorrhea or sore throat Cardiovascular Cardiovascular: Reports palpitations and racing heartbeat; Denies chest pain, orthopnea or paroxysmal nocturnal dyspnea Respiratory/Chest Respiratory/Chest: Reports cough; Denies dyspnea, dyspnea on exertion, orthopnea, paroxysmal nocturnal dyspnea or sputum Gastrointestinal Gastrointestinal: Denies abdominal pain, diarrhea or vomiting Genitourinary Genitourinary ED: Denies dysuria, hematuria or urinary frequency Musculoskeletal Musculoskeletal: Reports arthralgias, back pain and myalgias; Denies neck pain Integumentary Reports rash Neurologic Neurologic: Reports headache(s); Denies paresthesias or weakness Hematologic/Lymphatic Hematologic/Lymphatic: Reports systems reviewed and no addt'l complaints, exceptas documented EXAM Physical Exam Const Vital Signs: 11/22/24 23:54 11/23/24 00:05 Temperature 100.2 F H Temperature Source Oral Pulse Rate 118 H Respiratory Rate 20 H Respiratory Effort Normal Respiratory Pattern Normal Blood Pressure 130/82 H Blood Pressure Mean 98 Pulse Ox 98 Oxygen Delivery Method Room Air Positive well nourished and well developed Constitutional Narrative: She appears ill but not toxic. Vital signs remarkable for elevated blood pressure, heart rate, respiratory rate and temperature. Patient states her temperature at home prior to presentation was 102.3. She did take antipyretic. General Appearance ED: well developed; Negative for pallor HEENT Reports dry mucous membranes HEENT Narrative: Head is atraumatic normocephalic. Ears normal. TMs normal. Nares patent. Posterior pharynx out erythema or exudate. Mouth ED: Yes dry mucous membranes Mouth: dry mucous membranes Eyes PERRL and EOMs intact bilaterally Eyes Narrative: There is no photophobia. General Eye ED: Negative for pale conjunctiva or scleral icterus Neck no lymphadenopathy, supple and no JVD Neck Narrative: There is no cervical lymphadenopathy. Resp normal respiratory effort and clear to auscultation bilaterally Cardio regular rhythm, S1 normal heart sound, S2 normal heart sound and no murmurs Rate: tachycardic GI normal to inspection, nondistended, normoactive bowel sounds, non-tender, non-distended and no masses; Negative for hepatosplenomegaly Back/Spine no CVA tenderness Back/Spine Narrative: Low paralumbar discomfort. Extremity normal to inspection General Extremety ED: Negative for edema, tenderness or other findings General Extremity: Negative for edema or other findings Neuro oriented x3 and CN's II-XII intact bilaterally Sensorium / Orientation: alert Psych mental status grossly normal Skin no rashes or lesions noted, no wounds and skin turgor normal Skin Narrative: Patient is diaphoretic. She feels warmer than 100 and 0.2 ?F General Skin Exam: elasticity normal; Negative for jaundice or pallor MDM MDM MDM Narrative Medical decision making narrative: Symptoms are not suggestive or consistent with autoimmune disorder. This is more likely an infectious process and most likely viral. Patient was informed even though she was tested for COVID and influenza there are 25 other viruses that could be the cause of her symptoms. Lab Data Attestation: I reviewed the patient's lab results. Lab results narrative: White count is elevated 16.6. There is a slight shift. There is no bandemia. There is evidence of anemia with normal indices. Labs: Laboratory Results - last 24 hr 11/23/24 00:00 WBC 16.6 H RBC 4.26 Hgb 11.9 L Hct 35.3 L MCV 82.9 MCH 27.9 MCHC 33.7 RDW Std Deviation 41.8 RDW Coeff of Rick 14.0 Plt Count 283 MPV 10.1 Immature Gran % (Auto) 1.700 H Neut % (Auto) 84.8 H Lymph % (Auto) 5.7 L [place] % (Auto) 7.2 Eos % (Auto) 0.2 Baso % (Auto) 0.4 Absolute Neuts (auto) 14.1 H Absolute Lymphs (auto) 0.95 Nucleated RBC % 0 Sodium 134 Potassium 3.3 Chloride 100 Carbon Dioxide 19.1 L Anion Gap 14 BUN 7 Creatinine 0.68 L Estim Creat Clear Calc 127.79 Est GFR (MDRD) Non-Af 119 BUN/Creatinine Ratio 10.1 Glucose 120 H Calcium 7.9 Total Bilirubin 0.27 AST 20 ALT 18 Alkaline Phosphatase 89 Total Protein 7.0 Albumin 3.6 Globulin 3.4 Albumin/Globulin Ratio 1.1 Radiography Chest X-Ray - ED: 2 View, Read by ED Physician ([id number]), Normal, Heart, Lungs, Mediastinum, Bony Structures and No Acute Disease Diagnostic Testing: Clinical Impression(s) from Imaging Studies Chest X-Ray 11/23/24 00:20 IMPRESSION: No acute chest findings. Reading Location: [place] [id number] Treatment and Re-Evaluation Comments:: Patient was told the results. She was told that this most likely represents a viral illness. If she continues to have symptoms greater than 7 to10 days she will need to see her doctor for a workup for fever of unknown source. Discharge Plan Triage Chief Complaint: General Illness ED Provider: Tommy Isbell Dx/Rx/DC Orders Clinical Impression: Systemic viral illness, Fever in adult, Tachycardia, Tachypnea, Leukocytosis Instructions: ED Viral Syndrome (Adult) Prescriptions: No Action methylprednisolone [Medrol (Po)] 4 mg tablets,dose pack See Rx Instructions PO PER PKG DIR Qty: 21 0RF Rx Instructions: PO PER PKG DIR benzonatate 200 mg capsule 200 mg PO TID PRN (Reason: cough) Qty: 20 0RF sulfamethoxazole-trimethoprim [Bactrim DS] 800-160 mg tablet 1 tab PO Q12H 7 Days Qty: 14 0RF ondansetron HCl 8 mg tablet 8 mg PO Q8H PRN (Reason: nausea and vomiting) Qty: 14 0RF Nurtec ODT 75 mg tablet,disintegrating 75 mg PO QODAY PRN (Reason: migraine headache) ibuprofen 600 MG tablet 600 mg PO Q6H PRN PRN (Reason: Pain) Qty: 20 0RF Primary Care Provider: Zackary Wood Referrals: Zackary Wood, FINGERNAIL SCULPTURER-C [Primary Care Provider] - 1 Week if not improving Activity Restrictions/Additional Instructions: 1. Take 4 ibuprofen tablets every 8 hours for the next 24 to 48 hours. 2. Increase your fluid intake 3. If anything changes do not hesitate to return or follow-up with your provider Zackary Wood. Print Language: Slovak Disposition Disposition: Home, Self Care What to do if you have Problems For any increased pain, shortness of breath, bleeding, nausea or vomiting, chestpain, or any unexpected problems, contact your Primary Care Provider. Call [facility] ([phone]) or report to the closest Emergency Room. Call 911 if necessary. 11/23/24 0129 <Electronically signed by Tommy Isbell MD> Cosigner Signature (if applicable): CC: CHAR Wood ~ Signed [facility] Work Phone: Evaluation noteNo assessment information available [facility] Work Phone: Hospital Discharge instructionsAdditional Instructions 1. Take 4 ibuprofen tablets every 8 hours for the next 24 to 48 hours. 2. Increase your fluid intake 3. If anything changes do not hesitate to return or follow-up with your provider Zackary Wood.[facility] Work Phone: Reason for referral (narrative)No reason for referral information available[facility] Work Phone: Summary Purpose Family History Relationship Condition Age at Onset Recorded Date/T gilberto grandmother Diabetes mellitus Unknown Advance Directives Advance Directive Response Recorded Date/ Time Living Will No December 27, 2022 6:17pm Power of Case Picker No December 27 6:17pm Advance Directive Response Recorded Date/ Time Living Will No December 28, 2022 5:41pm Power of Case Picker No December 28 5:41pm Advance Directive Response Recorded Date/ Time Living Will No July 01 2:49pm Do you have a Healthcare Power of Case Picker? No July 01, 2024 2:49pm Do you have a Healthcare Power of Case Picker? No October 15, 2024 4:00pm Advance Directive Response Recorded Date/ Time Do you have a Healthcare Power of Case Picker? No October 15, 2024 4:00pm Advance Directive Response Recorded Date/ Time Do you have a Healthcare Power of Case Picker? No October 15, 2024 4:00pm Do you have a Healthcare Power of Case Picker? No November 23, 2024 12:05am Chief Complaint and Reason for Visit Chief [...] PAIN, LOW APPETITE November 22, 2024 12:34pm general illness November 22, 2024 11:53 pm Reason for Visit Admit Date Bilateral carpal tunnel syndrome August 202024 11:18am Contact with or suspected ex posure to other viral communicable disease November 22, 2024 12:34pm Cystitis November 22, 2024 12:34 pm Additional Source Comments INFORMATION SOURCE (unrecogn ized section and content) DATE CREATED AUTHOR 07/02/2021 [facility] DATE CREATED AUTHOR AUTHOR'S ORGANIZ ATION [facility] Care Teams (unrecognized sec tion [...] Status: Active Member Role Status Dates Zackary JASSO, FINGERNAIL SCULPTURER-C Primary Care Provider Active Team Status: Inactive Member Role Status Dates Zackary JASSO, FINGERNAIL SCULPTURER-C Primary Care Provider Active Start: July 10, 2024 End: July 10, 2024 Thomas Kamara MD Attending Provider Active St art: July 10, 2024 End: July 10, 2024 Thomas Kamara MD Referring Provider Active St art: July 10, 2024 End: July 10, 2024 Team Status: Active Member Role Status Dates Zackary JASSO, FINGERNAIL SCULPTURER-C Primary Care Provider Active Start: July 10, 2024 Thomas Kamara MD Attending Provider Active St art: July 10, 2024 Thomas Kamara MD Referring Provider Active St art: July 10, 2024 Thomas Kamara MD Other Provider Active Start: July 10, 2024 Team Status: Inactive Member Role Status Dates Zackary Srivastavader VSC, FINGERNAIL SCULPTURER-C Primary Care Provider Active Start: July 12, 2024 End: July 12, 2024 Zackary Nina VSC, FINGERNAIL SCULPTURER-C Referring Provider Active S tart: July 12, 2024 End: July 12, 2024 Thomas Kamara MD Attending Provider Active St art: July 12, 2024 End: July 12, 2024 Team Status: Inactive Member Role Status Dates Zackary Srivastavader VSC, FINGERNAIL SCULPTURER-C Primary Care Provider Active Start: July 23, 2024 End: July 23, 2024 Zackary Srivastavader VSC, FINGERNAIL SCULPTURER-C Referring Provider Active S tart: July 23, 2024 End: July 23, 2024 Thomas Kamara MD Attending Provider Active St art: July 23, 2024 End: July 23, 2024 Team Status: Inactive Member Role Status Dates Zackary Srivastavader VSC, FINGERNAIL SCULPTURER-C Primary Care Provider Active Start: August 20, 2024 End: August 20, 2024 Zackary Srivastavader VSC, FINGERNAIL SCULPTURER-C Referring Provider Active S tart: August 20, 2024 End: August 20, 2024 Thomas Kamara MD Attending Provider Active St art: August 20, 2024 End: August 20, 2024 Team Status: Inactive Member Role Status Dates Zackary Srivastavader VSC, FINGERNAIL SCULPTURER-C Primary Care Provider Active Start: October 15, 2024 End: October 15, 2024 Dr. Meaghan Foster , DO Emergency Provider Active Start: October 15, 2024 End: October 15, 2024 Team Status: Active Member Role/Relationship Status Dates Zackary Srivastavader VSC, FINGERNAIL SCULPTURER-C Primary Care Provider Active Team Status: Inactive Member Role/Relationship Status Dates Zackary Srivastavader VSC, FINGERNAIL SCULPTURER-C Primary Care Provider Active Start: July 23, 2024 End: July 23, 2024 Zackary Srivastavader VSC, FINGERNAIL SCULPTURER-C Referring Provider Active S tart: July 23, 2024 End: July 23, 2024 Thomas Kamara MD Attending Provider Active St art: July 23, 2024 End: July 23, 2024 Team Status: Inactive Member Role/Relationship Status Dates Zackary Srivastavader VSC, FINGERNAIL SCULPTURER-C Primary Care Provider Active Start: August 20, 2024 End: August 20, 2024 Zackary Wood VSC, FINGERNAIL SCULPTURER-C Referring Provider Active S tart: August 20, 2024 End: August 20, 2024 Thomas Kamara MD Attending Provider Active St art: August 20, 2024 End: August 20, 2024 Team Status: Inactive Member Role/Relationship Status Dates Zackary Wood VSC, FINGERNAIL SCULPTURER-C Primary Care Provider Active Start: October 15, 2024 End: October 15, 2024 Dr. Meaghan Foster DO Attending Provider Active Start: October 15, 2024 End: October 15, 2024 Dr. Meaghan Foster DO Emergency Provider Active Start: October 15, 2024 End: October 15, 2024 Team Status: Inactive Member Role/Relationship Status Dates Zackary Srivastavader VSC, FINGERNAIL SCULPTURER-C Primary Care Provider Active Start: November 18, 2024 End: November 18, 2024 Zackary Srivastavader VSC, FINGERNAIL SCULPTURER-C Referring Provider Active S tart: November 18, 2024 End: November 18, 2024 Uriel ROWE PA Attending Provider Active Start: November 18, 2024 End: November 18, 2024 Team Status: Inactive Member Role/Relationship Status Dates Zackary Srivastavader VSC, FINGERNAIL SCULPTURER-C Primary Care Provider Active Start: August 20, 2024 End: August 20, 2024 Zackary Srivastavader VSC, FINGERNAIL SCULPTURER-C Referring Provider Active S tart: August 20, 2024 End: August 20, 2024 Thomas Kamara MD Attending Provider Active St art: August 20, 2024 End: August 20, 2024 Team Status: Inactive Member Role/Relationship Status Dates Zackary Srivastavader VSC, FINGERNAIL SCULPTURER-C Primary Care Provider Active Start: October 15, 2024 End: October 15, 2024 Dr. Meaghan Foster DO Attending Provider Active Start: October 15, 2024 End: October 15, 2024 Dr. Meaghan Foster DO Emergency Provider Active Start: October 15, 2024 End: October 15, 2024 Team Status: Inactive Member Role/Relationship Status Dates Zackary Srivastavader VSC, FINGERNAIL SCULPTURER-C Primary Care Provider Active Start: November 18, 2024 End: November 18, 2024 Zackary Wood VSC, FINGERNAIL SCULPTURER-C Referring Provider Active S tart: November 18, 2024 End: November 18, 2024 Uriel ROWE PA Attending Provider Active Start: November 18, 2024 End: November 18, 2024 Team Status: Inactive Member Role/Relationship Status Dates Zackary Wood VSC, FINGERNAIL SCULPTURER-C Primary Care Provider Active Start: November 22, 2024 End: November 22, 2024 Zackary Wood ROMERO, FINGERNAIL SCULPTURER-C Referring Provider Active S tart: November 22, 2024 End: November 22, 2024 Raheem ROWE, PA Attending Provider Active Sta rt: November 22, 2024 End: November 22, 2024 Team Status: Inactive Member Role/Relationship Status Dates Zackary Wood ROMERO, FINGERNAIL SCULPTURER-C Primary Care Provider Active Start: November 22, 2024 End: November 23, 2024 Dr. Tommy Isbell MD Emergency Provider Active Sta rt: November 22, 2024 End: November 23, 2024 Goals (unrecognized section and content) Goals [...] BE BASED ON THE PRIMARY CLINICAL RECORDS. [facility] [employer] provides no warranty or guarantee of the accuracy or completeness of information in this document.
--- OUTSIDE RECORDS SUMMARY | 2024-11-23 14:28 | XMS RPT_ITS | CCD ---
Author Organization [facility] Care Team Providers Care Livestock Counter Name Role Phone Facundo CHUCKING MACHINE OPERATOR, Disha S Unavailable DOUGLAS Herndon RN, Jayde A Unavailable Unavailabl e DOUGLAS Herndon RN, Jayde A Unavailable Unavailabl e Facundo CHUCKING MACHINE OPERATOR, Disha S Unavailable Wood CHUCKING MACHINE OPERATOR-C, Zackary Primary Care Provider Thomas Kamara MD Attending Provider Thomas Kamara MD Referring Provider Thomas Kamara MD Other Provider Wood CHUCKING MACHINE OPERATOR-C, Zackary Referring Provider Dr. Meaghan Foster DO Emergency Provider Wood CHUCKING MACHINE OPERATOR-C, Zackary Primary Care Provider Wood CHUCKING MACHINE OPERATOR-C, Zackary Referring Provider Thomas Kamara MD Attending [...] Wood VSC, Zackary Primary Care Unavailable Anh, Thomsa Attending Unavailable Wood CHUCKING MACHINE OPERATOR-C, Zackary Primary Care Provider Wood CHUCKING MACHINE OPERATOR-C, Zackary Referring Provider [phone] [phone] Thomas Kamara MD Attending Provider Raheem Nunez Attending Provider [phone] Tommy Isbell MD Emergency Provider Medications [...] 28, 2022 12:00am May 21, 2024 10:20am Vit,Sbiy40-Xmge-Etrpk (2 sources) Start: 01-16-2015 take 1 tablet by mouth once daily Vit,Tueq14-Qbcc-Eqjvr Active 1 TABLET PO DAILY January 16, [...] MIRENA (52 MG) 20 MCG/24HR IUD LEVONORGESTREL [id number] Disha Loredo CHUCKING MACHINE OPERATOR Start: 01-10-2017 MIRENA (52 MG) 20 MCG/24HR IUD LEVONORGESTREL [id number] Disha Loredo CHUCKING MACHINE OPERATOR metroNIDAZOLE 500 mg oral tablet (6 sources) Nitroimidazole Antimicrobial Start: 01-10-2017 End: 01-17-2017 take 1 tablet by mouth twice daily METRONIDAZOLE 500 MG TABS One tablet by mouth twice daily METRONIDAZOLE [id number] Disha Loredo NP naproxen 500 mg oral [...] 16, 2018 12:00am December 27, 2022 9:12pm Vit,Tone43-Fgtz-Lzshi 1 TABLET tablet (4 sources) Start: 01-16-2015 End: 05-21-2024 take 1 tablet by mouth once daily Vit,Cyac68-Kdyl-Fbfki 1 TABLET tablet Discontinued 1 {tbl} PO DAILY January 16, 2015 12:00am May 21, 2024 10:20am Start: 01-16-2015 End: 05-21-2024 take 1 tablet by mouth once daily Vit,Axal86-Zkee-Tswwl 1 TABLET tablet Discontinued 1 {tbl} PO [...] Auto (Unsp spec) [#/Vol] 0.95 10*3/uL 0.83-4.51 [facility] Absolute neutrophil countOrd ered By: Tommy Isbell on 11-23-2024 Neutrophils (Bld) [#/Vol] 14.1 10*3/uL High 2.0-7.7 [facility] Anion gap in Serum or Plasma Ordered By: Tommy Isbell on 11-23-2024 Anion gap [Moles/Vol] 14 mmol/L 5-15 [facility] Automated lymphocyte count a s percentage of total leukocytesOrdered By: Tommyjeffery Isbell on 11-23-2024 Lymphocytes/100 WBC Auto (Unsp spec) 5.7 % Low 19-41 [facility] BUN/creatinine ratioOrdered By: Tommyjeffery Isbell on 11-23-2024 Urea nitrogen/Creatinine [Mass ratio] 10.1 mg/mg 10-20 [facility] Basophil percentageOrdered B y: Tommy Isbell on 11-23-2024 Basophils/100 WBC (Bld) 0.4 % 0-1 [facility] Bilirubin, totalOrdered By: Tommy Isbell on 11-23-2024 Bilirubin [Mass/Vol] 0.27 mg/dL 0.00-1.30 [facility] Carbon dioxide, total [Moles /volume] in Central venous bloodOrdered By: Tommy Isbell on 11-23-2024 CO2 [Moles/Vol] 19.1 mmol/L Low 21.0-32.0 [facility] Chloride assayOrdered By: Karey Isbell on 11-23-2024 Chloride [Moles/Vol] 100 mmol/L 98-108 [facility] Eosinophil percentageOrdered By: Tommyjeffery Isbell on 11-23-2024 Eosinophils/100 WBC (Bld) 0.2 % 0-5 [facility] Erythrocyte distribution wid th ratioOrdered By: Tommyjeffery Isbell on 11-23-2024 Erythrocyte distribution width (RBC) [Ratio] 14.0 % 11.6-14.6 [facility] Erythrocyte distribution wid th standard deviationOrdered By: Tommyjeffery Isbell on 11-23-2024 Erythrocyte distribution width (RBC) [Ratio] 41.8 fl 35.1-43.9 [facility] Glomerular filtration rate ( GFR) estimation/1.73 sq m using serum, plasma, or whole bOrdered By: Tommy Isbell on 11-23-2024 GFR/1.73 sq M.predicted among non-blacks MDRD (S/P/Bld) [Vol rate/Area] 119 mL/min/{1.73_m2} >60 [facility] Comment on above: mL/min/1.73m2 CKD-EP I Creatinine Equation (2020) Hematocrit Auto (Bld) [Volum e fraction]Ordered By: Tommy Isbell on 11-23-2024 Hematocrit (Bld) [Volume fraction] 35.3 % Low 37-47 [facility] Hemoglobin measurementOrdere d By: Tommy Isbell on 11-23-2024 Hemoglobin (Bld) [Mass/Vol] 11.9 g/dL Low 12.0-15.0 [facility] Immature granulocytes/100 WB C Auto (Bld)Ordered By: Tommy Isbell on 11-23-2024 Immature granulocytes/100 WBC (Bld) 1.700 % High 0.0-0.9 [facility] Comment on above: IG% - Immature Granu locytes (promyelocytes, myelocytes and metamyelocytes) > 1% indicates that a LEFT SHIFT is Present. Laboratory - Chemistry and C hemistry - challengeOrdered By: Tommy Isbell on 11-23-2024 AST [Catalytic activity/Vol] 20 U/L <32 [facility] MCV (mean corpuscular volume ) determinationOrdered By: Tommyjeffery Isbell on 11-23-2024 MCV (RBC) [Entitic vol] 82.9 fL 81-99 [facility] Mean corpuscular hemoglobin (MCH) determinationOrdered By: Tommy Isbell on 11-23-2024 MCH (RBC) [Entitic mass] 27.9 pg 27.0-32.0 [facility] Mean corpuscular hemoglobin concentration (MCHC) determinationOrdered By: Tommyjeffery Isbell on 11-23-2024 MCHC (RBC) [Mass/Vol] 33.7 g/dL 32-36 [facility] Mean platelet volume determi nationOrdered By: Tommyjeffery Isbell on 11-23-2024 Platelet mean volume (Bld) [Entitic vol] 10.1 fL 6.2-12.0 [facility] Monocyte percentageOrdered B y: Tommyjeffery Isbell on 11-23-2024 Monocytes/100 WBC (Bld) 7.2 % 0-10 [facility] Neutrophil percentageOrdered By: Tommyjeffery Isbell on 11-23-2024 Neutrophils/100 WBC (Bld) 84.8 % High 47-70 [facility] Nucleated red blood cell per centageOrdered By: Tommyjeffery Isbell on 11-23-2024 Nucleated RBC/100 WBC (Bld) [Ratio] 0 % 0-5 [facility] Platelet countOrdered By: [facility] Isbell on 11-23-2024 Platelets (Bld) [#/Vol] 283 10*3/uL 150-450 [facility] Potassium measurement (mass/ volume)Ordered By: Tommyjeffery Isbell on 11-23-2024 Potassium (Unsp spec) [Mass/Vol] 3.3 mmol/L 3.3-5.1 [facility] RBC Auto (Bld) [#/Vol]Ordere d By: Tommy Isbell on 11-23-2024 RBC (Bld) [#/Vol] 4.26 10*6/uL 4.2-5.4 [facility] Serum creatinine measurement (mass/volume)Ordered By: Tommy Isbell on 11-23-2024 Creatinine [Mass/Vol] 0.68 mg/dL Low 0.70-1.20 [facility] Serum globulin measurementOr dered By: Tommy Isbell on 11-23-2024 Globulin (S) [Mass/Vol] 3.4 g/dL 2.2-4.2 [facility] Serum glucose measurement (m ass/volume)Ordered By: Tommy Isbell on 11-23-2024 Glucose [Mass/Vol] 120 mg/dL High 70-99 [facility] Serum or plasma alanine loo otransferase (ALT) measurementOrdered By: Tommyjeffery Isbell on 11-23-2024 ALT [Catalytic activity/Vol] 18 U/L <35 [facility] Serum or plasma albumin anisa urement (mass/volume)Ordered By: Tommy Isbell 11-23-2024 Albumin [Mass/Vol] 3.6 g/dL 3.5-5.0 [facility] Serum or plasma albumin/glob ulin mass ratioOrdered By: Tommy Isbell 11-23-2024 Albumin/Globulin [Mass ratio] 1.1 {ratio} 0.9-2.4 [facility] Serum or plasma alkaline sarah sphatase measurementOrdered By: Tommy Isbell 11-23-2024 ALP [Catalytic activity/Vol] 89 U/L 35-104 [facility] Serum or plasma calcium anisa urement (mass/volume)Ordered By: Tommy Isbell 11-23-2024 Calcium [Mass/Vol] 7.9 mg/dL 7.6-11.0 [facility] Serum or plasma urea nitroge n measurement (mass/volume)Ordered By: Tommy Isbell 11-23-2024 Urea nitrogen [Mass/Vol] 7 mg/dL 4-19 [facility] Sodium levelOrdered By: Tommy Isbell 11-23-2024 Sodium [Moles/Vol] 134 mmol/L 133-145 [facility] Total proteinOrdered By: Tommy Isbell on 11-23-2024 Protein [Mass/Vol] 7.0 g/dL 5.9-8.4 [facility] White blood cell (WBC) count Ordered By: Tommy Isbell on 11-23-2024 WBC (Bld) [#/Vol] 16.6 10*3/uL High 4.4-11.0 [facility] Laboratory - Microbiology an d Antimicrobial susceptibilityOrdered By: Uriel Sims on 11-18-2024 SARS-CoV-2 (COVID-19) RNA CLEOPATRA+probe Ql (Unsp spec) Not detected [facility] No Panel InformationOrdered By: Uriel Sims on 11-18-2024 Influenza Types A,B Rapid (Clinic) Not detected [facility] Urgent Care Visit Reporton 0 11-18-2024 Urgent Care Visit Report [facility] [address], [address] [place] [address] OFFICE VISIT Date of Service: 11/18/24 MR#: [id number] Acct: [id number] Name: NAZANIN HILL Rep #: [id number] : 1995 Provider: SOLEDAD Dickens Age/Sex: 29/F Location: [facility] [place] Status: Signed Intake Vital Signs 10/15/24 14:40 11/18/24 12:06 Height 5 ft 5 in BP 116/70 Blood Pressure Location Lt brachial Position Sitting Respiration 16 Pulse 105 H Pulse Source NIBP Temp 98.9 F Temp Source Oral Pulse Oximetry (%) 98 Intake Visit Reasons: CHILLS, BODY ACHE Chief Complaint: Body Aches, Chills, No appetite Presser And Shaper Knitted Goods Required: No Is patient in pain?: No [...] the day while rotating ibuprofen and Tylenol. [facility] Medical History Wears glasses Marijuana [...] w/ similar URI complaints. Ibuprofen and acetaminophen emlg-kgf-ztpcdrf have been taking with some assist. No [...] Contact with (more content not included)... Normal [facility] Ankle min 3 Viewson 10-16-19 Ankle min 3 Views [facility] Imaging Services [address] [place], [place] [address] Ankle min 3 Views MR#: [id number] Acct: [id number] Name: NAZANIN HILL Rep #: [id number] : 1995 F 29 From: Good perez MD PCP: CHAR Sanon Status: PRE ER Study: Ankle min 3 Views Date of Exam: 10/15/24 Exam# [id number] Ordering Dr: Meaghan Foster DO PROCEDURE: ANKLE [...] fracture or dislocation is seen. Reading Location: [place] [address] CC: CHUCKING MACHINE OPERATORVeto Wood; Dr. Meaghan Foster DO Chronic Condition Nurse: Signed Normal [facility] Emergency Department Summary on 10-15-2024 Emergency Department Summary [facility] Medical Records Department [address] [place] [address] Emergency Department Summary 10/15/24 MR#: [id number] Acct: [id number] Name: NAZANIN HILL Rep #: [id number] : 1995 29 From: Meaghan Foster DO [...] any prior history of any ankle issues. 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 And I will be given a prescriptio (more content not included)... Normal [facility] Orthopedic Visit Reporton Orthopedic Visit Report [facility] [address] [place] [address] OFFICE VISIT Date of Service: 08/20/24 MR#: [id number] Acct: [id number] Name: NAZANIN HILL Rep #: [id number] : 1995 Provider: Dr. Thomas mohamud MD Age/Sex: 29/F Location: [facility] [place] Status: Signed Intake Vital [...] I 08/20/24 1133 Date [facility] Signature: Date (if applicable) CC: Normal [facility] Orthopedic Visit Reporton Orthopedic Visit Report [facility] [address] [place] [address] OFFICE VISIT Date of Service: 07/23/24 MR#: [id number] Acct: [id number] Name: NAZANIN HILL Rep #: [id number] : 1995 Provider: Dr. Thomas mohamud MD Age/Sex: 29/F Location: [facility] [place] Status: Signed Intake Vital [...] by me, Dr. Thomas Kamara MD 07/23/24 5662. Part of today???s visit was documented by [...] Cosigner Signature: Date (if applicable) CC: Normal [facility] Orthopedic Visit Reporton Orthopedic Visit Report [facility] [address] [place] [address] OFFICE VISIT Date of Service: 07/12/24 MR#: [id number] Acct: [id number] Name: NAZANIN HILL MARCIAL Rep #: [id number] : 1995 Provider: Dr. Thomas mohamud MD Age/Sex: 29/F Location: [facility] [place] Status: Signed Intake Vital [...] by me, Dr. Thomas Kamara MD 07/12/24 0969. Part of today???s visit was documented by [...] I 07/12/24 1322 Date Thomas Kamara MD [facility] Signature: Date (if applicable) CC: Normal [facility] Discharge Instructionon 06-22 Discharge Instruction [facility] Medical Records Department [address] [place] [address] Instructions for Home/Discharge Instructions 07/10/24 1038 MR#: [id number] Acct: [id number] Name: NAZANIN HILL Rep #: [id number] : 1995 29 From: Thomas Kamara MD PCP: CHAR Sanon Status:[facility] Discharge Instructions Diet Discharge Diet: No restrictions [...] Care Provider: Zackary Wood Instructions Print Language: Tuvaluan Discharge Orders/Prescriptions Prescriptions: No Action ibuprofen 600 MG tablet 600 mg PO Q6H PRN PRN (Reason: Pain) Qty: 30 0RF naproxen [Naprosyn] 500 mg tablet 500 mg PO BID PRN (Reason: pain) Qty: 20 0RF Nurtec ODT 75 mg tablet,disintegrating 75 mg PO QODAY PRN (Reason: migraine headache) Referrals / Follow Up: Zackary Wood, CHUCKING MACHINE OPERATOR-C [Primary Care Provider] - Thomas Kamara MD [Med Staff - Active Staff] - Disposition Disposition (needs filled in before D/C Order can be placed): Home, Self Care 07/10/24 1039 Thomas Kamara MD CC: CHUCKING MACHINE OPERATOR-C Zackary Wood Signed [facility] MR/POSTOP.[facility] 07-10-2024 MR/POSTOP.[facility] Medical Records Department [address] [place] [address] Anesthesia Postop Eval I 07/10/24 1043 MR#: [id number] Acct: [id number] Name: NAZANIN HILL Rep #: [id number] : 1995 29 From: Bimal Riddle CRNA PCP: CHAR Sanon [facility] Race: C [place] [facility] [place]esthesia: Postop Eval I Current Vital Signs [...] completed: Yes 07/10/24 1432 Date Bimal Riddle GASTROENTEROLOGY MANAGER Cosigner Signature: Date CC: Signed Normal [facility] MR/[id number] 07-10-2024 [facility] Medical Records Department [address] [place] [address] Anesthesia Postop Eval II 07/10/24 1145 MR#: [id number] Acct: [id number] Name: NAZANIN HILL Rep #: [id number] : 1995 29 From: Ct Handy PCP: CHAR Sanon Status:[facility] Y Race: C Location: [address] Anesthesia Postop Eval I Sum Postop Eval Completion status Anesthesia document: Postop Eval 1 completed: Yes Anesthesia Postop Eval I Summary Anesthesia Postop Eval I Summary: Anesthesia Postop Eval I: Assessment Summary Airway patent Yes 07/10/24 10:44 GASTROENTEROLOGY MANAGER.JRIV Spontaneous unlabored Yes 07/10/24 10:44 GASTROENTEROLOGY MANAGER.JRIV respirations Mental status Awake,Calm 07/10/24 10:44 GASTROENTEROLOGY MANAGER.JRIV nausea No 07/10/24 10:44 GASTROENTEROLOGY MANAGER.JRIV Vomiting No 07/10/24 10:44 GASTROENTEROLOGY MANAGER.JRIV Anesthesia Postop Eval I: Fluid Summary Crystalloid volume administer 800 07/10/24 10:44 GASTROENTEROLOGY MANAGER.JRIV (ml) Colloids volume administered ( ml) Blood Product volume administered (ml) Total IV fluid infused 800 07/10/24 10:44 GASTROENTEROLOGY MANAGER.JRIV Anesthesia Postop Eval I: Summary Notes Anesthesia Complication No 07/10/24 10:44 GASTROENTEROLOGY MANAGER.JRIV Anesthesia Complication Comment: Post-operative progress note Anesthesia: Postop Eval II Evaluation Mental status: Awake and Calm Pain Level: 1 nausea: No Vomiting: No 07/10/[address] Rudolph Signature: Date CC: Signed Normal [facility] Operative Reporton 5 Operative Report [facility] Medical Records Department [address] [place] [address] Operative Report 07/10/24 1035 MR#: [id number] Acct: [id number] Name: NAZANIN HILL MARCIAL Rep #: [id number] : 1995 29 From: Thomas Kamara MD PCP: CAHR Sanon Status:[facility] Location: [place] [address] Problems Associated Problem List Diagnoses (1) Bilateral carpal tunnel syndrome: Procedures Musculoskeletal 20xxx-29xxx: Other Procedure See Report Operative Report (Standard) Operative Information Date of Procedure: 07/10/24 Pre-Operative Diagnosis: Bilateral carpal tunnel syndrome Post-Operative Diagnosis: Same Surgery/Procedure Performed: Bilateral endoscopic carpal tunnel release chain carrier: Yes Electronic Warfare Operator: colton Tasks completed by assistant professor sculpture: Retracting Additional retail assistant manager?: No Type of Anesthesia: Local MAC RN [...] to 250 mmHg. I used the [employer] [place] endoscopic carpal tunnel kit / technique. I [...] hand and elbow no heavy lifting. cpt 14326 x2 Surgical Findings: as above Complications Complications: No Admit VTE Documentation VTE Present on Admission: No VTE Mechan Device Prophylaxis: SCD's VTE Pharm Prophylaxis ordered?: No Reason prophylaxis not ordered: Treatment Not Indicated 07/10/24 1037 Cosigner Signature (if applicable): CC: CHAR Wood; Dr. Thomas Kamara MD Signed Normal [facility] ,Urineon 07-10-2024 Beta HCG ( test) Ql (U) Negative Normal [facility] Comment on above: Result Comment: Very dilute urine specimens, as indicated by a low specific gravity, may not contain customer engagement representative levels of hCG. If is still suspected, a first morning urine specimen should be collected 48 hours later and tested. Performed By: #### L [phone] ####[facility] [id number] [place], [address] Urine testOrdered By: Valdo Louis on 07-10-2024 HCG ( test) Ql (U) Negative [facility] Comment on above: Very dilute urine sp ecimens, as indicated by a low specificgravity, may not contain customer engagement representative levels of hCG. If is still suspected, a first morning urinespecimen should be collected 48 hours later and tested. Orthopedic Visit Reporton Orthopedic Visit Report [facility] [address] [place] [address] [address] [place] [address] OFFICE VISIT Date of Service: 05/21/24 MR#: [id number] Acct: [id number] Name: NAZANIN HILL Rep #: [id number] : 1995 Provider: Dr. Thomas mohamud MD Age/Sex: 28/F Location: [facility] [place] Status: Signed Intake Vital [...] by me, Dr. Thomas Kamara MD 05/21/24 8545. Part of today???s visit was documented by [ ], acting as scribe. NAZANIN HILL is a 28 year old F here today for bilateral carpal tunnel syndrome 1.5 yrs. RHD. worse thumb index and middle fingers. trying night splinting not working. 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 worse at night. Supplemental Info [facility] Pulmonary Services/Neurology [address] [place] [address] MR#: [id number] Acct: [id number] Name: NAZANIN HILL Rep #: [id number] : 1995 28 From: Jessica Winters MD Referring Dr: Zackary Wood [facility] CHUCKING MACHINE OPERATOR-C Status: REG CLI Location: PSN Date: 01/03/24 Sex: F C NCS and/or EMG Patient Report Ordering Doctor: Zackary Wood [facility] DATE OF SERVICE: 01/03/24 Nazanin presents with [...] Multi Select Codes Neurology Neurology Interp Codes: 62695-10 Musc test done w/n test comp (interp) (2) and 90952-69 Nrv cndj test 13/> studies (interp) Coding [...] They pref (more content not included)... Normal [facility] Urgent Care Visit Reporton 1 06-25-2023 Urgent Care Visit Report [facility] [address] , [address] [place], [place] [address] [phone] OFFICE VISIT Date of Service: 04/24/24 MR#: [id number] Acct: [id number] Name: NAZANIN HILL Rep #: [id number] : 1995 Provider: SOLEDAD Dickens Age/Sex: 28/F Location[place] [facility] [place] Status: Signed Intake Vital Signs 02/19/24 16:37 [...] Complaint: BA, ST, cough, diarrhea, congest, fever Presser And Shaper Knitted Goods Required: No Is patient in pain?: No Allergies No Known Allergies Allergy (Verified 04/24/24 09:44) Is last menstrual period known: No Post menopausal: No Patient : No Have you fallen in the past year?: No Nurse's Note: BA, ST, cough, diarrhea, congest, fever x 24 hours. 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 [facility] Medical History (Updated 02/19/24 @ [...] of breath or dyspnea on exertion. No nwxi-dsy-bdsvwqr products taken to assist. Several close contacts [...] today. Patient aware of isolation recommendations and [facility] department notification. Follow-up with PCP in 5 to 7 days should symptoms not improve, ED sooner should symptoms worsen or any other concerns develop. Patient states acknowledging understanding all the above Results POC SARS AG POC SARS AG Positive Last Edit by Meagan Dey (more content not included)... Normal [facility] Urgent Care Visit Reporton 0 02-19-2024 Urgent Care Visit Report [facility] [address], [address] [place] [address] OFFICE VISIT Date of Service: 02/19/24 MR#: [id number] Acct: [id number] Name: NAZANIN HILL Rep #: [id number] : 1995 Provider: SOLEDAD Suarez Age/Sex: 28/F Location: [facility] [place] Status: Signed Intake Vital [...] EAR PAIN Chief Complaint: bilat ear pressure/popping Presser And Shaper Knitted Goods Required: No Is patient in pain?: No Allergies No Known Allergies Allergy (Verified 02/19/24 16:38) Is last menstrual period known: No Post menopausal: No Patient : No Have you fallen in the past year?: No Nurse's Note: bilat ear pressure/popping/decr eased hearing. s/s x 2 1/2 weeks after recent viral illness. all other s/s have resolved [facility] Medical History (Updated 02/19/24 @ [...] home: Yes additional social history: Single- [employer] [facility] HPI Chief Complaint: bilat ear pressure/popping Details: [...] Cosigner Signature: Date (if applicable) CC: Normal [facility] Brain W/WO Contraston 2023 Brain W/WO Contrast [facility] Imaging Services [address] [place] [address] Brain W/WO Contrast MR#: [id number] Acct: [id number] Name: NAZANIN HILL MARCIAL Rep #: [id number] : 1995 F 28 From: eDl sanchez MD PCP: CHAR Sanon Status: REG CLI Study: Brain W/WO Contrast Date of Exam: 01/30/24 Exam# [id number] Ordering Dr: Zackary Wood [facility] CHUCKING MACHINE OPERATOR-C [id number] STUDY: MRI BRAIN WITH AND WITHOUT CONTRAST [...] 9:46 EDT Reading Location ID and State: [facility] / [place] , Service support , CC: CHUCKING MACHINE OPERATOR-C Zackary Wood Chronic Condition Nurse: Signed Normal [facility] NCS and/or EMG Patienton NCS and/or EMG Patient [facility] Pulmonary Services/Neurology [address] [place] [address] MR#: [id number] Acct: [id number] Name: NAZANIN HILL Rep #: [id number] : 1995 28 From: Jessica Winters MD Referring Dr: Zackary Wood [facility] CHUCKING MACHINE OPERATOR-C Status: REG C LI Location: [facility] Date: 01/03/24 Sex: F C NCS and/or [...] Multi Select Codes Neurology Neurology Interp Codes: 54503-80 Musc test done w/n test comp (interp) (2) and 92408-93 Nrv cndj test 13/> studies (interp) 01/03/24 1513 Date Jessica Winters MD CC: CHUCKING MACHINE OPERATOR-C Zackary Wood; Dr. Jessica Winters MD Date Dictated: 01/03/241510 Date Transcribed: 01/03/241510 Chronic Condition Nurse: AA Signed Normal [facility] DIAGNOSTIC BILon 021 [facility] * * *Final Report* * * DATE OF EXAM: Mar 10 2021 1:37PM [facility] 0620 - [facility] / PROCEDURE REASON: multiple diagnoses * * * * Physician Interpretation * * * * RESULT: #[id number] - [facility] BILATERAL DIGITAL DIAGNOSTIC MAMMOGRAM WITH [...] mammographic evidence of malignancy. Tomas miller/benigno:03/10/2021 13:57:16 Printer Assistant(s): RT Frank(R)(M), [facility] Mammogram BI-RADS: 2 Benign finding Multiple national specialty organizations have released breast cancer screening guidelines for women at average risk for developing breast cancer - guidelines that are based on both evidence and opinion, yet differ on when to start and how often to screen for breast cancer. With representation from Breast Imaging, Internal Medicine, Women's Health, Family Medicine, and Medical/Surgical Oncology, the [facility] has carefully reviewed the data and [...] their providers when to stop screening mammograms. Chronic Condition Nurse: Benigno Transcribe Date/Time: Mar 10 2021 1:22P Dictated by: TOMAS RAI MD This examination was interpreted and the report reviewed and electronically signed by: TOMAS RAI MD on Mar 10 2021 1:57PM EST [id number] N Normal [facility] US BREAST LTD LTon 03-10 [facility] BREAST [facility] * * *Final Report* * * DATE OF EXAM: Mar 10 2021 1:12PM [facility] [id number] - [facility] US BREAST LTD LT / PROCEDURE REASON: multiple diagnoses * * * * Physician Interpretation * * * * #[id number] - ANGY US BREAST LTD LT LIMITED ULTRASOUND OF LEFT BREAST: 03/10/2021 HISTORY: Multiple Diagnoses. RESULT: Comparison is made to exam dated: 03/10/2021 mammogram - [facility]. Real-time ultrasound of the left breast 12-6 o'clock, and retroareolar regions was performed. Avila scale images of the real-time examination were reviewed. IMPRESSION: NEGATIVE There is no sonographic evidence of malignancy. There is no abnormality seen in the left breast to correspond with the nipple abnormality (retraction) and pain, however, clinical followup is recommended. Tomas bruceg/:03/10/2021 14:02:19 Printer Assistant(s): Breana Pacheco [facility] Ultrasound BI-RADS: 1 Negative Multiple national specialty organizations have released breast cancer screening guidelines for women at average risk for developing breast cancer - guidelines that are based on both evidence and opinion, yet differ on when to start and how often to screen for breast cancer. With representation from Breast Imaging, Internal Medicine, Women's Health, Family Medicine, and Medical/Surgical Oncology, the [facility] has carefully reviewed the data and [...] their providers when to stop screening mammograms. Chronic Condition Nurse: Benigno Transcribe Date/Time: Mar 10 2021 1:12P Dictated by : TOMAS RAI MD This examination was interpreted and the report reviewed and electronically signed by: TOMAS RAI MD on Mar 10 2021 2:02PM EST [id number] N Normal [facility] CNOVon 03-04-2021 CNOV Office Visit (OBGYWM ) NAZANIN HILL ([id number]) 1995 F Date Time Provider Department 03/04/21 8:30 AM CANDICE CANTU During your visit today, we recorded the following information about you: Blood pressure Weight Last Period 122/68 71.5 kg 03/02/21 Candice Cantu APRN.SHOP WELDER 03/04/2021 9:04 AM Signed Nazanin Hill is [...] ICD9: 611.71, ICD10: N64.4 (primary diagnosis) - [facility] - US BREAST LTD LT Given breast pain instructions. 2. Inverted nipple - ICD9: 611.79, ICD10: N64.59 - [facility] - US BREAST LTD LT [...] or sports (not underwire) bra. ? Take oadf-ozn-lzubwrz ibuprofen (Advil/Motrin) or other NSAIDs, such as naproxen (Aleve). ? Take 3 grams (3000 mg.) of evening primrose oil (available jukl-ept-zaxrbsu) in divided doses for 2 months. ? Take warm showers. ? Use warm compresses. Referring Provider: SELF [200] Allergies As of Date: 03/04/2021 (No Known Allergies) Date Reviewed: 03/04/2021 Reviewed by: Candice Cantu APRN.CNP - Fully Assessed Reason for Visit: left breast pain [Other] Cmt: nipple inverted, larger than right Primary Visit Diagnosis:Breast pain, left [N64.4] Other Visit Diagnosis:Inverted nipple [N64.59] Order(s):[facility] [[id number]] Order #: [id number] [facility] BREAST LTD LT [[id number]] Order #: [id number] Prescriptions as of 03/04/2021 - levonorgestrel (MIRENA) [...] or sports (not underwire) bra. ? Take hmly-mle-afisyqr ibuprofen (Advil/Motrin) or other NSAIDs, such as naproxen (Aleve). ? Take 3 grams (3000 mg.) of evening primrose oil (available uljj-vfx-ehbgbmk) in divided doses for 2 months. ? Take warm showers. ? Use warm compresses. Encounter Status:Closed by CANDICE CANTU on 03/04/21 Normal [facility] Singh Replaced Document: (P) PAP I -G w/rfx hrHPVon 01-14-2017 GE use only - for LinkLogic import when terms are not otherwise specified Comment Invalid Interpretation Code . [facility] HPV RFLX Comment . [facility] Microbiology: (P) Culture, G enital Comprehensiveon 01-12-2017 GE use only - for LinkLogic import when terms are not otherwise specified . Invalid Interpretation Code [facility] Work Phone: Microbiology: (P) Culture, G enital Comprehensiveon 01-11-2017 GE use only - for LinkLogic import when terms are not otherwise specified . Invalid Interpretation Code [facility] Work Phone: Office Visit: [facility] gynon 12-21 Documentation of current medications (procedure) Done Invalid Interpretation Code [facility] Fall risk assessment No Invalid Interpretation Code [facility] Protein mass conc yes [facility] Protein mass conc Done [facility] Smoking cessation education (procedure) yes Invalid Interpretation Code [facility] Tobacco smoking status DEIS Current Invalid Interpretation Code [facility] Tobacco smoking status NHIS Current every day smoker [facility] Tobacco use HS Current every day smoker Invalid Interpretation Code [facility] Office Visit: [facility] gynon 0 General categories [Interpretation] of Cervical or vaginal smear or scraping by Cyto stain Normal Invalid Interpretation Code [facility] Vital Signs Date Time Vital Sign Value Performing Clinician Facility 11-23-2024 01:42-0400 Body temperature 99.5 [degF] Zackary PARDO Work Phone: [facility] 11-23-2024 01:42-0400 Diastolic blood pressure 77 mm[Hg] Zackary PARDO Work Phone: 1(425)156-562959 [place] [address] 11-23-2024 01:42-0400 Heart rate 87 /min Zackary Wood CHUCKING MACHINE OPERATOR-C Work Phone: 4(800)376-233259 [place] [address] 11-23-2024 01:42-0400 Respiratory rate 18 /min Zackary Wood CHUCKING MACHINE OPERATOR-C Work Phone: 2(346)613-690059 [place] [address] 11-23-2024 01:42-0400 SaO2% (BldA) [Mass fraction] 98 % Zackary Wood CHUCKING MACHINE OPERATOR-C Work Phone: 2(337)921-402659 [place] [address] 11-23-2024 01:42-0400 Systolic blood pressure 120 mm[Hg] Zackary Wood CHUCKING MACHINE OPERATOR-C Work Phone: 5(181)084-482259 [place] [address] 11-22-2024 23:54-0400 Body height 165.1 cm Zackary Wood CHUCKING MACHINE OPERATOR-C Work Phone: 2(271)660-478759 [place] [address] 11-22-2024 23:54-0400 Body mass index (BMI) [Ratio] 30.5 kg/m2 Zackary Wood CHUCKING MACHINE OPERATOR-C Work Phone: 4(930)429-502759 [place] [address] 11-22-2024 23:54-0400 Body weight 83.32 kg Zackary Wood CHUCKING MACHINE OPERATOR-C Work Phone: 4(447)805-434259 [place] [address] 11-22-2024 12:55-0400 Body temperature 98.4 [degF] Zackary Wood CHUCKING MACHINE OPERATOR-C Work Phone: 2(896)757-607659 [place] [address] 11-22-2024 12:55-0400 Diastolic blood pressure 84 mm[Hg] Zackary Wood CHUCKING MACHINE OPERATOR-C Work Phone: 5(650)317-411059 [place] [address] 11-22-2024 12:55-0400 Heart rate 88 /min Zackary Wood CHUCKING MACHINE OPERATOR-C Work Phone: 0(470)308-205159 [place] [address] 11-22-2024 12:55-0400 Respiratory rate 16 /min Zackary Wood CHUCKING MACHINE OPERATOR-C Work Phone: 6(050)782-381559 [place] [address] 11-22-2024 12:55-0400 SaO2% (BldA) [Mass fraction] 98 % Zackary Wood CHUCKING MACHINE OPERATOR-C Work Phone: 4(412)456-951759 [place] [address] 11-22-2024 12:55-0400 Systolic blood pressure 122 mm[Hg] Zackary Wood CHUCKING MACHINE OPERATOR-C Work Phone: 4(222)063-014[address] [place] [address] 11-18-2024 12:06-0400 Body temperature 98.9 [degF] Zackary Wood CHUCKING MACHINE OPERATOR-C Work Phone: 3(739)787-508959 [place] [address] 11-18-2024 12:06-0400 Diastolic blood pressure 70 mm[Hg] Zackary Wood CHUCKING MACHINE OPERATOR-C Work Phone: 0(946)173-515259 [place] [address] 11-18-2024 12:06-0400 Heart rate 105 /min Zackary Wood CHUCKING MACHINE OPERATOR-C Work Phone: 0(263)917-221359 [place] [address] 11-18-2024 12:06-0400 Respiratory rate 16 /min Zackary Wood CHUCKING MACHINE OPERATOR-C Work Phone: 1(032)244-226359 [place] [address] 11-18-2024 12:06-0400 SaO2% (BldA) [Mass fraction] 98 % Zackary Wood CHUCKING MACHINE OPERATOR-C Work Phone: 0(106)703-442059 [place] [address] 11-18-2024 12:06-0400 Systolic blood pressure 116 mm[Hg] Zackary Wood CHUCKING MACHINE OPERATOR-C Work Phone: 5(134)964-810359 [place] [address] 10-15-2024 16:00-0400 Body temperature 98 [degF] Zackary Wood CHUCKING MACHINE OPERATOR-C Work Phone: 8(755)355-869459 [place] [address] 10-15-2024 16:00-0400 Diastolic blood pressure 61 mm[Hg] Zackary Wood CHUCKING MACHINE OPERATOR-C Work Phone: 3(447)785-456159 [place] [address] 10-15-2024 16:00-0400 Heart rate 81 /min Zackary Wood CHUCKING MACHINE OPERATOR-C Work Phone: 6(625)685-256259 [place] [address] 10-15-2024 16:00-0400 Respiratory rate 14 /min Zackary Wood CHUCKING MACHINE OPERATOR-C Work Phone: 4(734)689-703559 [place] [address] 10-15-2024 16:00-0400 SaO2% (BldA) [Mass fraction] 97 % Zackary Wood CHUCKING MACHINE OPERATOR-C Work Phone: 6(981)624-743759 [place] [address] 10-15-2024 16:00-0400 Systolic blood pressure 138 mm[Hg] Zackary Wood CHUCKING MACHINE OPERATOR-C Work Phone: 1(686)840-024359 [place] [address] 10-15-2024 14:40-0400 Body height 165.1 cm Zackary Wood CHUCKING MACHINE OPERATOR-C Work Phone: 2(393)815-340059 [place] [address] 10-15-2024 14:40-0400 Body mass index (BMI) [Ratio] 30.2 kg/m2 Zackary Wood CHUCKING MACHINE OPERATOR-C Work Phone: 5(595)727-322959 [place] [address] 10-15-2024 14:40-0400 Body weight 82.41 kg Zackary Wood CHUCKING MACHINE OPERATOR-C Work Phone: 5(768)013-774559 [place] [address] 08-20-2024 11:21-0400 Body mass index (BMI) [Ratio] 17.9 kg/m2 Zackary Wood CHUCKING MACHINE OPERATOR-C Work Phone: 1(327)288-576759 [place] [address] 08-20-2024 11:21-0400 Body weight 48.98 kg Zackary Wood CHUCKING MACHINE OPERATOR-C Work Phone: 6(772)027-236459 [place] [address] 07-10-2024 11:25-0500 Body temperature 97.4 [degF] Zackary Wood CHUCKING MACHINE OPERATOR-C Work Phone: 9(698)230-157859 [place] [address] 07-10-2024 11:25-0500 Diastolic blood pressure 73 mm[Hg] Zackary Wood CHUCKING MACHINE OPERATOR-C Work Phone: 3(083)194-158659 [place] [address] 07-10-2024 11:25-0500 Heart rate 82 /min Zackary Wood CHUCKING MACHINE OPERATOR-C Work Phone: 1(974)790-619259 [place] [address] 07-10-2024 11:25-0500 Respiratory rate 16 /min Zackary Wood CHUCKING MACHINE OPERATOR-C Work Phone: 6(661)428-339559 [place] [address] 07-10-2024 11:25-0500 SaO2% (BldA) [Mass fraction] 100 % Zackary Wood CHUCKING MACHINE OPERATOR-C Work Phone: 7(774)983-778059 [place] [address] 07-10-2024 11:25-0500 Systolic blood pressure 125 mm[Hg] Zackary Wood CHUCKING MACHINE OPERATOR-C Work Phone: 1(631)360-950359 [place] [address] 07-10-2024 07:47-0500 Body mass index (BMI) [Ratio] 31.5 kg/m2 Zackary Wood CHUCKING MACHINE OPERATOR-C Work Phone: 4(289)733-386459 [place] [address] 07-10-2024 07:47-0500 Body weight 86 kg Zackary Wood CHAR Work Phone: [facility] 12-28-2022 20:35-0400 Diastolic blood pressure 86 mm[Hg] [facility] 12-28-2022 20:35-0400 Heart rate 76 /min [facility] 12-28-2022 20:35-0400 Respiratory rate 16 /min [facility] 12-28-2022 20:35-0400 SaO2% (BldA) [Mass fraction] 99 % [facility] 12-28-2022 20:35-0400 Systolic blood pressure 136 mm[Hg] [facility] 12-28-2022 17:34-0400 Body height 160.02 cm [facility] 12-28-2022 17:34-0400 Body mass index (BMI) [Ratio] 28.3 kg/m2 [facility] 12-28-2022 17:34-0400 Body temperature 97.6 [degF] [facility] 12-28-2022 17:34-0400 Body weight 72.62 kg [facility] 12-27-2022 21:17-0400 Heart rate 65 /min [facility] 12-27-2022 21:17-0400 Respiratory rate 18 /min [facility] 12-27-2022 21:17-0400 SaO2% (BldA) [Mass fraction] 97 % [facility] 12-27-2022 18:18-0400 Body height 160.02 cm [facility] 12-27-2022 18:18-0400 Body mass index (BMI) [Ratio] 29.5 kg/m2 [facility] 12-27-2022 18:18-0400 Body temperature 97.2 [degF] [facility] 12-27-2022 18:18-0400 Body weight 75.65 kg [facility] 12-27-2022 18:18-0400 Diastolic blood pressure 89 mm[Hg] [facility] 12-27-2022 18:18-0400 Systolic blood pressure 124 mm[Hg] [facility] 01-10-2017 09:18-0400 BMI (Body Mass Index) 25.57 kg/m2 Disha Loredo NP [facility] 01-10-2017 09:18-0400 Body Temperature 97.8 [degF] Disha Loredo CHUCKING MACHINE OPERATOR [facility] 01-10-2017 09:18-0400 Body Temperature 97.81 [degF] Disha Loredo CHUCKING MACHINE OPERATOR [facility] 01-10-2017 09:18-0400 BP Diastolic 75 mm[Hg] Disha Loredo CHUCKING MACHINE OPERATOR [facility] 01-10-2017 09:18-0400 BP Systolic 125 mm[Hg] Disha Loredo CHUCKING MACHINE OPERATOR [facility] 01-10-2017 09:18-0400 Height 162.56 cm Disha Loredo NP [facility] 01-10-2017 09:18-0400 Pulse (Heart Rate) 80 /min Disha Loredo NP [facility] [place] 01-10-2017 09:18-0400 Respiratory Rate 16 /min Disha Loredo NP [facility] 01-10-2017 09:18-0400 Weight 67.59 kg Disha Loredo NP [facility] 01-10-2017 09:18-0400 Weight 67.58 kg Disha Loredo CHUCKING MACHINE OPERATOR [facility] Encounters Encounter Date Encounter Type Care Provider Facility Start: 11-22-2024 End: 11-23-2024 Emergency department patient visit Zackary Wood CHUCKING MACHINE OPERATOR-C Work Phone: -Emergency Department Work Phone: Start: 11-22-2024 End: 11-22-2024 ambulatory Zackary Wood CHUCKING MACHINE OPERATOR-C Work Phone: [facility] Start: 11-22-2024 End: 11-22-2024 Patient encounter procedure Raheem Santiago PA -[facility] Work Phone: Start: 11-18-2024 End: 11-18-2024 Patient encounter procedure Uriel Sims PA -[facility] Work Phone: Start: 11-18-2024 End: 11-18-2024 ambulatory Zackary Wood CHUCKING MACHINE OPERATOR-C Work Phone: -[facility] Start: 10-15-2024 End: 10-15-2024 Emergency department patient visit Zackary Wood CHUCKING MACHINE OPERATOR-C Work Phone: -Emergency Department Work Phone: Start: 08-20-2024 End: 08-20-[address] Thomas Kamara MD -[facility] Work Phone: Start: 08-20-2024 End: 08-20-2024 ambulatory Zackary Wood VSC Facility:[facility] Start: 07-23-2024 End: 07-23-[address] [facility] Work Phone: Start: 07-23-2024 End: 07-23-2024 ambulatory Zacakry Wood VS Facility:[facility] Start: 07-19-2024 Encounter for other preprocedural examination Thomas Kamara [facility] Start: 07-12-2024 End: 07-12-[address] Thomas Kamara MD -[facility] Work Phone: Start: 07-12-2024 End: 07-12-2024 ambulatory Zackary Wood VSC Facility:[facility] [place] [facility] Start: 07-10-2024 ambulatory Thomas Kamara Facility :[facility] Start: 07-10-2024 Non-patient / Non-visit Dr. Solitario Kamara MD -[facility] Start: 07-10-2024 End: 07-10-2024 Admission to same day surgery center Dr. Thomas Kamara MD [facility] Start: 07-10-2024 End: 07-10-2024 ambulatory Zackary Wood VSC Facility:[facility] Start: 05-21-2024 End: 05-21-2024 ambulatory Zackary Wood VSC Facility:[facility] Start: 04-24-2024 End: 04-24-2024 ambulatory Uriel ROWE Facility:[facility] Start: 02-19-2024 End: 02-19-2024 ambulatory Raheem ROWE Facility:[facility] Start: 01-30-2024 End: 01-30-2024 ambulatory Zackary Wood VS Facility:[facility] Start: 01-03-2024 ambulatory Jessica Winters Facility:[facility] Start: 01-03-2024 End: 01-03-2024 ambulatory Zackary Wood VSC Facility:[facility] Start: 12-28-2022 End: 12-28-2022 Emergency department patient visit [facility] Work Phone: Start: 12-27-2022 End: 12-27-2022 Emergency department patient visit [facility] Work Phone: Procedures Date Procedure Procedure Detail Performing Clinician Start: 11-23-2024 X-ray of chest, PA a nd lateral views Zackary Wood CHUCKING MACHINE OPERATOR-C Work Phone: Start: 11-23-2024 Estimated creatinine clearance Zackary Wood CHUCKING MACHINE OPERATOR-C Work Phone: Start: 10-15-2024 X-ray of ankle, thre e or more views Zackary Wood CHUCKING MACHINE OPERATOR-C Work Phone: Start: 12-28-2022 CT of lumbar [...] Date Care Activity Detail Author Start: 11-23-2024 [facility] Start: 10-15-2024 [facility] Start: 07-10-2024 Anes nerve muscle tdn fascia&bursa forearm wrist ANESTH LOWER ARM SURGERY [facility] Start: 07-10-2024 Ndsc wrst surg w/rls transvrs carpl ligm WRIST ENDOSCOPY/SURGERY [facility] Start: 07-10-2024 Patient discharge [facility] Start: 07-10-2024 Application of ice collar, cap or bag [facility] Start: 07-10-2024 Assessment of risk of venous thromboembolism [facility] Start: 07-10-2024 Catheterization of vein [facility] Start: 07-10-2024 Deep breathing and coughing exercises [facility] Start: 07-10-2024 Following clinical pathway protocol [facility] Start: 07-10-2024 Incentive spirometry [facility] Start: 07-10-2024 Introduction of urinary catheter [facility] Start: 07-10-2024 Patient education [facility] Start: 07-10-2024 Taking patient vital signs [facility] Start: 07-10-2024 Vital signs measurements [facility] Start: 07-10-2024 End: 07-10-2024 [facility] Start: 07-10-2024 Medication education [facility] Start: 01-26-2017 End: 01-26-2017 Appointment Appointment [facility] Work Phone: Start: 01-10-2017 End: 01-10-2017 Appointment Appointment [facility] [place] Start: 01-10-2017 End: 01-16-2017 Bacteria genital culture *CUV - Culture, VAG/CX Comprehensive [facility] Work Phone: Patient Education [facility] Work Phone: Patient referral [facility] Work Phone: [facility] Immunizations Immunization Date Immunization Notes Care Provider Charlene molina 02-16-2018 influenza, injectabl e, quadrivalent, preservative free Zackary Wood CHUCKING MACHINE OPERATOR-C Work Phone: [facility] 02-16-2018 influenza, seasonal, injectable [facility] 12-05-2017 tetanus toxoid, redu reji diphtheria toxoid, and acellular pertussis vaccine, adsorbed [facility] Payers Date Payer Category Payer Self-pay [id number] 2023 Unknown [id number] 2014 Unknown [id number] 2014 Unknown [facility] [id number] Unknown [facility] D *DO NOT USE* [id number] Unknown [id number] Unknown [id number] Unknown [id number] Unknown [id number] Unknown [id number] Unknown [id number] Unknown [id number] [id number] Unknown [id number] Unknown [id number] Unknown [id number] [id number] Unknown [id number] Unknown [id number] [id number] Unknown [id number] Social History Date Type Detail Facility Start: 12-27-2022 End: 12-28-2022 Tobacco smoking status NHIS Unknown if ever smoked [facility] Start: 02-14-2018 None [facility] Start: 1995 Sex Assigned At Female [facility] Start: 10-15-2024 End: 11-23-2024 Tobacco smoking status NHIS Current some day smoker [facility] NEGATED: Highlighted row [facility] NEGATED: Highlighted row Not [facility] Goals Date Patient Goal Desired Activity /State Mental Status Date Assessment Result Facility 11-23-2024 Cognitive function Level Of Cons ciousness Awake;Alert;Appropriate;Follow s Commands [facility] Work Phone: 07-10-2024 Cognitive function Voice/Name [facility] Work Phone: 12-28-2022 Cognitive function Level Of Cons ciousness Awake;Alert;Appropriate [facility] Work Phone: Clinical Notes 03-04-2021 to 11-23-2024 Note Date & Type Note Facility 11-23-2024 Discharge summary [facility] 11-23-2024 Radiology Diagnostic study note [facility] Imaging Services [address] [place] [address] Chest PA and Lateral MR#: [id number] Acct: [id number] Name: ROBERTNAZANINALEIDA CEJA Rep #: [id number] : 1995 F 29 From: Ninoska Zacarias MD PCP: CHAR [facility]on Status: REG ER Study:Chest PA and Lateral Date of Exam: 11/23/24 Exam# [id number] Ordering Dr: Karey Isbell MD PROCEDURE: CHEST PA AND LATERAL 11/23/2024 REASON FOR EXAM: COUGH AND FEVER TECHNIQUE: CHEST PA AND LATERAL COMPARISON: No FINDINGS: Normal heart size. Well inflated lungs. No consolidation, effusion, or pneumothorax. RAD/Chest PA and Lateral IMPRESSION: No acute chest findings. Reading Location: [facility] CC: CHUCKING MACHINE OPERATOR-C Zackary Wood; Dr. Tommy Isbell MD ~ Chronic Condition Nurse: Signed [facility] 10-15-2024 Radiology Diagnostic study note [facility] Imaging Services [address] [place], [place] [id number] Ankle min 3 Views MR#: [id number] Acct: [id number] Name: NAZANIN HILL Rep #: [id number] : 1995 F 29 From: Francisco Tirado MD PCP: CHAR Sanon Status: PRE ER Study:Ankle min 3 Views Date of Exam: Exam# [id number] Ordering Dr: Florina Foster DO PROCEDURE: ANKLE [...] fracture or dislocation is seen. Reading Location: [place] [address] CC: CHAR Wood; Dr. Meaghan Foster DO ~ Chronic Condition Nurse: Signed [facility] 09-19-2024 Hospital Discharge instructions Additional Instructions Ice and elevate ankle is much as possible. Wear air stirrup and use crutches as needed. You may also take Tylenol. [facility] Work Phone: 08-20-2024 Evaluation note Diagnosis Onset Date Resolution Bilateral carpal tunnel syndrome acute August 20, 2024 11:18am [facility] Work Phone: 1(772) 933-521304-01-2025 Evaluation note* Diagnosis Onset Date Resolution Status Admit Date Bilateral carpal tunnel syndrome acu te August 20, 2024 11:18am Contact with or suspected exposure to other viral communicable disease acute November 22, 2 025 12:34pm Cystitis acute November 22, 2024 12:34pm [facility] Work Phone: 1(533) 848-663303-04-2025 Evaluation note* Diagnosis Onset Date Resolution Status Admit Date Bilateral carpal tunnel syndrome acu te July 23, 2024 12:57pm Bilateral carpal tunnel syndrome acu te August 20, 2024 11:18am [facility] Work Phone: 1(209) 103-676402-19-2025 [facility] Medical Records Department [address] [place] [address] History Physical Exam 07/10/24 0937 MR#: [id number] Acct: [id number] Name: NAZANIN HILL Rep #: [id number] : 1995 29 From: Thomas Kamara MD PCP: CHAR Sanon Status:[place] [facility] [address] HPI - General HPI Narrative NAZANIN HILL, is a 29 F who presents for bilat ECTRs. no change to h and p. rab post op instructions discussed. ok to proceed. both wrists marked. MR#: [id number] Acct: [id number] Name: NAZANIN HILL Rep #: [id number] : 1995 Provider: Dr. Thomas Kamara MD Age/Sex: 28/F [place] [facility] [place]: Signed Intake Vital Signs 02/19/2416:37 05/21/2409:18 [...] night splinting not working. 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 worse at night. Supplemental Info [facility] Pulmonary Services/Neurology [address] [place] [address] MR#: [id number] Acct: [id number] Name: NAZANIN HILL Rep #: [id number] : 1995 28 From: Jessica Winters MD Referring Dr: Zackary Wood [facility] CHUCKING MACHINE OPERATOR-C Status: REG CLI Location: PSN Date: 01/03/24 Sex: F C NCS and/or EMG Patient Report Ordering Doctor: Zackary Wood [facility] DATE OF SERVICE: 01/03/24 Nazanin presents with [...] Multi Select Codes Neurology Neurology Interp Codes: 66632-77 Musc test done w/n test comp (interp) (2) and 61094-25 Nrv cndj test 13/> studies (interp) Coding Level of Care Code Off vis,new,level 3 Diagnoses Bilateral carpal tunnel syndrome G56.03 Assessment and Plan Assessment and Plan (1) Bilateral carpal tunnel syndrome: Status: Acute Plan: 30 (more content not included)...[facility]02-19-2025 Evaluation note* Diagnosis Onset Date Resolution Status Admit Date Bilateral carpal tunnel syndrome acute July 10, 7:27am Bilateral carpal tunnel syndrome acute July 12 1:02pm Bilateral carpal tunnel syndrome acute July 23, 2024 12:57pm Bilateral carpal tunnel syndrome acute August 20, 2024 11:18am [facility] Work Phone: [phone]) 627-168110-20-2021 NoteHNO ID: [id number] Author: RT Frank(R) Service: ? Author Type: [...] BY: RT Frank(R) March 10, 2021 1:21 [facility]10-14-2021 NoteHNO ID: [id number] Author: Candice Cantu APRN.SHOP WELDER Service: ? Author Type: Nurse Practitioner Type: [...] ICD9: 611.71, ICD10: N64.4 (primary diagnosis) - [facility] - US BREAST LTD LT Given breast pain instructions. 2. Inverted nipple - ICD9: 611.79, ICD10: N64.59 - [facility] - US BREAST LTD LT Will notify of results. Follow- up as needed. Candice Cantu, MARÍA.SHOP WELDER Medical Decision Making: Problems: Moderate: New problem with uncertain prognosis Data: Unique test(s) ordered: 2 Medical Decision Making Level: 3 - [facility] summary Author Tommy Isbell [facility] Note Date/Time November 23, 2024 1:29a m [facility] Medical Records Department [address] [place] [address] Emergency Department Summary 11/23/24 MR#: [id number] Acct: [id number] Name: NAZANIN HILL Rep #:[id number] : [...] Prior similar symptoms: Yes Recent Illness/Hospitalization: Yes [facility] Medical History Wears glasses Marijuana use [...] 84.8 H Lymph % (Auto) 5.7 L [place] % (Auto) 7.2 Eos % (Auto) 0.2 [...] IMPRESSION: No acute chest findings. Reading Location: [place] [address] Treatment and Re-Evaluation Comments:: Patient was told [...] Care Provider: Zackary Wood Referrals: Zackary Wood, CHUCKING MACHINE OPERATOR-C [Primary Care Provider] - 1 Week if not improving Activity Restrictions/Additional Instructions: 1. Take 4 ibuprofen tablets every 8 hours for the next 24 to 48 hours. 2. Increase your fluid intake 3. If anything changes do not hesitate to return or follow-up with your provider Zackary Wood. Print Language: Tuvaluan Disposition Disposition: Home, Self Care What to do if you have Problems For any increased pain, shortness of breath, bleeding, nausea or vomiting, chestpain, or any unexpected problems, contact your Primary Care Provider. Call [facility] ([phone]) or report to the closest Emergency Room. Call 911 if necessary. 11/23/24 0129 <Electronically signed by Tommy Isbell MD> Cosigner Signature (if applicable): CC: CHAR Wood ~ Signed [facility] Work Phone: Evaluation noteNo assessment information available [facility] Work Phone: Hospital Discharge instructionsAdditional Instructions 1. Take 4 ibuprofen tablets every 8 hours for the next 24 to 48 hours. 2. Increase your fluid intake 3. If anything changes do not hesitate to return or follow-up with your provider Zackary Wood.[facility] Work Phone: Reason for referral (narrative)No reason for referral information availableWSumma Health [facility] Work Phone: Summary Purpose Family History Relationship Condition Age at Onset Recorded Date/T gilberto grandmother Diabetes mellitus Unknown Advance Directives Advance Directive Response Recorded Date/ Time Living Will No December 27, 2022 6:17pm Power of Brewery Technician No December 27 6:17pm Advance Directive Response Recorded Date/ Time Living Will No December 28, 2022 5:41pm Power of Brewery Technician No December 28 5:41pm Advance Directive Response Recorded Date/ Time Living Will No July 01 2:49pm Do you have a Healthcare Power of Brewery Technician? No July 01, 2024 2:49pm Do you have a Healthcare Power of Brewery Technician? No October 15, 2024 4:00pm Advance Directive Response Recorded Date/ Time Do you have a Healthcare Power of Brewery Technician? No October 15, 2024 4:00pm Advance Directive Response Recorded Date/ Time Do you have a Healthcare Power of Brewery Technician? No October 15, 2024 4:00pm Do you have a Healthcare Power of Brewery Technician? No November 23, 2024 12:05am Chief Complaint [...] section and content) DATE CREATED AUTHOR 07/02/2021 [facility] DATE CREATED AUTHOR AUTHOR'S ORGANIZ ATION 11/19/2024 [facility] Care Teams (unrecognized sec tion [...] Active Member Role Status Dates Zackary JASSO, CHUCKING MACHINE OPERATOR-C Primary Care Provider Active Team Status: Inactive Member Role Status Dates Zackary JASSO, CHUCKING MACHINE OPERATOR-C Primary Care Provider Active Start: July 10, 2024 End: July 10, 2024 Thomas Kamara MD Attending Provider Active St art: July 10, 2024 End: July 10, 2024 Thomas Kamara MD Referring Provider Active St art: July 10, 2024 End: July 10, 2024 Team Status: Active Member Role Status Dates Zackary JASSO, CHUCKING MACHINE OPERATOR-C Primary Care Provider Active Start: July 10, 2024 Thomas Kamara MD Attending Provider Active St art: July 10, 2024 Thomas Kamara MD Referring Provider Active St art: July 10, 2024 Thomas Kamara MD Other Provider Active Start: July 10, 2024 Team Status: Inactive Member Role Status Dates Zackary Srivastavader VSC, CHUCKING MACHINE OPERATOR-C Primary Care Provider Active Start: July 12, 2024 End: July 12, 2024 Zackary Nina VSC, CHUCKING MACHINE OPERATOR-C Referring Provider Active S tart: July 12, 2024 End: July 12, 2024 Thomas Kamara MD Attending Provider Active St art: July 12, 2024 End: July 12, 2024 Team Status: Inactive Member Role Status Dates Zackary Srivastavader VSC, CHUCKING MACHINE OPERATOR-C Primary Care Provider Active Start: July 23, 2024 End: July 23, 2024 Zackary Srivastavader VSC, CHUCKING MACHINE OPERATOR-C Referring Provider Active S tart: July 23, 2024 End: July 23, 2024 Thomas Kamara MD Attending Provider Active St art: July 23, 2024 End: July 23, 2024 Team Status: Inactive Member Role Status Dates Zackary Srivastavader VSC, CHUCKING MACHINE OPERATOR-C Primary Care Provider Active Start: August 20, 2024 End: August 20, 2024 Zackary Srivastavader VSC, CHUCKING MACHINE OPERATOR-C Referring Provider Active S tart: August 20, 2024 End: August 20, 2024 Thomas Kamara MD Attending Provider Active St art: August 20, 2024 End: August 20, 2024 Team Status: Inactive Member Role Status Dates Zackary Srivastavader VSC, CHUCKING MACHINE OPERATOR-C Primary Care Provider Active Start: October 15, 2024 End: October 15, 2024 Dr. Meaghan Foster , DO Emergency Provider Active Start: October 15, 2024 End: October 15, 2024 Team Status: Active Member Role/Relationship Status Dates Zackary Srivastavader VSC, CHUCKING MACHINE OPERATOR-C Primary Care Provider Active Team Status: Inactive Member Role/Relationship Status Dates Zackary Srivastavader VSC, CHUCKING MACHINE OPERATOR-C Primary Care Provider Active Start: July 23, 2024 End: July 23, 2024 Zackary Srivastavader VSC, CHUCKING MACHINE OPERATOR-C Referring Provider Active S tart: July 23, 2024 End: July 23, 2024 Thomas Kamara MD Attending Provider Active St art: July 23, 2024 End: July 23, 2024 Team Status: Inactive Member Role/Relationship Status Dates Zackary Srivastavader VSC, CHUCKING MACHINE OPERATOR-C Primary Care Provider Active Start: August 20, 2024 End: August 20, 2024 Zackary Wood VSC, CHUCKING MACHINE OPERATOR-C Referring Provider Active S tart: August 20, 2024 End: August 20, 2024 Thomas Kamara MD Attending Provider Active St art: August 20, 2024 End: August 20, 2024 Team Status: Inactive Member Role/Relationship Status Dates Zackary Wood VSC, CHUCKING MACHINE OPERATOR-C Primary Care Provider Active Start: October 15, 2024 End: October 15, 2024 Dr. Meaghan Foster DO Attending Provider Active Start: October 15, 2024 End: October 15, 2024 Dr. Meaghan Foster DO Emergency Provider Active Start: October 15, 2024 End: October 15, 2024 Team Status: Inactive Member Role/Relationship Status Dates Zackary Srivastavader VSC, CHUCKING MACHINE OPERATOR-C Primary Care Provider Active Start: November 18, 2024 End: November 18, 2024 Zackary Srivastavader VSC, CHUCKING MACHINE OPERATOR-C Referring Provider Active S tart: November 18, 2024 End: November 18, 2024 Uriel ROWE PA Attending Provider Active Start: November 18, 2024 End: November 18, 2024 Team Status: Inactive Member Role/Relationship Status Dates Zackary Srivastavader VSC, CHUCKING MACHINE OPERATOR-C Primary Care Provider Active Start: August 20, 2024 End: August 20, 2024 Zackary Srivastavader VSC, CHUCKING MACHINE OPERATOR-C Referring Provider Active S tart: August 20, 2024 End: August 20, 2024 Thomas Kamara MD Attending Provider Active St art: August 20, 2024 End: August 20, 2024 Team Status: Inactive Member Role/Relationship Status Dates Zackary Srivastavader VSC, CHUCKING MACHINE OPERATOR-C Primary Care Provider Active Start: October 15, 2024 End: October 15, 2024 Dr. Meaghan Foster DO Attending Provider Active Start: October 15, 2024 End: October 15, 2024 Dr. Meaghan Foster DO Emergency Provider Active Start: October 15, 2024 End: October 15, 2024 Team Status: Inactive Member Role/Relationship Status Dates Zackary Srivastavader VSC, CHUCKING MACHINE OPERATOR-C Primary Care Provider Active Start: November 18, 2024 End: November 18, 2024 Zackary Wood VSC, CHUCKING MACHINE OPERATOR-C Referring Provider Active S tart: November 18, 2024 End: November 18, 2024 Uriel ROWE PA Attending Provider Active Start: November 18, 2024 End: November 18, 2024 Team Status: Inactive Member Role/Relationship Status Dates Zackary Wood VSC, CHUCKING MACHINE OPERATOR-C Primary Care Provider Active Start: November 22, 2024 End: November 22, 2024 Zackary Wood ROMERO, CHUCKING MACHINE OPERATOR-C Referring Provider Active S tart: November 22, 2024 End: November 22, 2024 Raheem ROWE, PA Attending Provider Active Sta rt: November 22, 2024 End: November 22, 2024 Team Status: Inactive Member Role/Relationship Status Dates Zackary Wood ROMERO, CHUCKING MACHINE OPERATOR-C Primary Care Provider Active Start: November 22, [...] BE BASED ON THE PRIMARY CLINICAL RECORDS. [facility] [employer] provides no warranty or guarantee of the accuracy or completeness of information in this document.
== END | disposition home or self-care (01) ==
LOC: LABSPEC 14:25
PROVIDERS: PCP Nurse Practitioner Family; Visit Provider Physician Assistant Surgical
DX: R50.9 Fever, unspecified (principal); M54.9 Dorsalgia, unspecified; M79.10 Myalgia, unspecified site
CPT/HCPCS: 87077; 87086; 87088; 87186

== ENCOUNTER → 2024-11-27 | Outpatient (CLI) | payer MEDICAID, SELFPAY ==
[2024-12-02 14:08] LABS: HPV APTIMA, High Risk Negative (Negative)
== END | disposition home or self-care (01) ==
PROVIDERS: PCP Nurse Practitioner Family; Referring Provider Advanced Practice Midwife; Visit Provider Advanced Practice Midwife
DX: Z12.4 Encounter for screening for malignant neoplasm of cervix (principal); N89.8 Other specified noninflammatory disorders of vagina
CPT/HCPCS: 87070; 87205; 87624; 88175; G0145